=== PATIENT | female | born 1955 | race Caucasian/White ===

== ENCOUNTER 2018-01-31 13:08 | Inpatient (IN) | payer MEDICARE, MEDICAID ==
[2018-01-31 13:39] LABS: % BASOPHILS 0.9 % (0.0-2.0); % EOSINOPHILS 1.1 % (0.0-5.0); % LYMPHOCYTES 31.5 % (20.0-50.0); % MONOCYTES 8.7 % (2.0-10.0); % NEUTROPHILS 57.8 % (40.0-80.0); EOSINOPHILE ABSOLUTE 0.1 Th/cmm (0.1-0.4); HEMATOCRIT 35.2 % (41.0-60); LYMPHOCYTE ABSOLUTE 1.6 Th/cmm (1.5-3.0); MEAN CORPUSCULAR HEMOGLOBIN 32.5 pg (27.0-31.0); MEAN CORPUSCULAR HGB CONC 34.2 pg (28.0-36.0); MEAN PLATELET VOLUME 6.7 fl; MONOCYTE ABSOLUTE 0.5 Th/cmm (0.3-1.0); PLATELET COUNT 202 Th/cmm (150-400); RED CELL DISTRIBUTION WIDTH 13.1 % (11.5-20.0); WHITE BLOOD COUNT 5.2 Th/cmm (4.8-10.8)
--- NOTE | 2018-01-31 14:03 | ED Physician Chart ---
ED Chief Complaint/HPI - Patient Information Date Seen:: 01/31/18 Time Seen:: 13:20 Chief Complaint:: Agitation History of Present Illness:: onset x 3 days of agitation and hostile behavior; no report of trauma, H/As, neck pain, C/P, SOB, Abd. Pain, A/N/V/D/C, fever, chills, SIs, or urinary s/s Allergies:: Allergies Allergy/AdvReac Type Severity Reaction Status Date / Time No Known Allergies Allergy Verified 01/31/18 13:20 Vitals:: Vital Signs - 8 hr 01/31/18 13:20 Temp 98.4 F HR 65 RR 16 BP 112/63 O2 Sat % 98 Historian:: Patient, EMS Review:: Nurse's Note Reviewed, Old Chart Reviewed, EMS run form Reviewed ED Review of Systems - Review of Systems General/Constitutional: No fever, No chills, No weight loss, No weakness, No diaphoresis, No edema, No loss of appetite Skin: No skin lesions, No rash, No bruising Head: No headache, No light-headedness Eyes: No loss of vision, No pain, No diplopia ENT: No earache, No nasal drainage, No sore throat, No tinnitus Neck: No neck pain, No swelling, No thyromegaly, No stiffness, No mass noted Cardio Vascular: No chest pain, No palpitations, No PND, No orthopnea, No edema Pulmonary: No SOB, No cough, No sputum, No wheezing GI: No nausea, No vomiting, No diarrhea, No pain, No melena, No hematochezia, No constipation, No hematemesis G/U: No dysuria, No frequency, No hematuria, No nacturia Scrap Drop Engineer: No vaginal discharge, No abnormal vaginal bleed, No contraction Musculoskeletal: No bone or joint pain, No back pain, No muscle pain Endocrine: No polyuria, No polydipsia Psychiatric: Prior psych history, Depression, Anxiety, No suicidal ideation, No homicidal ideation, No auditory hallucination, No visual hallucination Hematopoietic: No bruising, No lymphadenopathy Allergic/Immuno: No urticaria, No angioedema Neurological: No syncope, No focal symptoms, No weakness, No paresthesia, No headache, No seizure, No dizziness, No confusion, No vertigo ED Past Medical History - Past Medical History Obtainable: Yes Past Medical History: HTN, Other (Subdural Hematoma) Family History: HTN Social History: Non Smoker, No Alcohol, No Drug Use, Single, Care Facility Surgical History: None Psychiatricy History: Depression, Bipolar Medication: Reviewed ED Physical Exam - Physical Examination General/Constitutional: Awake, Well-developed, well-nourished, Alert, No distress, GCS 15, Non-toxic appearing, Ambulatory Head: Atraumatic Eyes: Lids, conjuctiva normal, PERRL, EOMI Skin: Nl inspection, No rash, No skin lesions, No ecchymosis, Well hydrated, No lymphadenopathy ENMT: External ears, nose nl, TM canals nl, Nasal exam nl, Lips, teeth, gums nl , Oropharynx nl, Tonsils nl Neck: Nontender, Full ROM w/o pain, No JVD, No nuchal rigidity, No bruit, No mass, No stridor Respiratory: Nl effort/Exclusion, Clear to Auscultation, No Wheeze/Rhonchi/Rales Cardio Vascular: RRR, No murmur, gallop, rubs, NL S1 S2 GI: No tenderness/rebounding/guarding, No organomegaly, No hernia, Normal BS's, Nondistended, No mass/bruits, No McBurney tenderness Other GI comments:: no pulsatile masses : No CVA tenderness Extremities: No tenderness or effusion, Full ROM, normal strength in all extremities, No edema, Normal digits & nails Neuro/Psych: Alert/oriented, DTR's symmetric, Normal sensory exam, Normal motor strength, Judgement/insight normal, Mood normal, Normal gait, No focal deficits Other Neuro/Psych comments:: + Psychomotor Agitation; no SIs; Mood/Affect: Labile Misc: Normal back, No paraspinal tenderness ED Labs/Radiology/EKG Results - Lab Results Results: Laboratory Tests 01/31/18 13:30 WBC 5.2 RBC 3.70 L Hgb 12.0 Hct 35.2 L MCV 95.0 MCH 32.5 H MCHC Differential 34.2 RDW 13.1 Plt Count 202 MPV 6.7 Neutrophils % 57.8 Lymphocytes % 31.5 Monocytes % 8.7 Eosinophils % 1.1 Basophils % 0.9 Comments:: Reviewed ED Septic Shock - . Is Septic Shock (SBP<90, OR Lactate>4 mmol\L) present?: No - <6hrs of presentation: Vital Signs: Vital Signs - 8 hr 01/31/18 13:20 Temp 98.4 F HR 65 RR 16 BP 112/63 O2 Sat % 98 ED Reassessment (Disposition) - Reassessment Reassessment Condition:: Improved - Diagnosis Diagnosis:: Agitation; Psychosis; Medical Clearance; Bipolar Disorder; UTI; Affective Disorder - Aftercare/Follow up Instructions Aftercare/Follow-Up Instructions:: Counseled pt regarding lab results/diagnosis & need follow up, Counseled pt & family regarding lab results/diagnosis & need follow up - Patient Disposition Discharge/Transfer:: Acute Care w/in this hosp Admitted to:: [facility] Condition at Disposition:: Stable, Improved
[2018-01-31 14:05] LABS: ACETAMINOPHEN < 10.0 ug/mL (10.0-30.0); ALB/GLOB RATIO 1.1 (1.0-1.8); ALBUMIN 3.5 gm/dL (3.7-5.3); ALKALINE PHOSPHATASE 68 U/L (34-104); ANION GAP 8.8 (7.0-16.0); BILIRUBIN,TOTAL 0.3 mg/dL (0.3-1.0); BUN - UREA NITROGEN 25 mg/dL (7-25); CALCIUM SERUM 9.1 mg/dL (8.6-10.3); CARBON DIOXIDE 28.3 mEq/L (21.0-31.0); CHLORIDE 104 mEq/L (98-107); CHOLESTEROL 191 mg/dL (<200); CREATININE - SERUM 1.1 mg/dL (0.6-1.2); GFR AFRICAN-AMERICAN > 60.0 ml/min (>90); GFR NON AFRICAN-AMERICAN 53.7 ml/min; GLUCOSE 92 mg/dL (70-105); HDL -HIGH DENSITY LIPOPROTEIN 76 mg/dL (23-92); POTASSIUM SERUM 4.1 mEq/L (3.5-5.1); SALICYLATES (ASPIRIN) < 25.0 mg/L (30.0-100.0); SGOT 18 U/L (13-39); SGPT/ALT 12 U/L (7-52); SODIUM SERUM 137 mEq/L (136-145); TOTAL PROTEIN,SERUM 6.6 gm/dL (6.0-8.3); TRIGLYCERIDES 111 mg/dL (<150)
[2018-01-31 14:56] LABS: URINE SOURCE CLEAN C
[2018-01-31 14:59] LABS: URINE BILIRUBIN NEGATIVE (NEGATIVE); URINE BLOOD SMALL (NEGATIVE); URINE GLUCOSE (UA) NEGATIVE (NEGATIVE); URINE KETONE NEGATIVE (NEGATIVE); URINE LEUKOCYTE ESTERASE MODERATE (NEGATIVE); URINE MICROSCOPIC INDICATED? YES; URINE NITRATE POSITIVE (NEGATIVE); URINE PROTEIN NEGATIVE (NEGATIVE); URINE UROBILINOGEN 0.2 E.U./dL (0.2 - 1.0)
[2018-01-31 15:24] LABS: AMPHETAMINE URINE NEGATIVE (NEGATIVE); BARBITURATES URINE NEGATIVE (NEGATIVE); BENZODIAZEPINES QUAL URINE NEGATIVE (NEGATIVE); CANNABINOID THC NEGATIVE (NEGATIVE); COCAINE METABOLITE QUAL URINE NEGATIVE (NEGATIVE); METHADONE URINE NEGATIVE (NEGATIVE); METHAMPHETAMINES QUAL URINE NEGATIVE (NEGATIVE); OPIATES (MORPHINE) QUAL. URINE NEGATIVE (NEGATIVE); PHENCYCLIDINE (PCP) URINE NEGATIVE (NEGATIVE); TRICYCLICS (TCA) QUAL. URINE POSITIVE (NEGATIVE); URINE CLARITY HAZY (CLEAR); URINE COLOR YELLOW
[2018-01-31 15:26] LABS: URINE EPITHELIAL CELLS MODERATE /lpf (FEW)
[2018-01-31 15:27] LABS: URINE BACTERIA 4+ /hpf (NONE SEEN)
[2018-01-31] MEDS ORDERED: Maalox 30 mL Cup PO PRN ×2 (16:56→17:47)
[2018-01-31] MEDS ORDERED: Magnesium Hydroxide (MOM) 30 mL UDC PO PRN ×2 (16:56→17:47)
[2018-01-31 17:45] VITALS: BP 112/63
--- NOTE | 2018-01-31 22:11 | History & Physical ---
ADMIT DATE: 01/31/2018 HISTORY OF PRESENT ILLNESS: The patient is a 62-year-old female with long history of hypothyroidism, seizure disorder, renal insufficiency, dementia, psychosis, [facility] under Dr. Wagner's service for evaluation and treatment. The patient is a poor historian. On admission, the patient has some episode of agitation. The blood workup is significant for urinary tract infection. The patient was started on antibiotic, resumed on her medication. PAST MEDICAL HISTORY: Significant for hypothyroidism, seizure disorder, psychosis, dementia. PAST SURGICAL HISTORY: No recent surgery. ALLERGIES: None. MEDICATIONS: Follow admission reconciliation. SOCIAL HISTORY: No smoking, no alcohol, no drug. FAMILY HISTORY: Noncontributory. REVIEW OF SYSTEMS: SYSTEM: No history of chronic immuno disorder. CARDIOVASCULAR SYSTEM: No coronary artery disease. ENDOCRINE SYSTEM: She has history of hypothyroidism. GASTROINTESTINAL SYSTEM: No upper or lower GI bleed. NEUROLOGICAL: She has history of seizure disorder. SKELETOMUSCULAR SYSTEM: No muscular dystrophy. HEMATOLOGIC: No bleeding tendencies. RESPIRATORY SYSTEM: No asthma. GENITOURINARY: No dysuria or hematuria. She has urinary tract infection. PHYSICAL EXAMINATION: GENERAL: She is awake, not coherent. VITAL SIGNS: Temperature 98.3, heart rate 60, blood pressure 143/87. HEENT: Normocephalic. Pupils reactive to light and accommodation. Sclerae clear. NECK: Supple. Negative for lymphadenopathy, JVD, or bruit. CHEST: Air entry bilaterally normal. No rhonchi or wheezing. HEART: S1, S2 normal. No murmur or gallop rhythm. ABDOMEN: Soft, bowel sounds positive. EXTREMITIES: No edema. BACK: No vertebra. SKIN: Intact. BREASTS, PELVIC, AND RECTAL: Done by primary physician, no complaint. NEUROLOGIC: She is awake, not coherent. No focal motor deficit. Cranial nerves 2-12 is intact. LABORATORY DATA: White blood 5.2, hemoglobin 12, hematocrit 35.2, platelets 202. Sodium 137, potassium 4.1, BUN 25, creatinine 0.1. Urinalysis: Specific gravity 1.010, pH 6, nitrite positive. ASSESSMENT: 1. Urinary tract infection. 2. Hypothyroidism. 3. Seizure disorder. 4. Dementia. 5. Psychosis. PLAN: The patient admitted to the hospital under Dr. Wagner's service. Medical problems addressed during hospitalization are psychosis, urinary tract infection. Medical problems addressed at discharge are hypothyroidism and seizure disorder. The patient is medically stable for activity. Thank you, Dr. Wagner, for asking me to see your patient. JOB# [id number]
[2018-02-01] MEDS: Levothyroxine 0.075 Mg Tab PO SCH (06:49)
[2018-02-01] MEDS ORDERED: LEVOTHYROXINE SODIUM 150 MCG PO SCH (07:30)
[2018-02-01] MEDS: Multivitamin Tab PO SCH (09:17)
[2018-02-01] MEDS: Benztropine 1 MG TAB PO SCH ×2 (09:17→17:40)
--- NOTE | 2018-02-01 10:13 | Psychiatric Evaluation ---
DATE OF SERVICE: 02/01/2018 JUSTIFICATION FOR HOSPITALIZATION: Agitation for 3 days, hostile behaviors for 3 days. CHIEF COMPLAINT: "I fell off the handle." HISTORY OF PRESENT ILLNESS: A 62-year-old female, bizarre, presented due to agitation, hostile behaviors, points of the nurse and tells me "that is her daughter." The patient states the year is "28" the month is April. The patient believes she is on every medication available. The patient not really making any sense, highly confused, very poor historian, pacing back and forth, making nonsensical statements, not really able to engage in any meaningful discussion with her. The patient was aggressive last night, slept for about 6 hours. PAST PSYCHIATRIC HISTORY: Confusion and concerns for schizophrenia. FAMILY HISTORY: Noncontributory. SOCIAL HISTORY: The patient states she was born in [place], [place]. She states she is . She states that she does not know how many kids she has "I think they are all boys." The patient states her is at work. Unclear drugs, alcohol or tobacco. MEDICATIONS: Reviewed. MENTAL STATUS EXAMINATION: Stated age, unkempt, poor dentition, fair eye contact. Awake, alert. Mood "okay." Affect bizarre. Thought processes are disorganized. No SI, no HI. The patient is delusional. Insight and judgment are poor, very poor impulse control. PROVISIONAL DIAGNOSES: Schizophrenia, most likely psychosis, unspecified; mood, unspecified. Under medical please see full H and P. ESTIMATED LENGTH OF STAY: 7-10 days. ASSESSMENT: The patient aggressive, psychotic, hostile. PLAN: Increase dosing of Seroquel. Treatment plan includes group as well as milieu therapy. CONDITIONS FOR DISCHARGE: Improved mood, improved affect, better control of her agitation. JOB# [id number]
--- NOTE | 2018-02-01 13:07 | Internal Medicine Prog Note ---
Internal Medicine Subjective - Subjective Service Date: 02/01/18 Patient seen and examined:: with staff Patient is:: awake, non-verbal, in bed, confused Per staff patient has:: no adverse event Internal Medicine Objective - Results Result Diagrams: 01/31/18 13:30 01/31/18 13:30 Recent Labs: Laboratory Last Values WBC 5.2 Th/cmm (4.8-10.8) 01/31/18 13:30 RBC 3.70 Mil/cmm (3.80-5.10) L 01/31/18 13:30 Hgb 12.0 gm/dL (12-16) 01/31/18 13:30 Hct 35.2 % (41.0-60) L 01/31/18 13:30 MCV 95.0 fl (81-100) 01/31/18 13:30 MCH 32.5 pg (27.0-31.0) H 01/31/18 13:30 MCHC Differential 34.2 pg (28.0-36.0) 01/31/18 13:30 RDW 13.1 % (11.5-20.0) 01/31/18 13:30 Plt Count 202 Th/cmm (150-400) 01/31/18 13:30 MPV 6.7 fl 01/31/18 13:30 Neutrophils % 57.8 % (40.0-80.0) 01/31/18 13:30 Lymphocytes % 31.5 % (20.0-50.0) 01/31/18 13:30 Monocytes % 8.7 % (2.0-10.0) 01/31/18 13:30 Eosinophils % 1.1 % (0.0-5.0) 01/31/18 13:30 Basophils % 0.9 % (0.0-2.0) 01/31/18 13:30 Sodium 137 mEq/L (136-145) 01/31/18 13:30 Potassium 4.1 mEq/L (3.5-5.1) 01/31/18 13:30 Chloride 104 mEq/L (98-107) 01/31/18 13:30 Carbon Dioxide 28.3 mEq/L (21.0-31.0) 01/31/18 13:30 Anion Gap 8.8 (7.0-16.0) 01/31/18 13:30 BUN 25 mg/dL (7-25) 01/31/18 13:30 Creatinine 1.1 mg/dL (0.6-1.2) 01/31/18 13:30 Est GFR ( Amer) > 60.0 ml/min (>90) 01/31/18 13:30 Est GFR (Non-Af Amer) 53.7 ml/min 01/31/18 13:30 BUN/Creatinine Ratio 22.7 01/31/18 13:30 Glucose 92 mg/dL (70-105) 01/31/18 13:30 Calcium 9.1 mg/dL (8.6-10.3) 01/31/18 13:30 Total Bilirubin 0.3 mg/dL (0.3-1.0) 01/31/18 13:30 AST 18 U/L (13-39) 01/31/18 13:30 ALT 12 U/L (7-52) 01/31/18 13:30 Alkaline Phosphatase 68 U/L (34-104) 01/31/18 13:30 Troponin I 0.01 ng/mL (0.01-0.05) 01/31/18 13:30 Total Protein 6.6 gm/dL (6.0-8.3) 01/31/18 13:30 Albumin 3.5 gm/dL (3.7-5.3) L 01/31/18 13:30 Globulin 3.1 gm/dL 01/31/18 13:30 Albumin/Globulin Ratio 1.1 (1.0-1.8) 01/31/18 13:30 Triglycerides 111 mg/dL (<150) 01/31/18 13:30 Cholesterol 191 mg/dL (<200) 01/31/18 13:30 LDL Cholesterol Direct 91 mg/dL (75-193) 01/31/18 13:30 HDL Cholesterol 76 mg/dL (23-92) 01/31/18 13:30 TSH 3.99 uIU/ml (0.34-5.60) 01/31/18 13:30 Urine Source CLEAN C 01/31/18 14:00 Urine Color YELLOW 01/31/18 14:00 Urine Clarity HAZY (CLEAR) 01/31/18 14:00 Urine pH 6.0 (4.6 - 8.0) 01/31/18 14:00 Ur Specific [place] 1.010 (1.005-1.030) 01/31/18 14:00 Urine Protein NEGATIVE mg/dL (NEGATIVE) 01/31/18 14:00 Urine Glucose (UA) NEGATIVE mg/dL (NEGATIVE) 01/31/18 14:00 Urine Ketones NEGATIVE mg/dL (NEGATIVE) 01/31/18 14:00 Urine Blood SMALL (NEGATIVE) H 01/31/18 14:00 Urine Nitrate POSITIVE (NEGATIVE) H 01/31/18 14:00 Urine Bilirubin NEGATIVE (NEGATIVE) 01/31/18 14:00 Urine Urobilinogen 0.2 E.U./dL (0.2 - 1.0) 01/31/18 14:00 Ur Leukocyte Esterase MODERATE (NEGATIVE) H 01/31/18 14:00 Urine RBC 2-5 /hpf (0-5) 01/31/18 14:00 Urine WBC 6-10 /hpf (0-5) H 01/31/18 14:00 Ur Epithelial Cells MODERATE /lpf (FEW) 01/31/18 14:00 Urine Bacteria 4+ /hpf (NONE SEEN) H 01/31/18 14:00 Salicylates < 25.0 mg/L (30.0-100.0) L 01/31/18 13:30 Urine Opiates Screen NEGATIVE (NEGATIVE) 01/31/18 14:00 Urine Methadone Screen NEGATIVE (NEGATIVE) 01/31/18 14:00 Acetaminophen < 10.0 ug/mL (10.0-30.0) L 01/31/18 13:30 Ur Barbiturates Screen NEGATIVE (NEGATIVE) 01/31/18 14:00 Ur Tricyclics Screen POSITIVE (NEGATIVE) H 01/31/18 14:00 Ur Phencyclidine Scrn NEGATIVE (NEGATIVE) 01/31/18 14:00 Amphetamines Screen NEGATIVE (NEGATIVE) 01/31/18 14:00 U Methamphetamines Scrn NEGATIVE (NEGATIVE) 01/31/18 14:00 U Benzodiazepines Scrn NEGATIVE (NEGATIVE) 01/31/18 14:00 U Cocaine Metab Screen NEGATIVE (NEGATIVE) 01/31/18 14:00 U Cannabinoids Screen NEGATIVE (NEGATIVE) 01/31/18 14:00 Ethyl Alcohol < 10 mg/dL (0-10) 01/31/18 13:30 - Physical Exam Vitals and I&O: Vital Signs Temp 0 F 02/01/18 06:19 Pulse 60 01/31/18 16:54 Resp 20 01/31/18 20:00 BP 112/63 01/31/18 17:45 Pulse Ox 99 01/31/18 16:54 Intake & Output 01/31/18 02/01/18 02/01/18 18:59 06:59 18:59 Intake Total 240 Balance 240 Weight (lbs) 63.503 kg Intake: Oral 240 Other: # Voids 3 # Bowel Movements 0 Weight Source Estimated Active Medications: Current Medications Acetaminophen (Tylenol) 650 mg PO Q4HR PRN PRN Reason: Mild Pain / Temp above 100 Stop: 04/01/18 16:55 Al Hydrox/Mg Hydrox/Simethicone (Maalox) 30 ml PO Q4HR PRN PRN Reason: GI DISTRESS Stop: 04/01/18 16:55 Benztropine Mesylate (Cogentin) 2 mg PO BID [facility] Stop: 04/02/18 08:59 Last Admin: 02/01/18 09:17 Dose: 2 mg Carbamazepine (Tegretol) 400 mg PO BID [facility]; Protocol Stop: 04/02/18 08:59 Last Admin: 02/01/18 09:17 Dose: 400 mg Ciprofloxacin (Cipro) 250 mg PO BID [facility] Stop: 04/02/18 08:59 Last Admin: 02/01/18 09:16 Dose: 250 mg Divalproex Sodium (Depakote Dr) 250 mg PO TID [facility]; Protocol Stop: 04/01/18 20:59 Last Admin: 02/01/18 09:18 Dose: 250 mg Docusate Sodium (Colace) 250 mg PO DAILY [facility] Stop: 04/02/18 08:59 Last Admin: 02/01/18 09:18 Dose: 250 mg Fludrocortisone Acetate (Florinef) 0.1 mg PO BID [facility] Stop: 04/02/18 08:59 Last Admin: 02/01/18 09:18 Dose: 0.1 mg Levetiracetam (Keppra) 500 mg PO BID [facility] Stop: 04/02/18 08:59 Last Admin: 02/01/18 09:17 Dose: 500 mg Levothyroxine Sodium (Synthroid) 0.15 mg PO QDAC [facility] Stop: 04/02/18 07:29 Last Admin: 02/01/18 06:49 Dose: 0.15 mg Lorazepam (Ativan) 0.5 mg PO Q6HR PRN; Protocol PRN Reason: Agitation Stop: 04/01/18 17:03 Last Admin: 02/01/18 12:19 Dose: 0.5 mg Magnesium Hydroxide (Milk Of Magnesia) 30 ml PO HS PRN PRN Reason: Constipation Magnesium Hydroxide (Milk Of Magnesia) 30 ml PO HS PRN PRN Reason: Constipation Stop: 04/01/18 17:46 Multivitamins/Vitamin C (Theragran) 1 tab PO DAILY [facility] Stop: 04/02/18 08:59 Last Admin: 02/01/18 09:17 Dose: 1 tab Nitrofurantoin Macrocrystals (Macrobid) 100 mg PO BID [facility]; Protocol Stop: 04/01/18 16:59 Last Admin: 02/01/18 09:16 Dose: 100 mg Quetiapine Fumarate (Seroquel) 400 mg PO HS [facility]; Protocol Stop: 04/01/18 20:59 Last Admin: 01/31/18 22:00 Dose: Not Given Quetiapine Fumarate (Seroquel) 50 mg PO BID [facility]; Protocol Stop: 04/02/18 16:59 Senna (Senna) 8.6 mg PO HS [facility] Stop: 04/01/18 20:59 Last Admin: 01/31/18 22:00 Dose: Not Given Tolterodine Tartrate (Detrol) 2 mg PO BID [facility] Stop: 04/02/18 08:59 Last Admin: 02/01/18 09:18 Dose: 2 mg Zolpidem Tartrate (Ambien) 5 mg PO HS PRN PRN Reason: Insomnia Stop: 04/01/18 16:55 General: weak, demented HEENT: NC/AT, PERRLA, EOMI, anicteric sclerae, throat clear Neck: Supple, No JVD, No thyromegaly, +2 carotid pulse wo bruit, No LAD Lungs: CTAB Cardiovascular: RRR, Normal S1, Normal S2, without murmur Abdomen: soft, non-tender, non-distended Extremities: clear Neurological: no change Internal Medicine Assmt/Plan - Assessment Assessment: 1.UTI. 2.SEIZURE DISORDERED. 3.HYPOTHYROIDISIM. 4.DEMENTIA. - Plan Plan: CONTINUE ON CURRENT MEDICATION AND DIET.
[2018-02-02] MEDS: Levothyroxine 0.075 Mg Tab PO SCH (06:34)
[2018-02-02] MEDS: Multivitamin Tab PO SCH (08:01)
[2018-02-02] MEDS: Benztropine 1 MG TAB PO SCH ×2 (08:01→17:01)
--- NOTE | 2018-02-02 08:41 | Progress Notes ---
DATE: 02/02/2018 SUBJECTIVE: The patient had been agitated, very upset. 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 She is not making any sense. No bizarre, disorganized, mostly around the nursing station having unintelligible conversations with the patient's talking about topics make absolutely no sense. The patient intrusive, poor boundaries, argumentative, sometimes aggressive towards staff. The patient wants to only receive treatment and take medications as she receives things like coffee or cigarettes. Some episodes of aggressive behaviors are ongoing. ASSESSMENT: The patient is psychotic, internally preoccupied, bizarre. PLAN: Continue Seroquel dosing, recent dose increase of Seroquel. We will continue to monitor, titrate and adjust medications. JOB# [id number]
[2018-02-02] MEDS ORDERED: Probiotic Screen MC PRN (12:15)
--- NOTE | 2018-02-02 22:34 | Internal Medicine Prog Note ---
Internal Medicine Subjective - Subjective Service Date: 02/02/18 Patient seen and examined:: without staff Patient is:: awake, non-verbal, in bed, confused Per staff patient has:: no adverse event Internal Medicine Objective - Results Result Diagrams: 01/31/18 13:30 01/31/18 13:30 Recent Labs: Laboratory Last Values WBC 5.2 Th/cmm (4.8-10.8) 01/31/18 13:30 RBC 3.70 Mil/cmm (3.80-5.10) L 01/31/18 13:30 Hgb 12.0 gm/dL (12-16) 01/31/18 13:30 Hct 35.2 % (41.0-60) L 01/31/18 13:30 MCV 95.0 fl (81-100) 01/31/18 13:30 MCH 32.5 pg (27.0-31.0) H 01/31/18 13:30 MCHC Differential 34.2 pg (28.0-36.0) 01/31/18 13:30 RDW 13.1 % (11.5-20.0) 01/31/18 13:30 Plt Count 202 Th/cmm (150-400) 01/31/18 13:30 MPV 6.7 fl 01/31/18 13:30 Neutrophils % 57.8 % (40.0-80.0) 01/31/18 13:30 Lymphocytes % 31.5 % (20.0-50.0) 01/31/18 13:30 Monocytes % 8.7 % (2.0-10.0) 01/31/18 13:30 Eosinophils % 1.1 % (0.0-5.0) 01/31/18 13:30 Basophils % 0.9 % (0.0-2.0) 01/31/18 13:30 Sodium 137 mEq/L (136-145) 01/31/18 13:30 Potassium 4.1 mEq/L (3.5-5.1) 01/31/18 13:30 Chloride 104 mEq/L (98-107) 01/31/18 13:30 Carbon Dioxide 28.3 mEq/L (21.0-31.0) 01/31/18 13:30 Anion Gap 8.8 (7.0-16.0) 01/31/18 13:30 BUN 25 mg/dL (7-25) 01/31/18 13:30 Creatinine 1.1 mg/dL (0.6-1.2) 01/31/18 13:30 Est GFR ( Amer) > 60.0 ml/min (>90) 01/31/18 13:30 Est GFR (Non-Af Amer) 53.7 ml/min 01/31/18 13:30 BUN/Creatinine Ratio 22.7 01/31/18 13:30 Glucose 92 mg/dL (70-105) 01/31/18 13:30 Calcium 9.1 mg/dL (8.6-10.3) 01/31/18 13:30 Total Bilirubin 0.3 mg/dL (0.3-1.0) 01/31/18 13:30 AST 18 U/L (13-39) 01/31/18 13:30 ALT 12 U/L (7-52) 01/31/18 13:30 Alkaline Phosphatase 68 U/L (34-104) 01/31/18 13:30 Troponin I 0.01 ng/mL (0.01-0.05) 01/31/18 13:30 Total Protein 6.6 gm/dL (6.0-8.3) 01/31/18 13:30 Albumin 3.5 gm/dL (3.7-5.3) L 01/31/18 13:30 Globulin 3.1 gm/dL 01/31/18 13:30 Albumin/Globulin Ratio 1.1 (1.0-1.8) 01/31/18 13:30 Triglycerides 111 mg/dL (<150) 01/31/18 13:30 Cholesterol 191 mg/dL (<200) 01/31/18 13:30 LDL Cholesterol Direct 91 mg/dL (75-193) 01/31/18 13:30 HDL Cholesterol 76 mg/dL (23-92) 01/31/18 13:30 TSH 3.99 uIU/ml (0.34-5.60) 01/31/18 13:30 Urine Source CLEAN C 01/31/18 14:00 Urine Color YELLOW 01/31/18 14:00 Urine Clarity HAZY (CLEAR) 01/31/18 14:00 Urine pH 6.0 (4.6 - 8.0) 01/31/18 14:00 Ur Specific [place] 1.010 (1.005-1.030) 01/31/18 14:00 Urine Protein NEGATIVE mg/dL (NEGATIVE) 01/31/18 14:00 Urine Glucose (UA) NEGATIVE mg/dL (NEGATIVE) 01/31/18 14:00 Urine Ketones NEGATIVE mg/dL (NEGATIVE) 01/31/18 14:00 Urine Blood SMALL (NEGATIVE) H 01/31/18 14:00 Urine Nitrate POSITIVE (NEGATIVE) H 01/31/18 14:00 Urine Bilirubin NEGATIVE (NEGATIVE) 01/31/18 14:00 Urine Urobilinogen 0.2 E.U./dL (0.2 - 1.0) 01/31/18 14:00 Ur Leukocyte Esterase MODERATE (NEGATIVE) H 01/31/18 14:00 Urine RBC 2-5 /hpf (0-5) 01/31/18 14:00 Urine WBC 6-10 /hpf (0-5) H 01/31/18 14:00 Ur Epithelial Cells MODERATE /lpf (FEW) 01/31/18 14:00 Urine Bacteria 4+ /hpf (NONE SEEN) H 01/31/18 14:00 Salicylates < 25.0 mg/L (30.0-100.0) L 01/31/18 13:30 Urine Opiates Screen NEGATIVE (NEGATIVE) 01/31/18 14:00 Urine Methadone Screen NEGATIVE (NEGATIVE) 01/31/18 14:00 Acetaminophen < 10.0 ug/mL (10.0-30.0) L 01/31/18 13:30 Ur Barbiturates Screen NEGATIVE (NEGATIVE) 01/31/18 14:00 Ur Tricyclics Screen POSITIVE (NEGATIVE) H 01/31/18 14:00 Ur Phencyclidine Scrn NEGATIVE (NEGATIVE) 01/31/18 14:00 Amphetamines Screen NEGATIVE (NEGATIVE) 01/31/18 14:00 U Methamphetamines Scrn NEGATIVE (NEGATIVE) 01/31/18 14:00 U Benzodiazepines Scrn NEGATIVE (NEGATIVE) 01/31/18 14:00 U Cocaine Metab Screen NEGATIVE (NEGATIVE) 01/31/18 14:00 U Cannabinoids Screen NEGATIVE (NEGATIVE) 01/31/18 14:00 Ethyl Alcohol < 10 mg/dL (0-10) 01/31/18 13:30 - Physical Exam Vitals and I&O: Vital Signs Temp 98.7 F 02/02/18 14:00 Pulse 72 02/02/18 14:00 Resp 20 02/02/18 19:49 BP 130/59 02/02/18 14:00 Pulse Ox 100 02/02/18 14:00 Intake & Output 02/02/18 02/02/18 02/03/18 06:59 18:59 06:59 Intake Total 120 1600 Balance 120 1600 Intake: Oral 120 1600 Other: # Voids 3 4 # Bowel Movements 0 1 Active Medications: Current Medications Acetaminophen (Tylenol) 650 mg PO Q4HR PRN PRN Reason: Mild Pain / Temp above 100 Stop: 04/01/18 16:55 Al Hydrox/Mg Hydrox/Simethicone (Maalox) 30 ml PO Q4HR PRN PRN Reason: GI DISTRESS Stop: 04/01/18 16:55 Benztropine Mesylate (Cogentin) 2 mg PO BID [facility] Stop: 04/02/18 08:59 Last Admin: 02/02/18 17:01 Dose: 2 mg Carbamazepine (Tegretol) 400 mg PO BID [facility]; Protocol Stop: 04/02/18 08:59 Last Admin: 02/02/18 17:01 Dose: 400 mg Ciprofloxacin (Cipro) 250 mg PO BID [facility] Stop: 04/02/18 08:59 Last Admin: 02/02/18 17:01 Dose: 250 mg Divalproex Sodium (Depakote Dr) 250 mg PO TID [facility]; Protocol Stop: 04/01/18 20:59 Last Admin: 02/02/18 21:03 Dose: 250 mg Docusate Sodium (Colace) 250 mg PO DAILY [facility] Stop: 04/02/18 08:59 Last Admin: 02/02/18 08:01 Dose: 250 mg Fludrocortisone Acetate (Florinef) 0.1 mg PO BID [facility] Stop: 04/02/18 08:59 Last Admin: 02/02/18 17:05 Dose: 0.1 mg Lactobacillus Rhamnosus (Culturelle 15b) 1 each PO DAILY [facility] Stop: 04/04/18 08:59 Levetiracetam (Keppra) 500 mg PO BID [facility] Stop: 04/02/18 08:59 Last Admin: 02/02/18 17:01 Dose: 500 mg Levothyroxine Sodium (Synthroid) 0.15 mg PO QDAC [facility] Stop: 04/02/18 07:29 Last Admin: 02/02/18 06:34 Dose: 0.15 mg Lorazepam (Ativan) 0.5 mg PO Q6HR PRN; Protocol PRN Reason: Agitation Stop: 04/01/18 17:03 Last Admin: 02/02/18 13:52 Dose: 0.5 mg Magnesium Hydroxide (Milk Of Magnesia) 30 ml PO HS PRN PRN Reason: Constipation Magnesium Hydroxide (Milk Of Magnesia) 30 ml PO HS PRN PRN Reason: Constipation Stop: 04/01/18 17:46 Miscellaneous (Probiotic Screen) 1 ea MC PRN PRN PRN Reason: PROTOCOL Stop: 04/03/18 12:14 Multivitamins/Vitamin C (Theragran) 1 tab PO DAILY [facility] Stop: 04/02/18 08:59 Last Admin: 02/02/18 08:01 Dose: 1 tab Nitrofurantoin Macrocrystals (Macrobid) 100 mg PO BID [facility]; Protocol Stop: 04/01/18 16:59 Last Admin: 02/02/18 17:01 Dose: 100 mg Quetiapine Fumarate (Seroquel) 400 mg PO HS [facility]; Protocol Stop: 04/01/18 20:59 Last Admin: 02/02/18 21:03 Dose: 400 mg Quetiapine Fumarate (Seroquel) 50 mg PO BID [facility]; Protocol Stop: 04/02/18 16:59 Senna (Senna) 8.6 mg PO HS [facility] Stop: 04/01/18 20:59 Last Admin: 02/02/18 21:03 Dose: 8.6 mg Tolterodine Tartrate (Detrol) 2 mg PO BID [facility] Stop: 04/02/18 08:59 Last Admin: 02/02/18 17:01 Dose: 2 mg Zolpidem Tartrate (Ambien) 5 mg PO HS PRN PRN Reason: Insomnia Stop: 04/01/18 16:55 General: weak, demented HEENT: NC/AT, PERRLA, EOMI, anicteric sclerae, throat clear Neck: Supple, No JVD, No thyromegaly, +2 carotid pulse wo bruit, No LAD Lungs: CTAB Cardiovascular: RRR, Normal S1, Normal S2, without murmur Abdomen: soft, non-tender, non-distended Extremities: clear Neurological: no change Internal Medicine Assmt/Plan - Assessment Assessment: 1.UTI. 2.SEIZURE DISORDERED. 3.HYPOTHYROIDISIM. 4.DEMENTIA. - Plan Plan: CONTINUE ON CURRENT MEDICATION AND DIET.
[2018-02-03] MEDS: Levothyroxine 0.075 Mg Tab PO SCH (06:39)
--- NOTE | 2018-02-03 08:03 | Progress Notes ---
DATE: 02/03/2018 SUBJECTIVE: The patient bizarre, psychotic appearing, confused, forgetful, making nonsensical statements. She is calm at this time, but remains intrusive, wandering on the units, labile. No remorse about her violent behaviors, sometimes sexually inappropriate. ASSESSMENT: The patient nonsensical, not making any sense on exam, still remains quite psychotic and delusional, bizarre ideations. Continue Seroquel. We will continue to monitor on an inpatient. JOB# [id number]
[2018-02-03] MEDS: Lactobacillus Rhamnosus GG 15 Billion CFU CAP.SPRINK PO SCH (09:03)
[2018-02-03] MEDS: Benztropine 1 MG TAB PO SCH ×2 (09:03→16:48)
[2018-02-03] MEDS: Multivitamin Tab PO SCH (09:04)
[2018-02-03] MEDS ORDERED: Haloperidol Lactate 5 mg/mL 1mL Vial IM ONE (11:15)
[2018-02-03] MEDS ORDERED: Haloperidol Lactate 5 mg/mL 1mL Vial ONE (11:23)
--- NOTE | 2018-02-03 21:50 | Internal Medicine Prog Note ---
Internal Medicine Subjective - Subjective Service Date: 02/03/18 Patient seen and examined:: with staff Patient is:: awake, non-verbal, in bed, confused Per staff patient has:: no adverse event Internal Medicine Objective - Results Result Diagrams: 01/31/18 13:30 01/31/18 13:30 Recent Labs: Laboratory Last Values WBC 5.2 Th/cmm (4.8-10.8) 01/31/18 13:30 RBC 3.70 Mil/cmm (3.80-5.10) L 01/31/18 13:30 Hgb 12.0 gm/dL (12-16) 01/31/18 13:30 Hct 35.2 % (41.0-60) L 01/31/18 13:30 MCV 95.0 fl (81-100) 01/31/18 13:30 MCH 32.5 pg (27.0-31.0) H 01/31/18 13:30 MCHC Differential 34.2 pg (28.0-36.0) 01/31/18 13:30 RDW 13.1 % (11.5-20.0) 01/31/18 13:30 Plt Count 202 Th/cmm (150-400) 01/31/18 13:30 MPV 6.7 fl 01/31/18 13:30 Neutrophils % 57.8 % (40.0-80.0) 01/31/18 13:30 Lymphocytes % 31.5 % (20.0-50.0) 01/31/18 13:30 Monocytes % 8.7 % (2.0-10.0) 01/31/18 13:30 Eosinophils % 1.1 % (0.0-5.0) 01/31/18 13:30 Basophils % 0.9 % (0.0-2.0) 01/31/18 13:30 Sodium 137 mEq/L (136-145) 01/31/18 13:30 Potassium 4.1 mEq/L (3.5-5.1) 01/31/18 13:30 Chloride 104 mEq/L (98-107) 01/31/18 13:30 Carbon Dioxide 28.3 mEq/L (21.0-31.0) 01/31/18 13:30 Anion Gap 8.8 (7.0-16.0) 01/31/18 13:30 BUN 25 mg/dL (7-25) 01/31/18 13:30 Creatinine 1.1 mg/dL (0.6-1.2) 01/31/18 13:30 Est GFR ( Amer) > 60.0 ml/min (>90) 01/31/18 13:30 Est GFR (Non-Af Amer) 53.7 ml/min 01/31/18 13:30 BUN/Creatinine Ratio 22.7 01/31/18 13:30 Glucose 92 mg/dL (70-105) 01/31/18 13:30 Calcium 9.1 mg/dL (8.6-10.3) 01/31/18 13:30 Total Bilirubin 0.3 mg/dL (0.3-1.0) 01/31/18 13:30 AST 18 U/L (13-39) 01/31/18 13:30 ALT 12 U/L (7-52) 01/31/18 13:30 Alkaline Phosphatase 68 U/L (34-104) 01/31/18 13:30 Troponin I 0.01 ng/mL (0.01-0.05) 01/31/18 13:30 Total Protein 6.6 gm/dL (6.0-8.3) 01/31/18 13:30 Albumin 3.5 gm/dL (3.7-5.3) L 01/31/18 13:30 Globulin 3.1 gm/dL 01/31/18 13:30 Albumin/Globulin Ratio 1.1 (1.0-1.8) 01/31/18 13:30 Triglycerides 111 mg/dL (<150) 01/31/18 13:30 Cholesterol 191 mg/dL (<200) 01/31/18 13:30 LDL Cholesterol Direct 91 mg/dL (75-193) 01/31/18 13:30 HDL Cholesterol 76 mg/dL (23-92) 01/31/18 13:30 TSH 3.99 uIU/ml (0.34-5.60) 01/31/18 13:30 Urine Source CLEAN C 01/31/18 14:00 Urine Color YELLOW 01/31/18 14:00 Urine Clarity HAZY (CLEAR) 01/31/18 14:00 Urine pH 6.0 (4.6 - 8.0) 01/31/18 14:00 Ur Specific [place] 1.010 (1.005-1.030) 01/31/18 14:00 Urine Protein NEGATIVE mg/dL (NEGATIVE) 01/31/18 14:00 Urine Glucose (UA) NEGATIVE mg/dL (NEGATIVE) 01/31/18 14:00 Urine Ketones NEGATIVE mg/dL (NEGATIVE) 01/31/18 14:00 Urine Blood SMALL (NEGATIVE) H 01/31/18 14:00 Urine Nitrate POSITIVE (NEGATIVE) H 01/31/18 14:00 Urine Bilirubin NEGATIVE (NEGATIVE) 01/31/18 14:00 Urine Urobilinogen 0.2 E.U./dL (0.2 - 1.0) 01/31/18 14:00 Ur Leukocyte Esterase MODERATE (NEGATIVE) H 01/31/18 14:00 Urine RBC 2-5 /hpf (0-5) 01/31/18 14:00 Urine WBC 6-10 /hpf (0-5) H 01/31/18 14:00 Ur Epithelial Cells MODERATE /lpf (FEW) 01/31/18 14:00 Urine Bacteria 4+ /hpf (NONE SEEN) H 01/31/18 14:00 Salicylates < 25.0 mg/L (30.0-100.0) L 01/31/18 13:30 Urine Opiates Screen NEGATIVE (NEGATIVE) 01/31/18 14:00 Urine Methadone Screen NEGATIVE (NEGATIVE) 01/31/18 14:00 Acetaminophen < 10.0 ug/mL (10.0-30.0) L 01/31/18 13:30 Ur Barbiturates Screen NEGATIVE (NEGATIVE) 01/31/18 14:00 Ur Tricyclics Screen POSITIVE (NEGATIVE) H 01/31/18 14:00 Ur Phencyclidine Scrn NEGATIVE (NEGATIVE) 01/31/18 14:00 Amphetamines Screen NEGATIVE (NEGATIVE) 01/31/18 14:00 U Methamphetamines Scrn NEGATIVE (NEGATIVE) 01/31/18 14:00 U Benzodiazepines Scrn NEGATIVE (NEGATIVE) 01/31/18 14:00 U Cocaine Metab Screen NEGATIVE (NEGATIVE) 01/31/18 14:00 U Cannabinoids Screen NEGATIVE (NEGATIVE) 01/31/18 14:00 Ethyl Alcohol < 10 mg/dL (0-10) 01/31/18 13:30 - Physical Exam Vitals and I&O: Vital Signs Temp 97.2 F 02/03/18 20:47 Pulse 80 02/03/18 20:47 Resp 20 02/03/18 20:47 BP 150/79 02/03/18 20:47 Pulse Ox 92 02/03/18 20:47 Intake & Output 02/03/18 02/03/18 02/04/18 06:59 18:59 06:59 Intake Total 1200 240 Balance 1200 240 Intake: Oral 1200 240 Other: # Voids 2 # Bowel Movements 1 Stool Characteristics Soft Soft Formed Formed Active Medications: Current Medications Acetaminophen (Tylenol) 650 mg PO Q4HR PRN PRN Reason: Mild Pain / Temp above 100 Stop: 04/01/18 16:55 Al Hydrox/Mg Hydrox/Simethicone (Maalox) 30 ml PO Q4HR PRN PRN Reason: GI DISTRESS Stop: 04/01/18 16:55 Benztropine Mesylate (Cogentin) 2 mg PO BID [facility] Stop: 04/02/18 08:59 Last Admin: 02/03/18 16:48 Dose: 2 mg Carbamazepine (Tegretol) 400 mg PO BID [facility]; Protocol Stop: 04/02/18 08:59 Last Admin: 02/03/18 16:48 Dose: 400 mg Ciprofloxacin (Cipro) 250 mg PO BID [facility] Stop: 04/02/18 08:59 Last Admin: 02/03/18 16:48 Dose: 250 mg Divalproex Sodium (Depakote Dr) 250 mg PO TID [facility]; Protocol Stop: 04/01/18 20:59 Last Admin: 02/03/18 20:47 Dose: 250 mg Docusate Sodium (Colace) 250 mg PO DAILY [facility] Stop: 04/02/18 08:59 Last Admin: 02/03/18 09:04 Dose: 250 mg Fludrocortisone Acetate (Florinef) 0.1 mg PO BID [facility] Stop: 04/02/18 08:59 Last Admin: 02/03/18 16:49 Dose: 0.1 mg Lactobacillus Rhamnosus (Culturelle 15b) 1 each PO DAILY [facility] Stop: 04/04/18 08:59 Last Admin: 02/03/18 09:03 Dose: 1 each Levetiracetam (Keppra) 500 mg PO BID [facility] Stop: 04/02/18 08:59 Last Admin: 02/03/18 16:49 Dose: 500 mg Levothyroxine Sodium (Synthroid) 0.15 mg PO QDAC [facility] Stop: 04/02/18 07:29 Last Admin: 02/03/18 06:39 Dose: 0.15 mg Lorazepam (Ativan) 0.5 mg PO Q6HR PRN; Protocol PRN Reason: Agitation Stop: 04/01/18 17:03 Last Admin: 02/03/18 20:48 Dose: 0.5 mg Magnesium Hydroxide (Milk Of Magnesia) 30 ml PO HS PRN PRN Reason: Constipation Magnesium Hydroxide (Milk Of Magnesia) 30 ml PO HS PRN PRN Reason: Constipation Stop: 04/01/18 17:46 Miscellaneous (Probiotic Screen) 1 ea MC PRN PRN PRN Reason: PROTOCOL Stop: 04/03/18 12:14 Multivitamins/Vitamin C (Theragran) 1 tab PO DAILY [facility] Stop: 04/02/18 08:59 Last Admin: 02/03/18 09:04 Dose: 1 tab Nitrofurantoin Macrocrystals (Macrobid) 100 mg PO BID [facility]; Protocol Stop: 04/01/18 16:59 Last Admin: 02/03/18 16:48 Dose: 100 mg Quetiapine Fumarate (Seroquel) 400 mg PO HS [facility]; Protocol Stop: 04/01/18 20:59 Last Admin: 02/03/18 20:47 Dose: 400 mg Quetiapine Fumarate (Seroquel) 50 mg PO BID [facility]; Protocol Stop: 04/02/18 16:59 Senna (Senna) 8.6 mg PO HS [facility] Stop: 04/01/18 20:59 Last Admin: 02/03/18 20:48 Dose: 8.6 mg Tolterodine Tartrate (Detrol) 2 mg PO BID [facility] Stop: 04/02/18 08:59 Last Admin: 02/03/18 16:49 Dose: 2 mg Zolpidem Tartrate (Ambien) 5 mg PO HS PRN PRN Reason: Insomnia Stop: 04/01/18 16:55 Last Admin: 02/03/18 20:48 Dose: 5 mg General: weak, demented HEENT: NC/AT, PERRLA, EOMI, anicteric sclerae, throat clear Neck: Supple, No JVD, No thyromegaly, +2 carotid pulse wo bruit, No LAD Lungs: CTAB Cardiovascular: RRR, Normal S1, Normal S2, without murmur Abdomen: soft, non-tender, non-distended Extremities: clear Neurological: no change Internal Medicine Assmt/Plan - Assessment Assessment: 1.UTI. 2.SEIZURE DISORDERED. 3.HYPOTHYROIDISIM. 4.DEMENTIA. - Plan Plan: CONTINUE ON CURRENT MEDICATION AND DIET.
[2018-02-04] MEDS: Levothyroxine 0.075 Mg Tab PO SCH (06:32)
[2018-02-04] MEDS: Lactobacillus Rhamnosus GG 15 Billion CFU CAP.SPRINK PO SCH (08:29)
[2018-02-04] MEDS: Multivitamin Tab PO SCH (08:29)
[2018-02-04] MEDS: Benztropine 1 MG TAB PO SCH ×2 (08:30→17:24)
--- NOTE | 2018-02-04 17:03 | General Progress Note ---
Subjective - Review of Systems Service Date: 02/04/18 Subjective: resting comfortably no distress Objective - Results Result Diagrams: 01/31/18 13:30 01/31/18 13:30 Recent Labs: Laboratory Last Values WBC 5.2 Th/cmm (4.8-10.8) 01/31/18 13:30 RBC 3.70 Mil/cmm (3.80-5.10) L 01/31/18 13:30 Hgb 12.0 gm/dL (12-16) 01/31/18 13:30 Hct 35.2 % (41.0-60) L 01/31/18 13:30 MCV 95.0 fl (81-100) 01/31/18 13:30 MCH 32.5 pg (27.0-31.0) H 01/31/18 13:30 MCHC Differential 34.2 pg (28.0-36.0) 01/31/18 13:30 RDW 13.1 % (11.5-20.0) 01/31/18 13:30 Plt Count 202 Th/cmm (150-400) 01/31/18 13:30 MPV 6.7 fl 01/31/18 13:30 Neutrophils % 57.8 % (40.0-80.0) 01/31/18 13:30 Lymphocytes % 31.5 % (20.0-50.0) 01/31/18 13:30 Monocytes % 8.7 % (2.0-10.0) 01/31/18 13:30 Eosinophils % 1.1 % (0.0-5.0) 01/31/18 13:30 Basophils % 0.9 % (0.0-2.0) 01/31/18 13:30 Sodium 137 mEq/L (136-145) 01/31/18 13:30 Potassium 4.1 mEq/L (3.5-5.1) 01/31/18 13:30 Chloride 104 mEq/L (98-107) 01/31/18 13:30 Carbon Dioxide 28.3 mEq/L (21.0-31.0) 01/31/18 13:30 Anion Gap 8.8 (7.0-16.0) 01/31/18 13:30 BUN 25 mg/dL (7-25) 01/31/18 13:30 Creatinine 1.1 mg/dL (0.6-1.2) 01/31/18 13:30 Est GFR ( Amer) > 60.0 ml/min (>90) 01/31/18 13:30 Est GFR (Non-Af Amer) 53.7 ml/min 01/31/18 13:30 BUN/Creatinine Ratio 22.7 01/31/18 13:30 Glucose 92 mg/dL (70-105) 01/31/18 13:30 Calcium 9.1 mg/dL (8.6-10.3) 01/31/18 13:30 Total Bilirubin 0.3 mg/dL (0.3-1.0) 01/31/18 13:30 AST 18 U/L (13-39) 01/31/18 13:30 ALT 12 U/L (7-52) 01/31/18 13:30 Alkaline Phosphatase 68 U/L (34-104) 01/31/18 13:30 Troponin I 0.01 ng/mL (0.01-0.05) 01/31/18 13:30 Total Protein 6.6 gm/dL (6.0-8.3) 01/31/18 13:30 Albumin 3.5 gm/dL (3.7-5.3) L 01/31/18 13:30 Globulin 3.1 gm/dL 01/31/18 13:30 Albumin/Globulin Ratio 1.1 (1.0-1.8) 01/31/18 13:30 Triglycerides 111 mg/dL (<150) 01/31/18 13:30 Cholesterol 191 mg/dL (<200) 01/31/18 13:30 LDL Cholesterol Direct 91 mg/dL (75-193) 01/31/18 13:30 HDL Cholesterol 76 mg/dL (23-92) 01/31/18 13:30 TSH 3.99 uIU/ml (0.34-5.60) 01/31/18 13:30 Urine Source CLEAN C 01/31/18 14:00 Urine Color YELLOW 01/31/18 14:00 Urine Clarity HAZY (CLEAR) 01/31/18 14:00 Urine pH 6.0 (4.6 - 8.0) 01/31/18 14:00 Ur Specific [place] 1.010 (1.005-1.030) 01/31/18 14:00 Urine Protein NEGATIVE mg/dL (NEGATIVE) 01/31/18 14:00 Urine Glucose (UA) NEGATIVE mg/dL (NEGATIVE) 01/31/18 14:00 Urine Ketones NEGATIVE mg/dL (NEGATIVE) 01/31/18 14:00 Urine Blood SMALL (NEGATIVE) H 01/31/18 14:00 Urine Nitrate POSITIVE (NEGATIVE) H 01/31/18 14:00 Urine Bilirubin NEGATIVE (NEGATIVE) 01/31/18 14:00 Urine Urobilinogen 0.2 E.U./dL (0.2 - 1.0) 01/31/18 14:00 Ur Leukocyte Esterase MODERATE (NEGATIVE) H 01/31/18 14:00 Urine RBC 2-5 /hpf (0-5) 01/31/18 14:00 Urine WBC 6-10 /hpf (0-5) H 01/31/18 14:00 Ur Epithelial Cells MODERATE /lpf (FEW) 01/31/18 14:00 Urine Bacteria 4+ /hpf (NONE SEEN) H 01/31/18 14:00 Salicylates < 25.0 mg/L (30.0-100.0) L 01/31/18 13:30 Urine Opiates Screen NEGATIVE (NEGATIVE) 01/31/18 14:00 Urine Methadone Screen NEGATIVE (NEGATIVE) 01/31/18 14:00 Acetaminophen < 10.0 ug/mL (10.0-30.0) L 01/31/18 13:30 Ur Barbiturates Screen NEGATIVE (NEGATIVE) 01/31/18 14:00 Ur Tricyclics Screen POSITIVE (NEGATIVE) H 01/31/18 14:00 Ur Phencyclidine Scrn NEGATIVE (NEGATIVE) 01/31/18 14:00 Amphetamines Screen NEGATIVE (NEGATIVE) 01/31/18 14:00 U Methamphetamines Scrn NEGATIVE (NEGATIVE) 01/31/18 14:00 U Benzodiazepines Scrn NEGATIVE (NEGATIVE) 01/31/18 14:00 U Cocaine Metab Screen NEGATIVE (NEGATIVE) 01/31/18 14:00 U Cannabinoids Screen NEGATIVE (NEGATIVE) 01/31/18 14:00 Ethyl Alcohol < 10 mg/dL (0-10) 01/31/18 13:30 - Physical Exam Vitals and I&O: Vital Signs Temp 99.2 F 02/04/18 15:19 Pulse 79 02/04/18 15:19 Resp 20 02/04/18 15:19 BP 149/85 02/04/18 15:19 Pulse Ox 96 02/04/18 15:19 Intake & Output 02/03/18 02/04/18 02/04/18 18:59 06:59 18:59 Intake Total 1200 480 Balance 1200 480 Intake: Oral 1200 480 Other: # Voids 2 # Bowel Movements 1 Stool Characteristics Soft Soft Soft Formed Formed Formed Active Medications: Current Medications Acetaminophen (Tylenol) 650 mg PO Q4HR PRN PRN Reason: Mild Pain / Temp above 100 Stop: 04/01/18 16:55 Al Hydrox/Mg Hydrox/Simethicone (Maalox) 30 ml PO Q4HR PRN PRN Reason: GI DISTRESS Stop: 04/01/18 16:55 Benztropine Mesylate (Cogentin) 2 mg PO BID [facility] Stop: 04/02/18 08:59 Last Admin: 02/04/18 08:30 Dose: 2 mg Carbamazepine (Tegretol) 400 mg PO BID [facility]; Protocol Stop: 04/02/18 08:59 Last Admin: 02/04/18 08:30 Dose: 400 mg Ciprofloxacin (Cipro) 250 mg PO BID [facility] Stop: 04/02/18 08:59 Last Admin: 02/04/18 08:25 Dose: 250 mg Divalproex Sodium (Depakote Dr) 250 mg PO TID [facility]; Protocol Stop: 04/01/18 20:59 Last Admin: 02/04/18 14:39 Dose: 250 mg Docusate Sodium (Colace) 250 mg PO DAILY [facility] Stop: 04/02/18 08:59 Last Admin: 02/04/18 08:30 Dose: 250 mg Fludrocortisone Acetate (Florinef) 0.1 mg PO BID [facility] Stop: 04/02/18 08:59 Last Admin: 02/04/18 13:42 Dose: 0.1 mg Lactobacillus Rhamnosus (Culturelle 15b) 1 each PO DAILY [facility] Stop: 04/04/18 08:59 Last Admin: 02/04/18 08:29 Dose: 1 each Levetiracetam (Keppra) 500 mg PO BID [facility] Stop: 04/02/18 08:59 Last Admin: 02/04/18 08:29 Dose: 500 mg Levothyroxine Sodium (Synthroid) 0.15 mg PO QDAC [facility] Stop: 04/02/18 07:29 Last Admin: 02/04/18 06:32 Dose: 0.15 mg Lorazepam (Ativan) 0.5 mg PO Q6HR PRN; Protocol PRN Reason: Agitation Stop: 04/01/18 17:03 Last Admin: 02/04/18 09:25 Dose: 0.5 mg Magnesium Hydroxide (Milk Of Magnesia) 30 ml PO HS PRN PRN Reason: Constipation Magnesium Hydroxide (Milk Of Magnesia) 30 ml PO HS PRN PRN Reason: Constipation Stop: 04/01/18 17:46 Miscellaneous (Probiotic Screen) 1 ea [facility] PRN PRN PRN Reason: PROTOCOL Stop: 04/03/18 12:14 Multivitamins/Vitamin C (Theragran) 1 tab PO DAILY [facility] Stop: 04/02/18 08:59 Last Admin: 02/04/18 08:29 Dose: 1 tab Nitrofurantoin Macrocrystals (Macrobid) 100 mg PO BID [facility]; Protocol Stop: 04/01/18 16:59 Last Admin: 02/04/18 08:29 Dose: 100 mg Quetiapine Fumarate (Seroquel) 400 mg PO HS [facility]; Protocol Stop: 04/01/18 20:59 Last Admin: 02/03/18 20:47 Dose: 400 mg Quetiapine Fumarate (Seroquel) 50 mg PO BID [facility]; Protocol Stop: 04/02/18 16:59 Senna (Senna) 8.6 mg PO HS [facility] Stop: 04/01/18 20:59 Last Admin: 02/03/18 20:48 Dose: 8.6 mg Tolterodine Tartrate (Detrol) 2 mg PO BID [facility] Stop: 04/02/18 08:59 Last Admin: 02/04/18 08:29 Dose: 2 mg Zolpidem Tartrate (Ambien) 5 mg PO HS PRN PRN Reason: Insomnia Stop: 04/01/18 16:55 Last Admin: 02/03/18 20:48 Dose: 5 mg General: No acute distress HEENT: Atraumatic, PERRLA, EOMI Neck: Supple, JVD, Thyromegaly Cardiovascular: Regular rate, Normal S1, Normal S2 Lungs: Clear to auscultation Abdomen: Bowel sounds, Soft Assessment/Plan - Assessment Assessment: 1.UTI. 2.SEIZURE DISORDERED. 3.HYPOTHYROIDISIM. 4.DEMENTIA. - Plan Plan: continue current treatment
[2018-02-05] MEDS: Levothyroxine 0.075 Mg Tab PO SCH (06:47)
[2018-02-05] MEDS: Benztropine 1 MG TAB PO SCH ×2 (08:29→16:11)
[2018-02-05] MEDS: Lactobacillus Rhamnosus GG 15 Billion CFU CAP.SPRINK PO SCH (08:29)
[2018-02-05] MEDS: Multivitamin Tab PO SCH (08:30)
--- NOTE | 2018-02-05 20:28 | General Progress Note ---
Subjective - Review of Systems Service Date: 02/05/18 Subjective: resting comfortably no distress Objective - Results Result Diagrams: 01/31/18 13:30 01/31/18 13:30 Recent Labs: Laboratory Last Values WBC 5.2 Th/cmm (4.8-10.8) 01/31/18 13:30 RBC 3.70 Mil/cmm (3.80-5.10) L 01/31/18 13:30 Hgb 12.0 gm/dL (12-16) 01/31/18 13:30 Hct 35.2 % (41.0-60) L 01/31/18 13:30 MCV 95.0 fl (81-100) 01/31/18 13:30 MCH 32.5 pg (27.0-31.0) H 01/31/18 13:30 MCHC Differential 34.2 pg (28.0-36.0) 01/31/18 13:30 RDW 13.1 % (11.5-20.0) 01/31/18 13:30 Plt Count 202 Th/cmm (150-400) 01/31/18 13:30 MPV 6.7 fl 01/31/18 13:30 Neutrophils % 57.8 % (40.0-80.0) 01/31/18 13:30 Lymphocytes % 31.5 % (20.0-50.0) 01/31/18 13:30 Monocytes % 8.7 % (2.0-10.0) 01/31/18 13:30 Eosinophils % 1.1 % (0.0-5.0) 01/31/18 13:30 Basophils % 0.9 % (0.0-2.0) 01/31/18 13:30 Sodium 137 mEq/L (136-145) 01/31/18 13:30 Potassium 4.1 mEq/L (3.5-5.1) 01/31/18 13:30 Chloride 104 mEq/L (98-107) 01/31/18 13:30 Carbon Dioxide 28.3 mEq/L (21.0-31.0) 01/31/18 13:30 Anion Gap 8.8 (7.0-16.0) 01/31/18 13:30 BUN 25 mg/dL (7-25) 01/31/18 13:30 Creatinine 1.1 mg/dL (0.6-1.2) 01/31/18 13:30 Est GFR ( Amer) > 60.0 ml/min (>90) 01/31/18 13:30 Est GFR (Non-Af Amer) 53.7 ml/min 01/31/18 13:30 BUN/Creatinine Ratio 22.7 01/31/18 13:30 Glucose 92 mg/dL (70-105) 01/31/18 13:30 Calcium 9.1 mg/dL (8.6-10.3) 01/31/18 13:30 Total Bilirubin 0.3 mg/dL (0.3-1.0) 01/31/18 13:30 AST 18 U/L (13-39) 01/31/18 13:30 ALT 12 U/L (7-52) 01/31/18 13:30 Alkaline Phosphatase 68 U/L (34-104) 01/31/18 13:30 Troponin I 0.01 ng/mL (0.01-0.05) 01/31/18 13:30 Total Protein 6.6 gm/dL (6.0-8.3) 01/31/18 13:30 Albumin 3.5 gm/dL (3.7-5.3) L 01/31/18 13:30 Globulin 3.1 gm/dL 01/31/18 13:30 Albumin/Globulin Ratio 1.1 (1.0-1.8) 01/31/18 13:30 Triglycerides 111 mg/dL (<150) 01/31/18 13:30 Cholesterol 191 mg/dL (<200) 01/31/18 13:30 LDL Cholesterol Direct 91 mg/dL (75-193) 01/31/18 13:30 HDL Cholesterol 76 mg/dL (23-92) 01/31/18 13:30 TSH 3.99 uIU/ml (0.34-5.60) 01/31/18 13:30 Urine Source CLEAN C 01/31/18 14:00 Urine Color YELLOW 01/31/18 14:00 Urine Clarity HAZY (CLEAR) 01/31/18 14:00 Urine pH 6.0 (4.6 - 8.0) 01/31/18 14:00 Ur Specific [place] 1.010 (1.005-1.030) 01/31/18 14:00 Urine Protein NEGATIVE mg/dL (NEGATIVE) 01/31/18 14:00 Urine Glucose (UA) NEGATIVE mg/dL (NEGATIVE) 01/31/18 14:00 Urine Ketones NEGATIVE mg/dL (NEGATIVE) 01/31/18 14:00 Urine Blood SMALL (NEGATIVE) H 01/31/18 14:00 Urine Nitrate POSITIVE (NEGATIVE) H 01/31/18 14:00 Urine Bilirubin NEGATIVE (NEGATIVE) 01/31/18 14:00 Urine Urobilinogen 0.2 E.U./dL (0.2 - 1.0) 01/31/18 14:00 Ur Leukocyte Esterase MODERATE (NEGATIVE) H 01/31/18 14:00 Urine RBC 2-5 /hpf (0-5) 01/31/18 14:00 Urine WBC 6-10 /hpf (0-5) H 01/31/18 14:00 Ur Epithelial Cells MODERATE /lpf (FEW) 01/31/18 14:00 Urine Bacteria 4+ /hpf (NONE SEEN) H 01/31/18 14:00 Salicylates < 25.0 mg/L (30.0-100.0) L 01/31/18 13:30 Urine Opiates Screen NEGATIVE (NEGATIVE) 01/31/18 14:00 Urine Methadone Screen NEGATIVE (NEGATIVE) 01/31/18 14:00 Acetaminophen < 10.0 ug/mL (10.0-30.0) L 01/31/18 13:30 Ur Barbiturates Screen NEGATIVE (NEGATIVE) 01/31/18 14:00 Ur Tricyclics Screen POSITIVE (NEGATIVE) H 01/31/18 14:00 Ur Phencyclidine Scrn NEGATIVE (NEGATIVE) 01/31/18 14:00 Amphetamines Screen NEGATIVE (NEGATIVE) 01/31/18 14:00 U Methamphetamines Scrn NEGATIVE (NEGATIVE) 01/31/18 14:00 U Benzodiazepines Scrn NEGATIVE (NEGATIVE) 01/31/18 14:00 U Cocaine Metab Screen NEGATIVE (NEGATIVE) 01/31/18 14:00 U Cannabinoids Screen NEGATIVE (NEGATIVE) 01/31/18 14:00 Ethyl Alcohol < 10 mg/dL (0-10) 01/31/18 13:30 - Physical Exam Vitals and I&O: Vital Signs Temp 98.3 F 02/05/18 20:16 Pulse 84 02/05/18 20:16 Resp 20 02/05/18 20:16 BP 129/85 02/05/18 20:16 Pulse Ox 97 02/05/18 20:16 Intake & Output 02/05/18 02/05/18 02/06/18 06:59 18:59 06:59 Intake Total 240 900 240 Balance 240 900 240 Intake: Oral 240 900 240 Other: # Voids 1 3 1 # Bowel Movements 1 Stool Characteristics Soft Soft Soft Formed Formed Formed Active Medications: Current Medications Acetaminophen (Tylenol) 650 mg PO Q4HR PRN PRN Reason: Mild Pain / Temp above 100 Stop: 04/01/18 16:55 Al Hydrox/Mg Hydrox/Simethicone (Maalox) 30 ml PO Q4HR PRN PRN Reason: GI DISTRESS Stop: 04/01/18 16:55 Benztropine Mesylate (Cogentin) 2 mg PO BID [facility] Stop: 04/02/18 08:59 Last Admin: 02/05/18 16:11 Dose: 2 mg Carbamazepine (Tegretol) 400 mg PO BID [facility]; Protocol Stop: 04/02/18 08:59 Last Admin: 02/05/18 16:11 Dose: 400 mg Ciprofloxacin (Cipro) 250 mg PO BID [facility] Stop: 04/02/18 08:59 Last Admin: 02/05/18 16:11 Dose: 250 mg Divalproex Sodium (Depakote Dr) 250 mg PO TID [facility]; Protocol Stop: 04/01/18 20:59 Last Admin: 02/05/18 16:12 Dose: 250 mg Docusate Sodium (Colace) 250 mg PO DAILY [facility] Stop: 04/02/18 08:59 Last Admin: 02/05/18 08:29 Dose: 250 mg Fludrocortisone Acetate (Florinef) 0.1 mg PO BID [facility] Stop: 04/02/18 08:59 Last Admin: 02/05/18 16:11 Dose: 0.1 mg Lactobacillus Rhamnosus (Culturelle 15b) 1 each PO DAILY [facility] Stop: 04/04/18 08:59 Last Admin: 02/05/18 08:29 Dose: 1 each Levetiracetam (Keppra) 500 mg PO BID [facility] Stop: 04/02/18 08:59 Last Admin: 02/05/18 16:12 Dose: 500 mg Levothyroxine Sodium (Synthroid) 0.15 mg PO QDAC [facility] Stop: 04/02/18 07:29 Last Admin: 02/05/18 06:47 Dose: 0.15 mg Lorazepam (Ativan) 0.5 mg PO Q6HR PRN; Protocol PRN Reason: Agitation Stop: 04/01/18 17:03 Last Admin: 02/05/18 08:30 Dose: 0.5 mg Magnesium Hydroxide (Milk Of Magnesia) 30 ml PO HS PRN PRN Reason: Constipation Magnesium Hydroxide (Milk Of Magnesia) 30 ml PO HS PRN PRN Reason: Constipation Stop: 04/01/18 17:46 Miscellaneous (Probiotic Screen) 1 ea MC PRN PRN PRN Reason: PROTOCOL Stop: 04/03/18 12:14 Multivitamins/Vitamin C (Theragran) 1 tab PO DAILY [facility] Stop: 04/02/18 08:59 Last Admin: 02/05/18 08:30 Dose: 1 tab Nitrofurantoin Macrocrystals (Macrobid) 100 mg PO BID [facility]; Protocol Stop: 04/01/18 16:59 Last Admin: 02/05/18 16:11 Dose: 100 mg Quetiapine Fumarate (Seroquel) 400 mg PO HS [facility]; Protocol Stop: 04/01/18 20:59 Last Admin: 02/04/18 20:49 Dose: 400 mg Quetiapine Fumarate (Seroquel) 50 mg PO BID [facility]; Protocol Stop: 04/06/18 16:59 Last Admin: 02/05/18 16:12 Dose: 50 mg Senna (Senna) 8.6 mg PO HS [facility] Stop: 04/01/18 20:59 Last Admin: 02/04/18 20:49 Dose: 8.6 mg Tolterodine Tartrate (Detrol) 2 mg PO BID [facility] Stop: 04/02/18 08:59 Last Admin: 02/05/18 16:13 Dose: 2 mg Zolpidem Tartrate (Ambien) 5 mg PO HS PRN PRN Reason: Insomnia Stop: 04/01/18 16:55 Last Admin: 02/03/18 20:48 Dose: 5 mg General: No acute distress HEENT: Atraumatic, PERRLA, EOMI Neck: Supple, JVD, Thyromegaly Cardiovascular: Regular rate, Normal S1, Normal S2 Lungs: Clear to auscultation Abdomen: Bowel sounds, Soft Assessment/Plan - Assessment Assessment: 1.UTI. 2.SEIZURE DISORDERED. 3.HYPOTHYROIDISM. 4.DEMENTIA. - Plan Plan: continue current treatment
--- NOTE | 2018-02-05 21:18 | Progress Notes ---
DATE: 02/04/2018 SUBJECTIVE: The patient was seen and evaluated. The patient's chart reviewed. This is psychiatric followup note covering for Dr. Licona on date 02/04/2018. The patient is a 62-year-old female who was initially brought in here for agitated behavior and hostile behavior for x 3 days. She is a 62-year-old female who presented with bizarre behavior due to agitation, hostile behavior to other people, reported that the year was 1927 and the month was April. Today on [id number] evaluation, the patient reports she is here waiting for a mail. ____ discussed more in the conversation, the patient becomes more disorganized and ____ conversation. She denies any side effects of medication. MENTAL STATUS EXAMINATION: Still disheveled, disorganized, very difficult to understand in regards to what she is trying to stay. ASSESSMENT AND PLAN: The patient continues to be nonsensical and disorganized. Unable to make much of a linear conversation as she continues to remain disorganized and delusional with bizarre ideations. We will continue with Seroquel to target the patient's ongoing symptoms including with the Cogentin 2 mg p.o. b.i.d., Tegretol, Cipro, Depakote, Keppra, and Synthroid. JOB# [id number]
[2018-02-06] MEDS: Levothyroxine 0.075 Mg Tab PO SCH (06:48)
[2018-02-06] MEDS: Lactobacillus Rhamnosus GG 15 Billion CFU CAP.SPRINK PO SCH ×2 (09:42→17:00)
[2018-02-06] MEDS: Benztropine 1 MG TAB PO SCH ×3 (09:42→16:57)
[2018-02-06] MEDS: Multivitamin Tab PO SCH ×2 (09:43→17:00)
--- NOTE | 2018-02-06 11:00 | Progress Notes ---
DATE: The patient was seen and evaluated. The patient's chart reviewed. Today on [id number] evaluation, upon approach the patient intermittently screams, nonsensical comments and then redirects her attention to the music and then becomes easily agitated and disorganized. MENTAL STATUS EXAMINATION: Disorganized, delusional. ASSESSMENT AND PLAN: The patient is a 62-year-old female who continues to present distraught by the delusions and disorganized thought process. We will continue with the current medication treatment plan and goals to target the patient's symptoms as noted above, which includes Seroquel for her psychosis. [facility]# [id number]
[2018-02-06] MEDS ORDERED: Haloperidol Lactate 5 mg/mL 1mL Vial ONE (11:59)
[2018-02-06] MEDS ORDERED: Haloperidol Lactate 5 mg/mL 1mL Vial IM ONE (12:15)
--- NOTE | 2018-02-06 18:26 | Progress Notes ---
DATE: 02/06/2018 SUBJECTIVE: The patient brought in, agitation, hostile behavior, is bizarre, psychotic. States that she has never seen me before and therefore does not want to talk to me, essentially refusing interview, disheveled, unkempt, poor dentition, bizarre ideations. Staff noting she remains symptomatic, psychotic, unpredictable, paranoid, mumbling to self. ASSESSMENT: The patient remains symptomatic, bizarre, remains impulsive, highly unpredictable. PLAN: We will continue to monitor. We will titrate and adjust medications. Continue to monitor on an inpatient basis given her ongoing psychotic. JOB# [id number]
--- NOTE | 2018-02-06 19:46 | Internal Medicine Prog Note ---
Internal Medicine Subjective - Subjective Service Date: 02/06/18 Patient seen and examined:: with staff Patient is:: awake, non-verbal, in bed, confused Per staff patient has:: no adverse event Internal Medicine Objective - Results Result Diagrams: 01/31/18 13:30 01/31/18 13:30 Recent Labs: Laboratory Last Values WBC 5.2 Th/cmm (4.8-10.8) 01/31/18 13:30 RBC 3.70 Mil/cmm (3.80-5.10) L 01/31/18 13:30 Hgb 12.0 gm/dL (12-16) 01/31/18 13:30 Hct 35.2 % (41.0-60) L 01/31/18 13:30 MCV 95.0 fl (81-100) 01/31/18 13:30 MCH 32.5 pg (27.0-31.0) H 01/31/18 13:30 MCHC Differential 34.2 pg (28.0-36.0) 01/31/18 13:30 RDW 13.1 % (11.5-20.0) 01/31/18 13:30 Plt Count 202 Th/cmm (150-400) 01/31/18 13:30 MPV 6.7 fl 01/31/18 13:30 Neutrophils % 57.8 % (40.0-80.0) 01/31/18 13:30 Lymphocytes % 31.5 % (20.0-50.0) 01/31/18 13:30 Monocytes % 8.7 % (2.0-10.0) 01/31/18 13:30 Eosinophils % 1.1 % (0.0-5.0) 01/31/18 13:30 Basophils % 0.9 % (0.0-2.0) 01/31/18 13:30 Sodium 137 mEq/L (136-145) 01/31/18 13:30 Potassium 4.1 mEq/L (3.5-5.1) 01/31/18 13:30 Chloride 104 mEq/L (98-107) 01/31/18 13:30 Carbon Dioxide 28.3 mEq/L (21.0-31.0) 01/31/18 13:30 Anion Gap 8.8 (7.0-16.0) 01/31/18 13:30 BUN 25 mg/dL (7-25) 01/31/18 13:30 Creatinine 1.1 mg/dL (0.6-1.2) 01/31/18 13:30 Est GFR ( Amer) > 60.0 ml/min (>90) 01/31/18 13:30 Est GFR (Non-Af Amer) 53.7 ml/min 01/31/18 13:30 BUN/Creatinine Ratio 22.7 01/31/18 13:30 Glucose 92 mg/dL (70-105) 01/31/18 13:30 Calcium 9.1 mg/dL (8.6-10.3) 01/31/18 13:30 Total Bilirubin 0.3 mg/dL (0.3-1.0) 01/31/18 13:30 AST 18 U/L (13-39) 01/31/18 13:30 ALT 12 U/L (7-52) 01/31/18 13:30 Alkaline Phosphatase 68 U/L (34-104) 01/31/18 13:30 Troponin I 0.01 ng/mL (0.01-0.05) 01/31/18 13:30 Total Protein 6.6 gm/dL (6.0-8.3) 01/31/18 13:30 Albumin 3.5 gm/dL (3.7-5.3) L 01/31/18 13:30 Globulin 3.1 gm/dL 01/31/18 13:30 Albumin/Globulin Ratio 1.1 (1.0-1.8) 01/31/18 13:30 Triglycerides 111 mg/dL (<150) 01/31/18 13:30 Cholesterol 191 mg/dL (<200) 01/31/18 13:30 LDL Cholesterol Direct 91 mg/dL (75-193) 01/31/18 13:30 HDL Cholesterol 76 mg/dL (23-92) 01/31/18 13:30 TSH 3.99 uIU/ml (0.34-5.60) 01/31/18 13:30 Urine Source CLEAN C 01/31/18 14:00 Urine Color YELLOW 01/31/18 14:00 Urine Clarity HAZY (CLEAR) 01/31/18 14:00 Urine pH 6.0 (4.6 - 8.0) 01/31/18 14:00 Ur Specific [place] 1.010 (1.005-1.030) 01/31/18 14:00 Urine Protein NEGATIVE mg/dL (NEGATIVE) 01/31/18 14:00 Urine Glucose (UA) NEGATIVE mg/dL (NEGATIVE) 01/31/18 14:00 Urine Ketones NEGATIVE mg/dL (NEGATIVE) 01/31/18 14:00 Urine Blood SMALL (NEGATIVE) H 01/31/18 14:00 Urine Nitrate POSITIVE (NEGATIVE) H 01/31/18 14:00 Urine Bilirubin NEGATIVE (NEGATIVE) 01/31/18 14:00 Urine Urobilinogen 0.2 E.U./dL (0.2 - 1.0) 01/31/18 14:00 Ur Leukocyte Esterase MODERATE (NEGATIVE) H 01/31/18 14:00 Urine RBC 2-5 /hpf (0-5) 01/31/18 14:00 Urine WBC 6-10 /hpf (0-5) H 01/31/18 14:00 Ur Epithelial Cells MODERATE /lpf (FEW) 01/31/18 14:00 Urine Bacteria 4+ /hpf (NONE SEEN) H 01/31/18 14:00 Salicylates < 25.0 mg/L (30.0-100.0) L 01/31/18 13:30 Urine Opiates Screen NEGATIVE (NEGATIVE) 01/31/18 14:00 Urine Methadone Screen NEGATIVE (NEGATIVE) 01/31/18 14:00 Acetaminophen < 10.0 ug/mL (10.0-30.0) L 01/31/18 13:30 Ur Barbiturates Screen NEGATIVE (NEGATIVE) 01/31/18 14:00 Ur Tricyclics Screen POSITIVE (NEGATIVE) H 01/31/18 14:00 Ur Phencyclidine Scrn NEGATIVE (NEGATIVE) 01/31/18 14:00 Amphetamines Screen NEGATIVE (NEGATIVE) 01/31/18 14:00 U Methamphetamines Scrn NEGATIVE (NEGATIVE) 01/31/18 14:00 U Benzodiazepines Scrn NEGATIVE (NEGATIVE) 01/31/18 14:00 U Cocaine Metab Screen NEGATIVE (NEGATIVE) 01/31/18 14:00 U Cannabinoids Screen NEGATIVE (NEGATIVE) 01/31/18 14:00 Ethyl Alcohol < 10 mg/dL (0-10) 01/31/18 13:30 - Physical Exam Vitals and I&O: Vital Signs Temp 97.8 F 02/06/18 14:36 Pulse 80 02/06/18 14:36 Resp 18 02/06/18 14:36 BP 148/79 02/06/18 14:36 Pulse Ox 99 02/06/18 14:36 Intake & Output 02/06/18 02/06/18 02/07/18 06:59 18:59 06:59 Intake Total 240 Balance 240 Intake: Oral 240 Other: # Voids 3 2 # Bowel Movements 0 0 Stool Characteristics Soft Soft Formed Formed Active Medications: Current Medications Acetaminophen (Tylenol) 650 mg PO Q4HR PRN PRN Reason: Mild Pain / Temp above 100 Stop: 04/01/18 16:55 Al Hydrox/Mg Hydrox/Simethicone (Maalox) 30 ml PO Q4HR PRN PRN Reason: GI DISTRESS Stop: 04/01/18 16:55 Benztropine Mesylate (Cogentin) 2 mg PO BID [facility] Stop: 04/02/18 08:59 Last Admin: 02/06/18 16:57 Dose: Not Given Carbamazepine (Tegretol) 400 mg PO BID [facility]; Protocol Stop: 04/02/18 08:59 Last Admin: 02/06/18 16:57 Dose: Not Given Ciprofloxacin (Cipro) 250 mg PO BID [facility] Stop: 04/02/18 08:59 Last Admin: 02/06/18 16:58 Dose: Not Given Divalproex Sodium (Depakote Dr) 250 mg PO TID [facility]; Protocol Stop: 04/01/18 20:59 Last Admin: 02/06/18 16:52 Dose: Not Given Docusate Sodium (Colace) 250 mg PO DAILY [facility] Stop: 04/02/18 08:59 Last Admin: 02/06/18 17:00 Dose: Not Given Fludrocortisone Acetate (Florinef) 0.1 mg PO BID [facility] Stop: 04/02/18 08:59 Last Admin: 02/06/18 17:01 Dose: Not Given Lactobacillus Rhamnosus (Culturelle 15b) 1 each PO DAILY [facility] Stop: 04/04/18 08:59 Last Admin: 02/06/18 17:00 Dose: Not Given Levetiracetam (Keppra) 500 mg PO BID [facility] Stop: 04/02/18 08:59 Last Admin: 02/06/18 17:00 Dose: Not Given Levothyroxine Sodium (Synthroid) 0.15 mg PO QDAC [facility] Stop: 04/02/18 07:29 Last Admin: 02/06/18 06:48 Dose: 0.15 mg Lorazepam (Ativan) 0.5 mg PO Q6HR PRN; Protocol PRN Reason: Agitation Stop: 04/01/18 17:03 Last Admin: 02/05/18 20:45 Dose: 0.5 mg Magnesium Hydroxide (Milk Of Magnesia) 30 ml PO HS PRN PRN Reason: Constipation Magnesium Hydroxide (Milk Of Magnesia) 30 ml PO HS PRN PRN Reason: Constipation Stop: 04/01/18 17:46 Miscellaneous (Probiotic Screen) 1 ea MC PRN PRN PRN Reason: PROTOCOL Stop: 04/03/18 12:14 Multivitamins/Vitamin C (Theragran) 1 tab PO DAILY [facility] Stop: 04/02/18 08:59 Last Admin: 02/06/18 17:00 Dose: Not Given Nitrofurantoin Macrocrystals (Macrobid) 100 mg PO BID [facility]; Protocol Stop: 04/01/18 16:59 Last Admin: 02/06/18 17:00 Dose: Not Given Quetiapine Fumarate (Seroquel) 50 mg PO BID [facility]; Protocol Stop: 04/06/18 16:59 Last Admin: 02/06/18 17:00 Dose: Not Given Quetiapine Fumarate 400 mg/ (Quetiapine Fumarate 100 mg) 500 mg PO HS [facility] Stop: 04/07/18 20:59 Senna (Senna) 8.6 mg PO HS [facility] Stop: 04/01/18 20:59 Last Admin: 02/05/18 20:45 Dose: 8.6 mg Tolterodine Tartrate (Detrol) 2 mg PO BID [facility] Stop: 04/02/18 08:59 Last Admin: 02/06/18 17:00 Dose: Not Given Zolpidem Tartrate (Ambien) 5 mg PO HS PRN PRN Reason: Insomnia Stop: 04/01/18 16:55 Last Admin: 02/03/18 20:48 Dose: 5 mg General: weak, demented HEENT: NC/AT, PERRLA, EOMI, anicteric sclerae, throat clear Neck: Supple, No JVD, No thyromegaly, +2 carotid pulse wo bruit, No LAD Lungs: CTAB Cardiovascular: RRR, Normal S1, Normal S2, without murmur Abdomen: soft, non-tender, non-distended Extremities: clear Neurological: no change Internal Medicine Assmt/Plan - Assessment Assessment: 1.UTI. 2.SEIZURE DISORDERED. 3.HYPOTHYROIDISIM. 4.DEMENTIA. - Plan Plan: CONTINUE ON CURRENT MEDICATION AND DIET. Nutritional Asmnt/Malnutr-PDOC - Dietary Evaluation Malnutrition Findings (Please click <Entered> for more info): Nutritional Asmnt/Malnutrition Start: 02/06/18 14: 31 Text: Status: Complete Freq: Protocol: Document 02/06/18 14:32 [email or web address] (Rec: 02/06/18 14:44 [id number] [id number]) Nutritional Asmnt/Malnutrition Patient General Information Nutritional Screening Low Risk Diagnosis psychosis Pertinent Medical Hx/Surgical Hx hypothyroidism, seizure disorder, psychosis, dementia Subjective Information Per EMR, PO intake 100%. Pt tolerated regular diet Current Diet Order/ Nutrition Support regular Pertinent Medications colace, culturelle, synthroid, theragran, seroquel, senna Pertinent Labs 01/31 alb 3.5 Nutritional Hx/Data Height 1.7 m Height (Calculated Centimeters) 170.2 Current Weight (lbs) 63.503 kg Weight (Calculated Kilograms) 63.5 Weight (Calculated Grams) 19486.9 [place] Body Weight 135 Body Mass Index (BMI) 21.9 Weight Status Approriate GI Symptoms GI Symptoms None Last BM 02/05 Difficult in: None Skin Integrity/Comment: intact Current %PO Good (75-100%) Estimated Nutritional Goals BEE in Kcals: Using Current wt Calories/Kcals/Kg 25-30 Kcals Calculated [id number] Protein: Using Current wt Protein g/k Protein Calculated 64 Fluid: ml 1600-1920ml (1m/kcal) Nutritional Problem No current Nutrition Prob Problem N/A Malnutrition Alert Is there a minimum of two criteria No selected? Query Text:Check all the applicable criteria. A minimum of two criteria are recommended for diagnosis of either severe or non-severe malnutrition. Malnutrition Related to Morbid Obesity Malnutrition related to morbid obesity No Intervention/Recommendation Comments 1. Continue with regular diet as ordered. 2. Monitor PO intake, wt, labs and skin integrity 3. F/U as low risk in 7 days, 02/13 Expected Outcomes/Goals Expected Outcomes/Goals 1. PO intake to meet at least 75% of nutritional needs. 2. Wt stability, skin to remain intact, labs to approach WNL.
[2018-02-06] MEDS ORDERED: QUETIAPINE FUMARATE PO SCH (21:00)
[2018-02-07] MEDS: Levothyroxine 0.075 Mg Tab PO SCH (06:32)
[2018-02-07] MEDS: Multivitamin Tab PO SCH (08:36)
[2018-02-07] MEDS: Benztropine 1 MG TAB PO SCH ×2 (08:36→16:43)
[2018-02-07] MEDS: Lactobacillus Rhamnosus GG 15 Billion CFU CAP.SPRINK PO SCH (08:36)
--- NOTE | 2018-02-07 13:30 | Internal Medicine Prog Note ---
Internal Medicine Subjective - Subjective Service Date: 02/07/18 Patient seen and examined:: with staff Patient is:: awake, non-verbal, in bed, confused Per staff patient has:: no adverse event Internal Medicine Objective - Results Result Diagrams: 01/31/18 13:30 01/31/18 13:30 Recent Labs: Laboratory Last Values WBC 5.2 Th/cmm (4.8-10.8) 01/31/18 13:30 RBC 3.70 Mil/cmm (3.80-5.10) L 01/31/18 13:30 Hgb 12.0 gm/dL (12-16) 01/31/18 13:30 Hct 35.2 % (41.0-60) L 01/31/18 13:30 MCV 95.0 fl (81-100) 01/31/18 13:30 MCH 32.5 pg (27.0-31.0) H 01/31/18 13:30 MCHC Differential 34.2 pg (28.0-36.0) 01/31/18 13:30 RDW 13.1 % (11.5-20.0) 01/31/18 13:30 Plt Count 202 Th/cmm (150-400) 01/31/18 13:30 MPV 6.7 fl 01/31/18 13:30 Neutrophils % 57.8 % (40.0-80.0) 01/31/18 13:30 Lymphocytes % 31.5 % (20.0-50.0) 01/31/18 13:30 Monocytes % 8.7 % (2.0-10.0) 01/31/18 13:30 Eosinophils % 1.1 % (0.0-5.0) 01/31/18 13:30 Basophils % 0.9 % (0.0-2.0) 01/31/18 13:30 Sodium 137 mEq/L (136-145) 01/31/18 13:30 Potassium 4.1 mEq/L (3.5-5.1) 01/31/18 13:30 Chloride 104 mEq/L (98-107) 01/31/18 13:30 Carbon Dioxide 28.3 mEq/L (21.0-31.0) 01/31/18 13:30 Anion Gap 8.8 (7.0-16.0) 01/31/18 13:30 BUN 25 mg/dL (7-25) 01/31/18 13:30 Creatinine 1.1 mg/dL (0.6-1.2) 01/31/18 13:30 Est GFR ( Amer) > 60.0 ml/min (>90) 01/31/18 13:30 Est GFR (Non-Af Amer) 53.7 ml/min 01/31/18 13:30 BUN/Creatinine Ratio 22.7 01/31/18 13:30 Glucose 92 mg/dL (70-105) 01/31/18 13:30 Calcium 9.1 mg/dL (8.6-10.3) 01/31/18 13:30 Total Bilirubin 0.3 mg/dL (0.3-1.0) 01/31/18 13:30 AST 18 U/L (13-39) 01/31/18 13:30 ALT 12 U/L (7-52) 01/31/18 13:30 Alkaline Phosphatase 68 U/L (34-104) 01/31/18 13:30 Troponin I 0.01 ng/mL (0.01-0.05) 01/31/18 13:30 Total Protein 6.6 gm/dL (6.0-8.3) 01/31/18 13:30 Albumin 3.5 gm/dL (3.7-5.3) L 01/31/18 13:30 Globulin 3.1 gm/dL 01/31/18 13:30 Albumin/Globulin Ratio 1.1 (1.0-1.8) 01/31/18 13:30 Triglycerides 111 mg/dL (<150) 01/31/18 13:30 Cholesterol 191 mg/dL (<200) 01/31/18 13:30 LDL Cholesterol Direct 91 mg/dL (75-193) 01/31/18 13:30 HDL Cholesterol 76 mg/dL (23-92) 01/31/18 13:30 TSH 3.99 uIU/ml (0.34-5.60) 01/31/18 13:30 Urine Source CLEAN C 01/31/18 14:00 Urine Color YELLOW 01/31/18 14:00 Urine Clarity HAZY (CLEAR) 01/31/18 14:00 Urine pH 6.0 (4.6 - 8.0) 01/31/18 14:00 Ur Specific [place] 1.010 (1.005-1.030) 01/31/18 14:00 Urine Protein NEGATIVE mg/dL (NEGATIVE) 01/31/18 14:00 Urine Glucose (UA) NEGATIVE mg/dL (NEGATIVE) 01/31/18 14:00 Urine Ketones NEGATIVE mg/dL (NEGATIVE) 01/31/18 14:00 Urine Blood SMALL (NEGATIVE) H 01/31/18 14:00 Urine Nitrate POSITIVE (NEGATIVE) H 01/31/18 14:00 Urine Bilirubin NEGATIVE (NEGATIVE) 01/31/18 14:00 Urine Urobilinogen 0.2 E.U./dL (0.2 - 1.0) 01/31/18 14:00 Ur Leukocyte Esterase MODERATE (NEGATIVE) H 01/31/18 14:00 Urine RBC 2-5 /hpf (0-5) 01/31/18 14:00 Urine WBC 6-10 /hpf (0-5) H 01/31/18 14:00 Ur Epithelial Cells MODERATE /lpf (FEW) 01/31/18 14:00 Urine Bacteria 4+ /hpf (NONE SEEN) H 01/31/18 14:00 Salicylates < 25.0 mg/L (30.0-100.0) L 01/31/18 13:30 Urine Opiates Screen NEGATIVE (NEGATIVE) 01/31/18 14:00 Urine Methadone Screen NEGATIVE (NEGATIVE) 01/31/18 14:00 Acetaminophen < 10.0 ug/mL (10.0-30.0) L 01/31/18 13:30 Ur Barbiturates Screen NEGATIVE (NEGATIVE) 01/31/18 14:00 Ur Tricyclics Screen POSITIVE (NEGATIVE) H 01/31/18 14:00 Ur Phencyclidine Scrn NEGATIVE (NEGATIVE) 01/31/18 14:00 Amphetamines Screen NEGATIVE (NEGATIVE) 01/31/18 14:00 U Methamphetamines Scrn NEGATIVE (NEGATIVE) 01/31/18 14:00 U Benzodiazepines Scrn NEGATIVE (NEGATIVE) 01/31/18 14:00 U Cocaine Metab Screen NEGATIVE (NEGATIVE) 01/31/18 14:00 U Cannabinoids Screen NEGATIVE (NEGATIVE) 01/31/18 14:00 Ethyl Alcohol < 10 mg/dL (0-10) 01/31/18 13:30 - Physical Exam Vitals and I&O: Vital Signs Temp 0 F 02/07/18 06:14 Pulse 80 02/06/18 14:36 Resp 20 02/06/18 19:57 BP 148/79 02/06/18 14:36 Pulse Ox 99 02/06/18 14:36 Intake & Output 02/06/18 02/07/18 02/07/18 18:59 06:59 18:59 Intake Total 120 Balance 120 Intake: Oral 120 Other: # Voids 2 3 # Bowel Movements 0 0 Stool Characteristics Soft Soft Formed Formed Active Medications: Current Medications Acetaminophen (Tylenol) 650 mg PO Q4HR PRN PRN Reason: Mild Pain / Temp above 100 Stop: 04/01/18 16:55 Al Hydrox/Mg Hydrox/Simethicone (Maalox) 30 ml PO Q4HR PRN PRN Reason: GI DISTRESS Stop: 04/01/18 16:55 Benztropine Mesylate (Cogentin) 2 mg PO BID [facility] Stop: 04/02/18 08:59 Last Admin: 02/07/18 08:36 Dose: 2 mg Carbamazepine (Tegretol) 400 mg PO BID [facility]; Protocol Stop: 04/02/18 08:59 Last Admin: 02/07/18 08:36 Dose: 400 mg Ciprofloxacin (Cipro) 250 mg PO BID [facility] Stop: 04/02/18 08:59 Last Admin: 02/07/18 08:36 Dose: 250 mg Divalproex Sodium (Depakote Dr) 250 mg PO TID [facility]; Protocol Stop: 04/01/18 20:59 Last Admin: 02/07/18 08:35 Dose: 250 mg Docusate Sodium (Colace) 250 mg PO DAILY [facility] Stop: 04/02/18 08:59 Last Admin: 02/07/18 08:35 Dose: 250 mg Fludrocortisone Acetate (Florinef) 0.1 mg PO BID [facility] Stop: 04/02/18 08:59 Last Admin: 02/07/18 08:40 Dose: 0.1 mg Lactobacillus Rhamnosus (Culturelle 15b) 1 each PO DAILY [facility] Stop: 04/04/18 08:59 Last Admin: 02/07/18 08:36 Dose: 1 each Levetiracetam (Keppra) 500 mg PO BID [facility] Stop: 04/02/18 08:59 Last Admin: 02/07/18 08:37 Dose: 500 mg Levothyroxine Sodium (Synthroid) 0.15 mg PO QDAC [facility] Stop: 04/02/18 07:29 Last Admin: 02/07/18 06:32 Dose: Not Given Lorazepam (Ativan) 0.5 mg PO Q6HR PRN; Protocol PRN Reason: Agitation Stop: 04/01/18 17:03 Last Admin: 02/05/18 20:45 Dose: 0.5 mg Magnesium Hydroxide (Milk Of Magnesia) 30 ml PO HS PRN PRN Reason: Constipation Magnesium Hydroxide (Milk Of Magnesia) 30 ml PO HS PRN PRN Reason: Constipation Stop: 04/01/18 17:46 Miscellaneous (Probiotic Screen) 1 ea MC PRN PRN PRN Reason: PROTOCOL Stop: 04/03/18 12:14 Multivitamins/Vitamin C (Theragran) 1 tab PO DAILY [facility] Stop: 04/02/18 08:59 Last Admin: 02/07/18 08:36 Dose: 1 tab Nitrofurantoin Macrocrystals (Macrobid) 100 mg PO BID [facility]; Protocol Stop: 04/01/18 16:59 Last Admin: 02/07/18 08:35 Dose: 100 mg Quetiapine Fumarate (Seroquel) 50 mg PO BID [facility]; Protocol Stop: 04/06/18 16:59 Last Admin: 02/07/18 08:40 Dose: 50 mg Quetiapine Fumarate (Seroquel) 600 mg PO HS [facility] Stop: 04/08/18 20:59 Senna (Senna) 8.6 mg PO HS [facility] Stop: 04/01/18 20:59 Last Admin: 02/06/18 21:00 Dose: Not Given Tolterodine Tartrate (Detrol) 2 mg PO BID [facility] Stop: 04/02/18 08:59 Last Admin: 02/07/18 08:40 Dose: 2 mg Zolpidem Tartrate (Ambien) 5 mg PO HS PRN PRN Reason: Insomnia Stop: 04/01/18 16:55 Last Admin: 02/03/18 20:48 Dose: 5 mg General: weak, demented HEENT: NC/AT, PERRLA, EOMI, anicteric sclerae, throat clear Neck: Supple, No JVD, No thyromegaly, +2 carotid pulse wo bruit, No LAD Lungs: CTAB Cardiovascular: RRR, Normal S1, Normal S2, without murmur Abdomen: soft, non-tender, non-distended Extremities: clear Neurological: no change Internal Medicine Assmt/Plan - Assessment Assessment: 1.UTI. 2.SEIZURE DISORDERED. 3.HYPOTHYROIDISIM. 4.DEMENTIA. - Plan Plan: CONTINUE ON CURRENT MEDICATION AND DIET. Nutritional Asmnt/Malnutr-PDOC - Dietary Evaluation Malnutrition Findings (Please click <Entered> for more info): Nutritional Asmnt/Malnutrition Start: 02/06/18 14: 31 Text: Status: Complete Freq: Protocol: Document 02/06/18 14:32 [email or web address] (Rec: 02/06/18 14:44 [email or web address]) Nutritional Asmnt/Malnutrition Patient General Information Nutritional Screening Low Risk Diagnosis psychosis Pertinent Medical Hx/Surgical Hx hypothyroidism, seizure disorder, psychosis, dementia Subjective Information Per EMR, PO intake 100%. Pt tolerated regular diet Current Diet Order/ Nutrition Support regular Pertinent Medications colace, culturelle, synthroid, theragran, seroquel, senna Pertinent Labs 01/31 alb 3.5 Nutritional Hx/Data Height 1.7 m Height (Calculated Centimeters) 170.2 Current Weight (lbs) 63.503 kg Weight (Calculated Kilograms) 63.5 Weight (Calculated Grams) 85261.9 [place] Body Weight 135 Body Mass Index (BMI) 21.9 Weight Status Approriate GI Symptoms GI Symptoms None Last BM 02/05 Difficult in: None Skin Integrity/Comment: intact Current %PO Good (75-100%) Estimated Nutritional Goals BEE in Kcals: Using Current wt Calories/Kcals/Kg 25-30 Kcals Calculated 2162-4390 Protein: Using Current wt Protein g/k Protein Calculated 64 Fluid: ml 1600-1920ml (1m/kcal) Nutritional Problem No current Nutrition Prob Problem N/A Malnutrition Alert Is there a minimum of two criteria No selected? Query Text:Check all the applicable criteria. A minimum of two criteria are recommended for diagnosis of either severe or non-severe malnutrition. Malnutrition Related to Morbid Obesity Malnutrition related to morbid obesity No Intervention/Recommendation Comments 1. Continue with regular diet as ordered. 2. Monitor PO intake, wt, labs and skin integrity 3. F/U as low risk in 7 days, 02/13 Expected Outcomes/Goals Expected Outcomes/Goals 1. PO intake to meet at least 75% of nutritional needs. 2. Wt stability, skin to remain intact, labs to approach WNL.
--- NOTE | 2018-02-08 02:34 | Progress Notes ---
DATE: 02/07/2018 SUBJECTIVE: The patient is preoccupied, seen today on 02/07/2018, confused, preoccupied, stating her name is Epifanio, required emergency medications yesterday, aggressive, agitated, trying to touch the staff members inappropriately irritated, aggressive, threatening, swinging, got Haldol cocktail yesterday. ASSESSMENT: The patient is bizarre, psychotic, not safe for a lower level of care. PLAN: I will increase her dosing of Seroquel today. She remains quite dangerous, aggressive, and violent. Medications were reviewed. JOB# [id number]
[2018-02-08] MEDS: Levothyroxine 0.075 Mg Tab PO SCH (06:29)
[2018-02-08] MEDS: Benztropine 1 MG TAB PO SCH ×2 (08:52→17:20)
[2018-02-08] MEDS: Multivitamin Tab PO SCH (08:52)
[2018-02-08] MEDS: Lactobacillus Rhamnosus GG 15 Billion CFU CAP.SPRINK PO SCH (08:54)
--- NOTE | 2018-02-08 22:01 | Progress Notes ---
DATE: 02/08/2018 SUBJECTIVE: The patient preoccupied. When I asked her how she is doing, she states it is none of your business and "get out," very suspicious, intense gaze, psychotic gaze, threatening, aggressive behaviors over the past couple of days, bizarre, internally preoccupied, clearly psychotic, but confused, bizarre, suspicious, saying some bizarre things, slept fairly well last night. ASSESSMENT: The patient has poor ADLs. Very poor dentition, expletives towards staff, behavioral outbursts, refusing to speak with me, threatening towards staff, highly impulsive and unpredictable. Recent dose increase his medications, still remains psychotic. We will continue to monitor and titrate medications. JOB# [id number]
--- NOTE | 2018-02-08 22:37 | Internal Medicine Prog Note ---
Internal Medicine Subjective - Subjective Service Date: 02/08/18 Patient seen and examined:: with staff Patient is:: awake, non-verbal, in bed, confused Per staff patient has:: no adverse event Internal Medicine Objective - Results Result Diagrams: 01/31/18 13:30 01/31/18 13:30 Recent Labs: Laboratory Last Values WBC 5.2 Th/cmm (4.8-10.8) 01/31/18 13:30 RBC 3.70 Mil/cmm (3.80-5.10) L 01/31/18 13:30 Hgb 12.0 gm/dL (12-16) 01/31/18 13:30 Hct 35.2 % (41.0-60) L 01/31/18 13:30 MCV 95.0 fl (81-100) 01/31/18 13:30 MCH 32.5 pg (27.0-31.0) H 01/31/18 13:30 MCHC Differential 34.2 pg (28.0-36.0) 01/31/18 13:30 RDW 13.1 % (11.5-20.0) 01/31/18 13:30 Plt Count 202 Th/cmm (150-400) 01/31/18 13:30 MPV 6.7 fl 01/31/18 13:30 Neutrophils % 57.8 % (40.0-80.0) 01/31/18 13:30 Lymphocytes % 31.5 % (20.0-50.0) 01/31/18 13:30 Monocytes % 8.7 % (2.0-10.0) 01/31/18 13:30 Eosinophils % 1.1 % (0.0-5.0) 01/31/18 13:30 Basophils % 0.9 % (0.0-2.0) 01/31/18 13:30 Sodium 137 mEq/L (136-145) 01/31/18 13:30 Potassium 4.1 mEq/L (3.5-5.1) 01/31/18 13:30 Chloride 104 mEq/L (98-107) 01/31/18 13:30 Carbon Dioxide 28.3 mEq/L (21.0-31.0) 01/31/18 13:30 Anion Gap 8.8 (7.0-16.0) 01/31/18 13:30 BUN 25 mg/dL (7-25) 01/31/18 13:30 Creatinine 1.1 mg/dL (0.6-1.2) 01/31/18 13:30 Est GFR ( Amer) > 60.0 ml/min (>90) 01/31/18 13:30 Est GFR (Non-Af Amer) 53.7 ml/min 01/31/18 13:30 BUN/Creatinine Ratio 22.7 01/31/18 13:30 Glucose 92 mg/dL (70-105) 01/31/18 13:30 Calcium 9.1 mg/dL (8.6-10.3) 01/31/18 13:30 Total Bilirubin 0.3 mg/dL (0.3-1.0) 01/31/18 13:30 AST 18 U/L (13-39) 01/31/18 13:30 ALT 12 U/L (7-52) 01/31/18 13:30 Alkaline Phosphatase 68 U/L (34-104) 01/31/18 13:30 Troponin I 0.01 ng/mL (0.01-0.05) 01/31/18 13:30 Total Protein 6.6 gm/dL (6.0-8.3) 01/31/18 13:30 Albumin 3.5 gm/dL (3.7-5.3) L 01/31/18 13:30 Globulin 3.1 gm/dL 01/31/18 13:30 Albumin/Globulin Ratio 1.1 (1.0-1.8) 01/31/18 13:30 Triglycerides 111 mg/dL (<150) 01/31/18 13:30 Cholesterol 191 mg/dL (<200) 01/31/18 13:30 LDL Cholesterol Direct 91 mg/dL (75-193) 01/31/18 13:30 HDL Cholesterol 76 mg/dL (23-92) 01/31/18 13:30 TSH 3.99 uIU/ml (0.34-5.60) 01/31/18 13:30 Urine Source CLEAN C 01/31/18 14:00 Urine Color YELLOW 01/31/18 14:00 Urine Clarity HAZY (CLEAR) 01/31/18 14:00 Urine pH 6.0 (4.6 - 8.0) 01/31/18 14:00 Ur Specific [place] 1.010 (1.005-1.030) 01/31/18 14:00 Urine Protein NEGATIVE mg/dL (NEGATIVE) 01/31/18 14:00 Urine Glucose (UA) NEGATIVE mg/dL (NEGATIVE) 01/31/18 14:00 Urine Ketones NEGATIVE mg/dL (NEGATIVE) 01/31/18 14:00 Urine Blood SMALL (NEGATIVE) H 01/31/18 14:00 Urine Nitrate POSITIVE (NEGATIVE) H 01/31/18 14:00 Urine Bilirubin NEGATIVE (NEGATIVE) 01/31/18 14:00 Urine Urobilinogen 0.2 E.U./dL (0.2 - 1.0) 01/31/18 14:00 Ur Leukocyte Esterase MODERATE (NEGATIVE) H 01/31/18 14:00 Urine RBC 2-5 /hpf (0-5) 01/31/18 14:00 Urine WBC 6-10 /hpf (0-5) H 01/31/18 14:00 Ur Epithelial Cells MODERATE /lpf (FEW) 01/31/18 14:00 Urine Bacteria 4+ /hpf (NONE SEEN) H 01/31/18 14:00 Salicylates < 25.0 mg/L (30.0-100.0) L 01/31/18 13:30 Urine Opiates Screen NEGATIVE (NEGATIVE) 01/31/18 14:00 Urine Methadone Screen NEGATIVE (NEGATIVE) 01/31/18 14:00 Acetaminophen < 10.0 ug/mL (10.0-30.0) L 01/31/18 13:30 Ur Barbiturates Screen NEGATIVE (NEGATIVE) 01/31/18 14:00 Ur Tricyclics Screen POSITIVE (NEGATIVE) H 01/31/18 14:00 Ur Phencyclidine Scrn NEGATIVE (NEGATIVE) 01/31/18 14:00 Amphetamines Screen NEGATIVE (NEGATIVE) 01/31/18 14:00 U Methamphetamines Scrn NEGATIVE (NEGATIVE) 01/31/18 14:00 U Benzodiazepines Scrn NEGATIVE (NEGATIVE) 01/31/18 14:00 U Cocaine Metab Screen NEGATIVE (NEGATIVE) 01/31/18 14:00 U Cannabinoids Screen NEGATIVE (NEGATIVE) 01/31/18 14:00 Ethyl Alcohol < 10 mg/dL (0-10) 01/31/18 13:30 RPR NONREACTIVE (NONREACTIVE) 01/31/18 13:30 - Physical Exam Vitals and I&O: Vital Signs Temp 98.2 F 02/08/18 20:00 Pulse 67 02/08/18 20:00 Resp 18 02/08/18 20:00 BP 142/86 02/08/18 20:00 Pulse Ox 98 02/08/18 20:00 Intake & Output 02/08/18 02/08/18 02/09/18 06:59 18:59 06:59 Intake Total 120 1200 Balance 120 1200 Intake: Oral 120 1200 Other: # Voids 3 # Bowel Movements 1 Stool Characteristics Soft Soft Soft Formed Formed Formed Active Medications: Current Medications Acetaminophen (Tylenol) 650 mg PO Q4HR PRN PRN Reason: Mild Pain / Temp above 100 Stop: 04/01/18 16:55 Al Hydrox/Mg Hydrox/Simethicone (Maalox) 30 ml PO Q4HR PRN PRN Reason: GI DISTRESS Stop: 04/01/18 16:55 Benztropine Mesylate (Cogentin) 2 mg PO BID [facility] Stop: 04/02/18 08:59 Last Admin: 02/08/18 17:20 Dose: 2 mg Carbamazepine (Tegretol) 400 mg PO BID [facility]; Protocol Stop: 04/02/18 08:59 Last Admin: 02/08/18 17:20 Dose: 400 mg Ciprofloxacin (Cipro) 250 mg PO BID [facility] Stop: 04/02/18 08:59 Last Admin: 02/08/18 17:20 Dose: 250 mg Divalproex Sodium (Depakote Dr) 250 mg PO TID [facility]; Protocol Stop: 04/01/18 20:59 Last Admin: 02/08/18 20:31 Dose: 250 mg Docusate Sodium (Colace) 250 mg PO DAILY [facility] Stop: 04/02/18 08:59 Last Admin: 02/08/18 08:53 Dose: 250 mg Fludrocortisone Acetate (Florinef) 0.1 mg PO BID [facility] Stop: 04/02/18 08:59 Last Admin: 02/08/18 08:54 Dose: 0.1 mg Lactobacillus Rhamnosus (Culturelle 15b) 1 each PO DAILY [facility] Stop: 04/04/18 08:59 Last Admin: 02/08/18 08:54 Dose: 1 each Levetiracetam (Keppra) 500 mg PO BID [facility] Stop: 04/02/18 08:59 Last Admin: 02/08/18 17:20 Dose: 500 mg Levothyroxine Sodium (Synthroid) 0.15 mg PO QDAC [facility] Stop: 04/02/18 07:29 Last Admin: 02/08/18 06:29 Dose: 0.15 mg Lorazepam (Ativan) 0.5 mg PO Q6HR PRN; Protocol PRN Reason: Agitation Stop: 04/01/18 17:03 Last Admin: 02/08/18 20:31 Dose: 0.5 mg Magnesium Hydroxide (Milk Of Magnesia) 30 ml PO HS PRN PRN Reason: Constipation Magnesium Hydroxide (Milk Of Magnesia) 30 ml PO HS PRN PRN Reason: Constipation Stop: 04/01/18 17:46 Miscellaneous (Probiotic Screen) 1 ea MC PRN PRN PRN Reason: PROTOCOL Stop: 04/03/18 12:14 Multivitamins/Vitamin C (Theragran) 1 tab PO DAILY [facility] Stop: 04/02/18 08:59 Last Admin: 02/08/18 08:52 Dose: 1 tab Nitrofurantoin Macrocrystals (Macrobid) 100 mg PO BID [facility]; Protocol Stop: 04/01/18 16:59 Last Admin: 02/08/18 17:20 Dose: 100 mg Quetiapine Fumarate (Seroquel) 50 mg PO BID [facility]; Protocol Stop: 04/06/18 16:59 Last Admin: 02/08/18 17:20 Dose: 50 mg Quetiapine Fumarate (Seroquel) 600 mg PO HS [facility] Stop: 04/08/18 20:59 Last Admin: 02/08/18 20:31 Dose: 600 mg Senna (Senna) 8.6 mg PO HS [facility] Stop: 04/01/18 20:59 Last Admin: 02/08/18 20:31 Dose: 8.6 mg Tolterodine Tartrate (Detrol) 2 mg PO BID [facility] Stop: 04/02/18 08:59 Last Admin: 02/08/18 17:21 Dose: 2 mg Zolpidem Tartrate (Ambien) 5 mg PO HS PRN PRN Reason: Insomnia Stop: 04/01/18 16:55 Last Admin: 02/03/18 20:48 Dose: 5 mg General: weak, demented HEENT: NC/AT, PERRLA, EOMI, anicteric sclerae, throat clear Neck: Supple, No JVD, No thyromegaly, +2 carotid pulse wo bruit, No LAD Lungs: CTAB Cardiovascular: RRR, Normal S1, Normal S2, without murmur Abdomen: soft, non-tender, non-distended Extremities: clear Neurological: no change Internal Medicine Assmt/Plan - Assessment Assessment: 1.SEIZURE DISORDERED. 2.HYPOTHYROIDISIM. 3.DEMENTIA. - Plan Plan: CONTINUE ON CURRENT MEDICATION AND DIET. Nutritional Asmnt/Malnutr-PDOC - Dietary Evaluation Malnutrition Findings (Please click <Entered> for more info): Nutritional Asmnt/Malnutrition Start: 02/06/18 14: 31 Text: Status: Complete Freq: Protocol: Document 02/06/18 14:32 [email or web address] (Rec: 02/06/18 14:44 [email or web address]) Nutritional Asmnt/Malnutrition Patient General Information Nutritional Screening Low Risk Diagnosis psychosis Pertinent Medical Hx/Surgical Hx hypothyroidism, seizure disorder, psychosis, dementia Subjective Information Per EMR, PO intake 100%. Pt tolerated regular diet Current Diet Order/ Nutrition Support regular Pertinent Medications colace, culturelle, synthroid, theragran, seroquel, senna Pertinent Labs 01/31 alb 3.5 Nutritional Hx/Data Height 1.7 m Height (Calculated Centimeters) 170.2 Current Weight (lbs) 63.503 kg Weight (Calculated Kilograms) 63.5 Weight (Calculated Grams) 35796.9 [place] Body Weight 135 Body Mass Index (BMI) 21.9 Weight Status Approriate GI Symptoms GI Symptoms None Last BM 02/05 Difficult in: None Skin Integrity/Comment: intact Current %PO Good (75-100%) Estimated Nutritional Goals BEE in Kcals: Using Current wt Calories/Kcals/Kg 25-30 Kcals Calculated 3409-1112 Protein: Using Current wt Protein g/k Protein Calculated 64 Fluid: ml 1600-1920ml (1m/kcal) Nutritional Problem No current Nutrition Prob Problem N/A Malnutrition Alert Is there a minimum of two criteria No selected? Query Text:Check all the applicable criteria. A minimum of two criteria are recommended for diagnosis of either severe or non-severe malnutrition. Malnutrition Related to Morbid Obesity Malnutrition related to morbid obesity No Intervention/Recommendation Comments 1. Continue with regular diet as ordered. 2. Monitor PO intake, wt, labs and skin integrity 3. F/U as low risk in 7 days, 02/13 Expected Outcomes/Goals Expected Outcomes/Goals 1. PO intake to meet at least 75% of nutritional needs. 2. Wt stability, skin to remain intact, labs to approach WNL.
[2018-02-09] MEDS: Levothyroxine 0.075 Mg Tab PO SCH (06:34)
[2018-02-09] MEDS: Multivitamin Tab PO SCH (08:44)
[2018-02-09] MEDS: Benztropine 1 MG TAB PO SCH ×2 (08:49→16:42)
[2018-02-09] MEDS: Lactobacillus Rhamnosus GG 15 Billion CFU CAP.SPRINK PO SCH (08:49)
--- NOTE | 2018-02-09 16:03 | Progress Notes ---
DATE: 02/09/2018 SUBJECTIVE: The patient is very bizarre, agitated, confused, forgetful, stating this is the first time I am seeing her _although i have been seeing her___ here every day. She generally turns me away, states some bizarre things. The patient states that [place] the [place], not making any sense when I asked her where she is going to go or where she is going to live or how she is going to get there, paranoid, easily agitated, cursing at staff. MEDICATIONS: Reviewed. ASSESSMENT: The patient is psychotic, bizarre, ongoing concerns about her ability to attend to her basic needs. Currently, the patient is taking Tegretol, Depakote, Seroquel. PLAN: We will continue to monitor, titrate and adjust medications. JOB# [id number] [email or web address]
--- NOTE | 2018-02-09 23:39 | Internal Medicine Prog Note ---
Internal Medicine Subjective - Subjective Service Date: 02/09/18 Patient is:: awake, non-verbal, in bed, confused Per staff patient has:: no adverse event Internal Medicine Objective - Results Result Diagrams: 01/31/18 13:30 01/31/18 13:30 Recent Labs: Laboratory Last Values WBC 5.2 Th/cmm (4.8-10.8) 01/31/18 13:30 RBC 3.70 Mil/cmm (3.80-5.10) L 01/31/18 13:30 Hgb 12.0 gm/dL (12-16) 01/31/18 13:30 Hct 35.2 % (41.0-60) L 01/31/18 13:30 MCV 95.0 fl (81-100) 01/31/18 13:30 MCH 32.5 pg (27.0-31.0) H 01/31/18 13:30 MCHC Differential 34.2 pg (28.0-36.0) 01/31/18 13:30 RDW 13.1 % (11.5-20.0) 01/31/18 13:30 Plt Count 202 Th/cmm (150-400) 01/31/18 13:30 MPV 6.7 fl 01/31/18 13:30 Neutrophils % 57.8 % (40.0-80.0) 01/31/18 13:30 Lymphocytes % 31.5 % (20.0-50.0) 01/31/18 13:30 Monocytes % 8.7 % (2.0-10.0) 01/31/18 13:30 Eosinophils % 1.1 % (0.0-5.0) 01/31/18 13:30 Basophils % 0.9 % (0.0-2.0) 01/31/18 13:30 Sodium 137 mEq/L (136-145) 01/31/18 13:30 Potassium 4.1 mEq/L (3.5-5.1) 01/31/18 13:30 Chloride 104 mEq/L (98-107) 01/31/18 13:30 Carbon Dioxide 28.3 mEq/L (21.0-31.0) 01/31/18 13:30 Anion Gap 8.8 (7.0-16.0) 01/31/18 13:30 BUN 25 mg/dL (7-25) 01/31/18 13:30 Creatinine 1.1 mg/dL (0.6-1.2) 01/31/18 13:30 Est GFR ( Amer) > 60.0 ml/min (>90) 01/31/18 13:30 Est GFR (Non-Af Amer) 53.7 ml/min 01/31/18 13:30 BUN/Creatinine Ratio 22.7 01/31/18 13:30 Glucose 92 mg/dL (70-105) 01/31/18 13:30 Calcium 9.1 mg/dL (8.6-10.3) 01/31/18 13:30 Total Bilirubin 0.3 mg/dL (0.3-1.0) 01/31/18 13:30 AST 18 U/L (13-39) 01/31/18 13:30 ALT 12 U/L (7-52) 01/31/18 13:30 Alkaline Phosphatase 68 U/L (34-104) 01/31/18 13:30 Troponin I 0.01 ng/mL (0.01-0.05) 01/31/18 13:30 Total Protein 6.6 gm/dL (6.0-8.3) 01/31/18 13:30 Albumin 3.5 gm/dL (3.7-5.3) L 01/31/18 13:30 Globulin 3.1 gm/dL 01/31/18 13:30 Albumin/Globulin Ratio 1.1 (1.0-1.8) 01/31/18 13:30 Triglycerides 111 mg/dL (<150) 01/31/18 13:30 Cholesterol 191 mg/dL (<200) 01/31/18 13:30 LDL Cholesterol Direct 91 mg/dL (75-193) 01/31/18 13:30 HDL Cholesterol 76 mg/dL (23-92) 01/31/18 13:30 TSH 3.99 uIU/ml (0.34-5.60) 01/31/18 13:30 Urine Source CLEAN C 01/31/18 14:00 Urine Color YELLOW 01/31/18 14:00 Urine Clarity HAZY (CLEAR) 01/31/18 14:00 Urine pH 6.0 (4.6 - 8.0) 01/31/18 14:00 Ur Specific [place] 1.010 (1.005-1.030) 01/31/18 14:00 Urine Protein NEGATIVE mg/dL (NEGATIVE) 01/31/18 14:00 Urine Glucose (UA) NEGATIVE mg/dL (NEGATIVE) 01/31/18 14:00 Urine Ketones NEGATIVE mg/dL (NEGATIVE) 01/31/18 14:00 Urine Blood SMALL (NEGATIVE) H 01/31/18 14:00 Urine Nitrate POSITIVE (NEGATIVE) H 01/31/18 14:00 Urine Bilirubin NEGATIVE (NEGATIVE) 01/31/18 14:00 Urine Urobilinogen 0.2 E.U./dL (0.2 - 1.0) 01/31/18 14:00 Ur Leukocyte Esterase MODERATE (NEGATIVE) H 01/31/18 14:00 Urine RBC 2-5 /hpf (0-5) 01/31/18 14:00 Urine WBC 6-10 /hpf (0-5) H 01/31/18 14:00 Ur Epithelial Cells MODERATE /lpf (FEW) 01/31/18 14:00 Urine Bacteria 4+ /hpf (NONE SEEN) H 01/31/18 14:00 Salicylates < 25.0 mg/L (30.0-100.0) L 01/31/18 13:30 Urine Opiates Screen NEGATIVE (NEGATIVE) 01/31/18 14:00 Urine Methadone Screen NEGATIVE (NEGATIVE) 01/31/18 14:00 Acetaminophen < 10.0 ug/mL (10.0-30.0) L 01/31/18 13:30 Ur Barbiturates Screen NEGATIVE (NEGATIVE) 01/31/18 14:00 Ur Tricyclics Screen POSITIVE (NEGATIVE) H 01/31/18 14:00 Ur Phencyclidine Scrn NEGATIVE (NEGATIVE) 01/31/18 14:00 Amphetamines Screen NEGATIVE (NEGATIVE) 01/31/18 14:00 U Methamphetamines Scrn NEGATIVE (NEGATIVE) 01/31/18 14:00 U Benzodiazepines Scrn NEGATIVE (NEGATIVE) 01/31/18 14:00 U Cocaine Metab Screen NEGATIVE (NEGATIVE) 01/31/18 14:00 U Cannabinoids Screen NEGATIVE (NEGATIVE) 01/31/18 14:00 Ethyl Alcohol < 10 mg/dL (0-10) 01/31/18 13:30 RPR NONREACTIVE (NONREACTIVE) 01/31/18 13:30 - Physical Exam Vitals and I&O: Vital Signs Temp 97.4 F 02/09/18 14:00 Pulse 83 02/09/18 14:00 Resp 20 02/09/18 14:00 BP 150/78 02/09/18 14:00 Pulse Ox 98 02/09/18 14:00 Intake & Output 02/09/18 02/09/18 02/10/18 06:59 18:59 06:59 Intake Total 120 1200 Balance 120 1200 Intake: Oral 120 1200 Other: # Voids 2 # Bowel Movements 1 Stool Characteristics Soft Soft Formed Formed Active Medications: Current Medications Acetaminophen (Tylenol) 650 mg PO Q4HR PRN PRN Reason: Mild Pain / Temp above 100 Stop: 04/01/18 16:55 Al Hydrox/Mg Hydrox/Simethicone (Maalox) 30 ml PO Q4HR PRN PRN Reason: GI DISTRESS Stop: 04/01/18 16:55 Benztropine Mesylate (Cogentin) 2 mg PO BID [facility] Stop: 04/02/18 08:59 Last Admin: 02/09/18 16:42 Dose: 2 mg Carbamazepine (Tegretol) 400 mg PO BID [facility]; Protocol Stop: 04/02/18 08:59 Last Admin: 02/09/18 16:42 Dose: 400 mg Ciprofloxacin (Cipro) 250 mg PO BID [facility] Stop: 04/02/18 08:59 Last Admin: 02/09/18 16:41 Dose: 250 mg Divalproex Sodium (Depakote Dr) 250 mg PO TID [facility]; Protocol Stop: 04/01/18 20:59 Last Admin: 02/09/18 21:00 Dose: 250 mg Docusate Sodium (Colace) 250 mg PO DAILY [facility] Stop: 04/02/18 08:59 Last Admin: 02/09/18 08:49 Dose: 250 mg Fludrocortisone Acetate (Florinef) 0.1 mg PO BID [facility] Stop: 04/02/18 08:59 Last Admin: 02/09/18 16:43 Dose: 0.1 mg Lactobacillus Rhamnosus (Culturelle 15b) 1 each PO DAILY [facility] Stop: 04/04/18 08:59 Last Admin: 02/09/18 08:49 Dose: 1 each Levetiracetam (Keppra) 500 mg PO BID [facility] Stop: 04/02/18 08:59 Last Admin: 02/09/18 16:42 Dose: 500 mg Levothyroxine Sodium (Synthroid) 0.15 mg PO QDAC [facility] Stop: 04/02/18 07:29 Last Admin: 02/09/18 06:34 Dose: 0.15 mg Lorazepam (Ativan) 0.5 mg PO Q6HR PRN; Protocol PRN Reason: Agitation Stop: 04/01/18 17:03 Last Admin: 02/09/18 21:00 Dose: 0.5 mg Magnesium Hydroxide (Milk Of Magnesia) 30 ml PO HS PRN PRN Reason: Constipation Magnesium Hydroxide (Milk Of Magnesia) 30 ml PO HS PRN PRN Reason: Constipation Stop: 04/01/18 17:46 Miscellaneous (Probiotic Screen) 1 ea MC PRN PRN PRN Reason: PROTOCOL Stop: 04/03/18 12:14 Multivitamins/Vitamin C (Theragran) 1 tab PO DAILY [facility] Stop: 04/02/18 08:59 Last Admin: 02/09/18 08:44 Dose: 1 tab Nitrofurantoin Macrocrystals (Macrobid) 100 mg PO BID [facility]; Protocol Stop: 04/01/18 16:59 Last Admin: 02/09/18 16:42 Dose: 100 mg Quetiapine Fumarate (Seroquel) 50 mg PO BID [facility]; Protocol Stop: 04/06/18 16:59 Last Admin: 02/09/18 16:42 Dose: 50 mg Quetiapine Fumarate (Seroquel) 600 mg PO HS [facility] Stop: 04/08/18 20:59 Last Admin: 02/09/18 21:00 Dose: 600 mg Senna (Senna) 8.6 mg PO HS [facility] Stop: 04/01/18 20:59 Last Admin: 02/09/18 21:00 Dose: 8.6 mg Tolterodine Tartrate (Detrol) 2 mg PO BID [facility] Stop: 04/02/18 08:59 Last Admin: 02/09/18 16:43 Dose: 2 mg Zolpidem Tartrate (Ambien) 5 mg PO HS PRN PRN Reason: Insomnia Stop: 04/01/18 16:55 Last Admin: 02/03/18 20:48 Dose: 5 mg General: weak, demented HEENT: NC/AT, PERRLA, EOMI, anicteric sclerae, throat clear Neck: Supple, No JVD, No thyromegaly, +2 carotid pulse wo bruit, No LAD Lungs: CTAB Cardiovascular: RRR, Normal S1, Normal S2, without murmur Abdomen: soft, non-tender, non-distended Extremities: clear Neurological: no change Internal Medicine Assmt/Plan - Assessment Assessment: 1.SEIZURE DISORDERED. 2.HYPOTHYROIDISIM. 3.DEMENTIA. - Plan Plan: CONTINUE ON CURRENT MEDICATION AND DIET. Nutritional Asmnt/Malnutr-PDOC - Dietary Evaluation Malnutrition Findings (Please click <Entered> for more info): Nutritional Asmnt/Malnutrition Start: 02/06/18 14: 31 Text: Status: Complete Freq: Protocol: Document 02/06/18 14:32 LCHENG (Rec: 02/06/18 14:44 [email or web address]) Nutritional Asmnt/Malnutrition Patient General Information Nutritional Screening Low Risk Diagnosis psychosis Pertinent Medical Hx/Surgical Hx hypothyroidism, seizure disorder, psychosis, dementia Subjective Information Per EMR, PO intake 100%. Pt tolerated regular diet Current Diet Order/ Nutrition Support regular Pertinent Medications colace, culturelle, synthroid, theragran, seroquel, senna Pertinent Labs 01/31 alb 3.5 Nutritional Hx/Data Height 1.7 m Height (Calculated Centimeters) 170.2 Current Weight (lbs) 63.503 kg Weight (Calculated Kilograms) 63.5 Weight (Calculated Grams) 49273.9 [place] Body Weight 135 Body Mass Index (BMI) 21.9 Weight Status Approriate GI Symptoms GI Symptoms None Last BM 02/05 Difficult in: None Skin Integrity/Comment: intact Current %PO Good (75-100%) Estimated Nutritional Goals BEE in Kcals: Using Current wt Calories/Kcals/Kg 25-30 Kcals Calculated 4734-6417 Protein: Using Current wt Protein g/k Protein Calculated 64 Fluid: ml 1600-1920ml (1m/kcal) Nutritional Problem No current Nutrition Prob Problem N/A Malnutrition Alert Is there a minimum of two criteria No selected? Query Text:Check all the applicable criteria. A minimum of two criteria are recommended for diagnosis of either severe or non-severe malnutrition. Malnutrition Related to Morbid Obesity Malnutrition related to morbid obesity No Intervention/Recommendation Comments 1. Continue with regular diet as ordered. 2. Monitor PO intake, wt, labs and skin integrity 3. F/U as low risk in 7 days, 02/13 Expected Outcomes/Goals Expected Outcomes/Goals 1. PO intake to meet at least 75% of nutritional needs. 2. Wt stability, skin to remain intact, labs to approach WNL.
[2018-02-10] MEDS: Levothyroxine 0.075 Mg Tab PO SCH (06:46)
[2018-02-10] MEDS: Benztropine 1 MG TAB PO SCH ×2 (08:44→16:20)
[2018-02-10] MEDS: Lactobacillus Rhamnosus GG 15 Billion CFU CAP.SPRINK PO SCH (08:44)
[2018-02-10] MEDS: Multivitamin Tab PO SCH (08:47)
[2018-02-10] MEDS: QUETIAPINE FUMARATE PO SCH (20:34)
--- NOTE | 2018-02-10 21:33 | Progress Notes ---
DATE: 02/10/2018 SUBJECTIVE: The patient remains easily agitated, throwing water at staff, requiring a higher level of redirection, prompting the patient bizarre, states that she has a place to go and ask her if she has an address her home. She states "I will have a home grandiose on the high dosing of medications, still acting strange, bizarre, still ongoing psychotic symptoms. On Depakote, Tegretol, Seroquel at fairly high doses. ASSESSMENT: The patient remains symptomatic, bizarre. I will be increasing her Seroquel dosing. She remains combative, throwing water at staff, agitated, posturing at times. [facility]# [id number]
--- NOTE | 2018-02-10 22:26 | Internal Medicine Prog Note ---
Internal Medicine Subjective - Subjective Service Date: 02/10/18 Patient seen and examined:: with staff Patient is:: awake, non-verbal, in bed, confused Per staff patient has:: no adverse event Internal Medicine Objective - Results Result Diagrams: 01/31/18 13:30 01/31/18 13:30 Recent Labs: Laboratory Last Values WBC 5.2 Th/cmm (4.8-10.8) 01/31/18 13:30 RBC 3.70 Mil/cmm (3.80-5.10) L 01/31/18 13:30 Hgb 12.0 gm/dL (12-16) 01/31/18 13:30 Hct 35.2 % (41.0-60) L 01/31/18 13:30 MCV 95.0 fl (81-100) 01/31/18 13:30 MCH 32.5 pg (27.0-31.0) H 01/31/18 13:30 MCHC Differential 34.2 pg (28.0-36.0) 01/31/18 13:30 RDW 13.1 % (11.5-20.0) 01/31/18 13:30 Plt Count 202 Th/cmm (150-400) 01/31/18 13:30 MPV 6.7 fl 01/31/18 13:30 Neutrophils % 57.8 % (40.0-80.0) 01/31/18 13:30 Lymphocytes % 31.5 % (20.0-50.0) 01/31/18 13:30 Monocytes % 8.7 % (2.0-10.0) 01/31/18 13:30 Eosinophils % 1.1 % (0.0-5.0) 01/31/18 13:30 Basophils % 0.9 % (0.0-2.0) 01/31/18 13:30 Sodium 137 mEq/L (136-145) 01/31/18 13:30 Potassium 4.1 mEq/L (3.5-5.1) 01/31/18 13:30 Chloride 104 mEq/L (98-107) 01/31/18 13:30 Carbon Dioxide 28.3 mEq/L (21.0-31.0) 01/31/18 13:30 Anion Gap 8.8 (7.0-16.0) 01/31/18 13:30 BUN 25 mg/dL (7-25) 01/31/18 13:30 Creatinine 1.1 mg/dL (0.6-1.2) 01/31/18 13:30 Est GFR ( Amer) > 60.0 ml/min (>90) 01/31/18 13:30 Est GFR (Non-Af Amer) 53.7 ml/min 01/31/18 13:30 BUN/Creatinine Ratio 22.7 01/31/18 13:30 Glucose 92 mg/dL (70-105) 01/31/18 13:30 Calcium 9.1 mg/dL (8.6-10.3) 01/31/18 13:30 Total Bilirubin 0.3 mg/dL (0.3-1.0) 01/31/18 13:30 AST 18 U/L (13-39) 01/31/18 13:30 ALT 12 U/L (7-52) 01/31/18 13:30 Alkaline Phosphatase 68 U/L (34-104) 01/31/18 13:30 Troponin I 0.01 ng/mL (0.01-0.05) 01/31/18 13:30 Total Protein 6.6 gm/dL (6.0-8.3) 01/31/18 13:30 Albumin 3.5 gm/dL (3.7-5.3) L 01/31/18 13:30 Globulin 3.1 gm/dL 01/31/18 13:30 Albumin/Globulin Ratio 1.1 (1.0-1.8) 01/31/18 13:30 Triglycerides 111 mg/dL (<150) 01/31/18 13:30 Cholesterol 191 mg/dL (<200) 01/31/18 13:30 LDL Cholesterol Direct 91 mg/dL (75-193) 01/31/18 13:30 HDL Cholesterol 76 mg/dL (23-92) 01/31/18 13:30 TSH 3.99 uIU/ml (0.34-5.60) 01/31/18 13:30 Urine Source CLEAN C 01/31/18 14:00 Urine Color YELLOW 01/31/18 14:00 Urine Clarity HAZY (CLEAR) 01/31/18 14:00 Urine pH 6.0 (4.6 - 8.0) 01/31/18 14:00 Ur Specific [place] 1.010 (1.005-1.030) 01/31/18 14:00 Urine Protein NEGATIVE mg/dL (NEGATIVE) 01/31/18 14:00 Urine Glucose (UA) NEGATIVE mg/dL (NEGATIVE) 01/31/18 14:00 Urine Ketones NEGATIVE mg/dL (NEGATIVE) 01/31/18 14:00 Urine Blood SMALL (NEGATIVE) H 01/31/18 14:00 Urine Nitrate POSITIVE (NEGATIVE) H 01/31/18 14:00 Urine Bilirubin NEGATIVE (NEGATIVE) 01/31/18 14:00 Urine Urobilinogen 0.2 E.U./dL (0.2 - 1.0) 01/31/18 14:00 Ur Leukocyte Esterase MODERATE (NEGATIVE) H 01/31/18 14:00 Urine RBC 2-5 /hpf (0-5) 01/31/18 14:00 Urine WBC 6-10 /hpf (0-5) H 01/31/18 14:00 Ur Epithelial Cells MODERATE /lpf (FEW) 01/31/18 14:00 Urine Bacteria 4+ /hpf (NONE SEEN) H 01/31/18 14:00 Salicylates < 25.0 mg/L (30.0-100.0) L 01/31/18 13:30 Urine Opiates Screen NEGATIVE (NEGATIVE) 01/31/18 14:00 Urine Methadone Screen NEGATIVE (NEGATIVE) 01/31/18 14:00 Acetaminophen < 10.0 ug/mL (10.0-30.0) L 01/31/18 13:30 Ur Barbiturates Screen NEGATIVE (NEGATIVE) 01/31/18 14:00 Ur Tricyclics Screen POSITIVE (NEGATIVE) H 01/31/18 14:00 Ur Phencyclidine Scrn NEGATIVE (NEGATIVE) 01/31/18 14:00 Amphetamines Screen NEGATIVE (NEGATIVE) 01/31/18 14:00 U Methamphetamines Scrn NEGATIVE (NEGATIVE) 01/31/18 14:00 U Benzodiazepines Scrn NEGATIVE (NEGATIVE) 01/31/18 14:00 U Cocaine Metab Screen NEGATIVE (NEGATIVE) 01/31/18 14:00 U Cannabinoids Screen NEGATIVE (NEGATIVE) 01/31/18 14:00 Ethyl Alcohol < 10 mg/dL (0-10) 01/31/18 13:30 RPR NONREACTIVE (NONREACTIVE) 01/31/18 13:30 - Physical Exam Vitals and I&O: Vital Signs Temp 98.0 F 02/10/18 14:00 Pulse 79 02/10/18 14:00 Resp 19 02/10/18 14:00 BP 135/84 02/10/18 14:00 Pulse Ox 95 02/10/18 14:00 Active Medications: Current Medications Acetaminophen (Tylenol) 650 mg PO Q4HR PRN PRN Reason: Mild Pain / Temp above 100 Stop: 04/01/18 16:55 Al Hydrox/Mg Hydrox/Simethicone (Maalox) 30 ml PO Q4HR PRN PRN Reason: GI DISTRESS Stop: 04/01/18 16:55 Benztropine Mesylate (Cogentin) 2 mg PO BID [facility] Stop: 04/02/18 08:59 Last Admin: 02/10/18 16:20 Dose: 2 mg Carbamazepine (Tegretol) 400 mg PO BID [facility]; Protocol Stop: 04/02/18 08:59 Last Admin: 02/10/18 16:20 Dose: 400 mg Ciprofloxacin (Cipro) 250 mg PO BID [facility] Stop: 04/02/18 08:59 Last Admin: 02/10/18 16:15 Dose: 250 mg Divalproex Sodium (Depakote Dr) 250 mg PO TID [facility]; Protocol Stop: 04/01/18 20:59 Last Admin: 02/10/18 20:34 Dose: 250 mg Docusate Sodium (Colace) 250 mg PO DAILY [facility] Stop: 04/02/18 08:59 Last Admin: 02/10/18 08:46 Dose: 250 mg Fludrocortisone Acetate (Florinef) 0.1 mg PO BID [facility] Stop: 04/02/18 08:59 Last Admin: 02/10/18 16:21 Dose: 0.1 mg Lactobacillus Rhamnosus (Culturelle 15b) 1 each PO DAILY [facility] Stop: 04/04/18 08:59 Last Admin: 02/10/18 08:44 Dose: 1 each Levetiracetam (Keppra) 500 mg PO BID [facility] Stop: 04/02/18 08:59 Last Admin: 02/10/18 16:20 Dose: 500 mg Levothyroxine Sodium (Synthroid) 0.15 mg PO QDAC [facility] Stop: 04/02/18 07:29 Last Admin: 02/10/18 06:46 Dose: 0.15 mg Lorazepam (Ativan) 0.5 mg PO Q6HR PRN; Protocol PRN Reason: Agitation Stop: 04/01/18 17:03 Last Admin: 02/09/18 21:00 Dose: 0.5 mg Magnesium Hydroxide (Milk Of Magnesia) 30 ml PO HS PRN PRN Reason: Constipation Magnesium Hydroxide (Milk Of Magnesia) 30 ml PO HS PRN PRN Reason: Constipation Stop: 04/01/18 17:46 Miscellaneous (Probiotic Screen) 1 ea MC PRN PRN PRN Reason: PROTOCOL Stop: 04/03/18 12:14 Multivitamins/Vitamin C (Theragran) 1 tab PO DAILY [facility] Stop: 04/02/18 08:59 Last Admin: 02/10/18 08:47 Dose: 1 tab Nitrofurantoin Macrocrystals (Macrobid) 100 mg PO BID [facility]; Protocol Stop: 04/01/18 16:59 Last Admin: 02/10/18 16:16 Dose: 100 mg Quetiapine Fumarate (Seroquel) 50 mg PO BID [facility]; Protocol Stop: 04/06/18 16:59 Last Admin: 02/10/18 16:20 Dose: 50 mg Quetiapine Fumarate 300 mg/ (Quetiapine Fumarate 400 mg) 700 mg PO HS [facility] Stop: 04/11/18 20:59 Last Admin: 02/10/18 20:34 Dose: 700 mg Senna (Senna) 8.6 mg PO HS [facility] Stop: 04/01/18 20:59 Last Admin: 02/10/18 20:35 Dose: 8.6 mg Tolterodine Tartrate (Detrol) 2 mg PO BID [facility] Stop: 04/02/18 08:59 Last Admin: 02/10/18 16:17 Dose: 2 mg Zolpidem Tartrate (Ambien) 5 mg PO HS PRN PRN Reason: Insomnia Stop: 04/01/18 16:55 Last Admin: 02/03/18 20:48 Dose: 5 mg General: weak, demented HEENT: NC/AT, PERRLA, EOMI, anicteric sclerae, throat clear Neck: Supple, No JVD, No thyromegaly, +2 carotid pulse wo bruit, No LAD Lungs: CTAB Cardiovascular: RRR, Normal S1, Normal S2, without murmur Abdomen: soft, non-tender, non-distended Extremities: clear Neurological: no change Internal Medicine Assmt/Plan - Assessment Assessment: 1.SEIZURE DISORDERED. 2.HYPOTHYROIDISIM. 3.DEMENTIA. - Plan Plan: CONTINUE ON CURRENT MEDICATION AND DIET. Nutritional Asmnt/Malnutr-PDOC - Dietary Evaluation Malnutrition Findings (Please click <Entered> for more info): Nutritional Asmnt/Malnutrition Start: 02/06/18 14: 31 Text: Status: Complete Freq: Protocol: Document 02/06/18 14:32 LCHENG (Rec: 02/06/18 14:44 [email or web address]) Nutritional Asmnt/Malnutrition Patient General Information Nutritional Screening Low Risk Diagnosis psychosis Pertinent Medical Hx/Surgical Hx hypothyroidism, seizure disorder, psychosis, dementia Subjective Information Per EMR, PO intake 100%. Pt tolerated regular diet Current Diet Order/ Nutrition Support regular Pertinent Medications colace, culturelle, synthroid, theragran, seroquel, senna Pertinent Labs 01/31 alb 3.5 Nutritional Hx/Data Height 1.7 m Height (Calculated Centimeters) 170.2 Current Weight (lbs) 63.503 kg Weight (Calculated Kilograms) 63.5 Weight (Calculated Grams) 98745.9 [place] Body Weight 135 Body Mass Index (BMI) 21.9 Weight Status Approriate GI Symptoms GI Symptoms None Last BM 02/05 Difficult in: None Skin Integrity/Comment: intact Current %PO Good (75-100%) Estimated Nutritional Goals BEE in Kcals: Using Current wt Calories/Kcals/Kg 25-30 Kcals Calculated 9981-8142 Protein: Using Current wt Protein g/k Protein Calculated 64 Fluid: ml 1600-1920ml (1m/kcal) Nutritional Problem No current Nutrition Prob Problem N/A Malnutrition Alert Is there a minimum of two criteria No selected? Query Text:Check all the applicable criteria. A minimum of two criteria are recommended for diagnosis of either severe or non-severe malnutrition. Malnutrition Related to Morbid Obesity Malnutrition related to morbid obesity No Intervention/Recommendation Comments 1. Continue with regular diet as ordered. 2. Monitor PO intake, wt, labs and skin integrity 3. F/U as low risk in 7 days, 02/13 Expected Outcomes/Goals Expected Outcomes/Goals 1. PO intake to meet at least 75% of nutritional needs. 2. Wt stability, skin to remain intact, labs to approach WNL.
[2018-02-11] MEDS: Levothyroxine 0.075 Mg Tab PO SCH (06:36)
--- NOTE | 2018-02-11 06:41 | Progress Notes ---
DATE: 02/11/2018 SUBJECTIVE: The patient slept well last night, remains very paranoid, disorganized, poor ADLs, poor dentition, sometimes gets upset, throws things at staff, there was water as well. I have been increasing her medications. She is actually on relatively aggressive regimen of medications, still acting out behaviors, eating on her own, volition. ASSESSMENT: The patient remains symptomatic, remains agitated, paranoid, ongoing psychotic symptoms. PLAN: We will continue to monitor, titrate and adjust medications. Given her ongoing symptoms, she is not safe for discharge at this time. JOB# [id number]
[2018-02-11] MEDS: Benztropine 1 MG TAB PO SCH ×2 (10:15→18:01)
[2018-02-11] MEDS: Lactobacillus Rhamnosus GG 15 Billion CFU CAP.SPRINK PO SCH (10:16)
[2018-02-11] MEDS: Multivitamin Tab PO SCH (10:20)
--- NOTE | 2018-02-11 18:02 | Internal Medicine Prog Note ---
Internal Medicine Subjective - Subjective Service Date: 02/11/18 Patient seen and examined:: with staff Patient is:: awake, non-verbal, in bed, confused Per staff patient has:: no adverse event Internal Medicine Objective - Results Result Diagrams: 01/31/18 13:30 01/31/18 13:30 Recent Labs: Laboratory Last Values WBC 5.2 Th/cmm (4.8-10.8) 01/31/18 13:30 RBC 3.70 Mil/cmm (3.80-5.10) L 01/31/18 13:30 Hgb 12.0 gm/dL (12-16) 01/31/18 13:30 Hct 35.2 % (41.0-60) L 01/31/18 13:30 MCV 95.0 fl (81-100) 01/31/18 13:30 MCH 32.5 pg (27.0-31.0) H 01/31/18 13:30 MCHC Differential 34.2 pg (28.0-36.0) 01/31/18 13:30 RDW 13.1 % (11.5-20.0) 01/31/18 13:30 Plt Count 202 Th/cmm (150-400) 01/31/18 13:30 MPV 6.7 fl 01/31/18 13:30 Neutrophils % 57.8 % (40.0-80.0) 01/31/18 13:30 Lymphocytes % 31.5 % (20.0-50.0) 01/31/18 13:30 Monocytes % 8.7 % (2.0-10.0) 01/31/18 13:30 Eosinophils % 1.1 % (0.0-5.0) 01/31/18 13:30 Basophils % 0.9 % (0.0-2.0) 01/31/18 13:30 Sodium 137 mEq/L (136-145) 01/31/18 13:30 Potassium 4.1 mEq/L (3.5-5.1) 01/31/18 13:30 Chloride 104 mEq/L (98-107) 01/31/18 13:30 Carbon Dioxide 28.3 mEq/L (21.0-31.0) 01/31/18 13:30 Anion Gap 8.8 (7.0-16.0) 01/31/18 13:30 BUN 25 mg/dL (7-25) 01/31/18 13:30 Creatinine 1.1 mg/dL (0.6-1.2) 01/31/18 13:30 Est GFR ( Amer) > 60.0 ml/min (>90) 01/31/18 13:30 Est GFR (Non-Af Amer) 53.7 ml/min 01/31/18 13:30 BUN/Creatinine Ratio 22.7 01/31/18 13:30 Glucose 92 mg/dL (70-105) 01/31/18 13:30 Calcium 9.1 mg/dL (8.6-10.3) 01/31/18 13:30 Total Bilirubin 0.3 mg/dL (0.3-1.0) 01/31/18 13:30 AST 18 U/L (13-39) 01/31/18 13:30 ALT 12 U/L (7-52) 01/31/18 13:30 Alkaline Phosphatase 68 U/L (34-104) 01/31/18 13:30 Troponin I 0.01 ng/mL (0.01-0.05) 01/31/18 13:30 Total Protein 6.6 gm/dL (6.0-8.3) 01/31/18 13:30 Albumin 3.5 gm/dL (3.7-5.3) L 01/31/18 13:30 Globulin 3.1 gm/dL 01/31/18 13:30 Albumin/Globulin Ratio 1.1 (1.0-1.8) 01/31/18 13:30 Triglycerides 111 mg/dL (<150) 01/31/18 13:30 Cholesterol 191 mg/dL (<200) 01/31/18 13:30 LDL Cholesterol Direct 91 mg/dL (75-193) 01/31/18 13:30 HDL Cholesterol 76 mg/dL (23-92) 01/31/18 13:30 TSH 3.99 uIU/ml (0.34-5.60) 01/31/18 13:30 Urine Source CLEAN C 01/31/18 14:00 Urine Color YELLOW 01/31/18 14:00 Urine Clarity HAZY (CLEAR) 01/31/18 14:00 Urine pH 6.0 (4.6 - 8.0) 01/31/18 14:00 Ur Specific [place] 1.010 (1.005-1.030) 01/31/18 14:00 Urine Protein NEGATIVE mg/dL (NEGATIVE) 01/31/18 14:00 Urine Glucose (UA) NEGATIVE mg/dL (NEGATIVE) 01/31/18 14:00 Urine Ketones NEGATIVE mg/dL (NEGATIVE) 01/31/18 14:00 Urine Blood SMALL (NEGATIVE) H 01/31/18 14:00 Urine Nitrate POSITIVE (NEGATIVE) H 01/31/18 14:00 Urine Bilirubin NEGATIVE (NEGATIVE) 01/31/18 14:00 Urine Urobilinogen 0.2 E.U./dL (0.2 - 1.0) 01/31/18 14:00 Ur Leukocyte Esterase MODERATE (NEGATIVE) H 01/31/18 14:00 Urine RBC 2-5 /hpf (0-5) 01/31/18 14:00 Urine WBC 6-10 /hpf (0-5) H 01/31/18 14:00 Ur Epithelial Cells MODERATE /lpf (FEW) 01/31/18 14:00 Urine Bacteria 4+ /hpf (NONE SEEN) H 01/31/18 14:00 Salicylates < 25.0 mg/L (30.0-100.0) L 01/31/18 13:30 Urine Opiates Screen NEGATIVE (NEGATIVE) 01/31/18 14:00 Urine Methadone Screen NEGATIVE (NEGATIVE) 01/31/18 14:00 Acetaminophen < 10.0 ug/mL (10.0-30.0) L 01/31/18 13:30 Ur Barbiturates Screen NEGATIVE (NEGATIVE) 01/31/18 14:00 Ur Tricyclics Screen POSITIVE (NEGATIVE) H 01/31/18 14:00 Ur Phencyclidine Scrn NEGATIVE (NEGATIVE) 01/31/18 14:00 Amphetamines Screen NEGATIVE (NEGATIVE) 01/31/18 14:00 U Methamphetamines Scrn NEGATIVE (NEGATIVE) 01/31/18 14:00 U Benzodiazepines Scrn NEGATIVE (NEGATIVE) 01/31/18 14:00 U Cocaine Metab Screen NEGATIVE (NEGATIVE) 01/31/18 14:00 U Cannabinoids Screen NEGATIVE (NEGATIVE) 01/31/18 14:00 Ethyl Alcohol < 10 mg/dL (0-10) 01/31/18 13:30 RPR NONREACTIVE (NONREACTIVE) 01/31/18 13:30 - Physical Exam Vitals and I&O: Vital Signs Temp 98.0 F 02/10/18 14:00 Pulse 79 02/10/18 14:00 Resp 19 02/10/18 14:00 BP 135/84 02/10/18 14:00 Pulse Ox 95 02/10/18 14:00 Active Medications: Current Medications Acetaminophen (Tylenol) 650 mg PO Q4HR PRN PRN Reason: Mild Pain / Temp above 100 Stop: 04/01/18 16:55 Al Hydrox/Mg Hydrox/Simethicone (Maalox) 30 ml PO Q4HR PRN PRN Reason: GI DISTRESS Stop: 04/01/18 16:55 Benztropine Mesylate (Cogentin) 2 mg PO BID [facility] Stop: 04/02/18 08:59 Last Admin: 02/11/18 10:15 Dose: 2 mg Carbamazepine (Tegretol) 400 mg PO BID [facility]; Protocol Stop: 04/02/18 08:59 Last Admin: 02/11/18 10:17 Dose: 400 mg Ciprofloxacin (Cipro) 250 mg PO BID [facility] Stop: 04/02/18 08:59 Last Admin: 02/11/18 10:20 Dose: Not Given Divalproex Sodium (Depakote Dr) 250 mg PO TID [facility]; Protocol Stop: 04/01/18 20:59 Last Admin: 02/11/18 10:16 Dose: 250 mg Docusate Sodium (Colace) 250 mg PO DAILY [facility] Stop: 04/02/18 08:59 Last Admin: 02/11/18 10:20 Dose: Not Given Fludrocortisone Acetate (Florinef) 0.1 mg PO BID [facility] Stop: 04/02/18 08:59 Last Admin: 02/11/18 10:20 Dose: Not Given Lactobacillus Rhamnosus (Culturelle 15b) 1 each PO DAILY [facility] Stop: 04/04/18 08:59 Last Admin: 02/11/18 10:16 Dose: 1 each Levetiracetam (Keppra) 500 mg PO BID [facility] Stop: 04/02/18 08:59 Last Admin: 02/11/18 10:16 Dose: 500 mg Levothyroxine Sodium (Synthroid) 0.15 mg PO QDAC [facility] Stop: 04/02/18 07:29 Last Admin: 02/11/18 06:36 Dose: 0.15 mg Lorazepam (Ativan) 0.5 mg PO Q6HR PRN; Protocol PRN Reason: Agitation Stop: 04/01/18 17:03 Last Admin: 02/09/18 21:00 Dose: 0.5 mg Magnesium Hydroxide (Milk Of Magnesia) 30 ml PO HS PRN PRN Reason: Constipation Magnesium Hydroxide (Milk Of Magnesia) 30 ml PO HS PRN PRN Reason: Constipation Stop: 04/01/18 17:46 Miscellaneous (Probiotic Screen) 1 ea MC PRN PRN PRN Reason: PROTOCOL Stop: 04/03/18 12:14 Multivitamins/Vitamin C (Theragran) 1 tab PO DAILY [facility] Stop: 04/02/18 08:59 Last Admin: 02/11/18 10:20 Dose: Not Given Nitrofurantoin Macrocrystals (Macrobid) 100 mg PO BID [facility]; Protocol Stop: 04/01/18 16:59 Last Admin: 02/11/18 10:17 Dose: 100 mg Quetiapine Fumarate (Seroquel) 50 mg PO BID [facility]; Protocol Stop: 04/06/18 16:59 Last Admin: 02/11/18 10:17 Dose: 50 mg Quetiapine Fumarate 300 mg/ (Quetiapine Fumarate 400 mg) 700 mg PO HS [facility] Stop: 04/11/18 20:59 Last Admin: 02/10/18 20:34 Dose: 700 mg Senna (Senna) 8.6 mg PO HS [facility] Stop: 04/01/18 20:59 Last Admin: 02/10/18 20:35 Dose: 8.6 mg Tolterodine Tartrate (Detrol) 2 mg PO BID [facility] Stop: 04/02/18 08:59 Last Admin: 02/11/18 10:19 Dose: 2 mg Zolpidem Tartrate (Ambien) 5 mg PO HS PRN PRN Reason: Insomnia Stop: 04/01/18 16:55 Last Admin: 02/03/18 20:48 Dose: 5 mg General: weak, demented HEENT: NC/AT, PERRLA, EOMI, anicteric sclerae, throat clear Neck: Supple, No JVD, No thyromegaly, +2 carotid pulse wo bruit, No LAD Lungs: CTAB Cardiovascular: RRR, Normal S1, Normal S2, without murmur Abdomen: soft, non-tender, non-distended Extremities: clear Neurological: no change Internal Medicine Assmt/Plan - Assessment Assessment: 1.SEIZURE DISORDERED. 2.HYPOTHYROIDISIM. 3.DEMENTIA. - Plan Plan: CONTINUE ON CURRENT MEDICATION AND DIET. Nutritional Asmnt/Malnutr-PDOC - Dietary Evaluation Malnutrition Findings (Please click <Entered> for more info): Nutritional Asmnt/Malnutrition Start: 02/06/18 14: 31 Text: Status: Complete Freq: Protocol: Document 02/06/18 14:32 LCHENG (Rec: 02/06/18 14:44 [email or web address]) Nutritional Asmnt/Malnutrition Patient General Information Nutritional Screening Low Risk Diagnosis psychosis Pertinent Medical Hx/Surgical Hx hypothyroidism, seizure disorder, psychosis, dementia Subjective Information Per EMR, PO intake 100%. Pt tolerated regular diet Current Diet Order/ Nutrition Support regular Pertinent Medications colace, culturelle, synthroid, theragran, seroquel, senna Pertinent Labs 01/31 alb 3.5 Nutritional Hx/Data Height 1.7 m Height (Calculated Centimeters) 170.2 Current Weight (lbs) 63.503 kg Weight (Calculated Kilograms) 63.5 Weight (Calculated Grams) 69163.9 [place] Body Weight 135 Body Mass Index (BMI) 21.9 Weight Status Approriate GI Symptoms GI Symptoms None Last BM 02/05 Difficult in: None Skin Integrity/Comment: intact Current %PO Good (75-100%) Estimated Nutritional Goals BEE in Kcals: Using Current wt Calories/Kcals/Kg 25-30 Kcals Calculated 7605-2694 Protein: Using Current wt Protein g/k Protein Calculated 64 Fluid: ml 1600-1920ml (1m/kcal) Nutritional Problem No current Nutrition Prob Problem N/A Malnutrition Alert Is there a minimum of two criteria No selected? Query Text:Check all the applicable criteria. A minimum of two criteria are recommended for diagnosis of either severe or non-severe malnutrition. Malnutrition Related to Morbid Obesity Malnutrition related to morbid obesity No Intervention/Recommendation Comments 1. Continue with regular diet as ordered. 2. Monitor PO intake, wt, labs and skin integrity 3. F/U as low risk in 7 days, 02/13 Expected Outcomes/Goals Expected Outcomes/Goals 1. PO intake to meet at least 75% of nutritional needs. 2. Wt stability, skin to remain intact, labs to approach WNL.
[2018-02-11] MEDS: QUETIAPINE FUMARATE PO SCH (21:13)
[2018-02-12] MEDS: Levothyroxine 0.075 Mg Tab PO SCH (06:34)
--- NOTE | 2018-02-12 06:55 | Progress Notes ---
DATE: SUBJECTIVE: The patient is currently in the hospital. Slept for about 5-6 hours, still stating her name is verónica, talking about the , believing that she has a ranch and someone is trying to steal her ranch, very disorganized, bizarre, symptomatic, on high doses of Seroquel, likely approaching her baseline, on 800 mg of Seroquel a day, in fact. ASSESSMENT: The patient is disorganized, bizarre, delusional, grandiose. PLAN: We will continue to monitor, titrate and adjust medications. Consider the addition of Haldol. JOB# [id number]
[2018-02-12] MEDS: Multivitamin Tab PO SCH (08:37)
[2018-02-12] MEDS: Benztropine 1 MG TAB PO SCH ×2 (08:37→16:56)
[2018-02-12] MEDS: Lactobacillus Rhamnosus GG 15 Billion CFU CAP.SPRINK PO SCH (08:37)
--- NOTE | 2018-02-12 18:56 | Internal Medicine Prog Note ---
Internal Medicine Subjective - Subjective Service Date: 02/12/18 Patient seen and examined:: with staff Patient is:: awake, non-verbal, in bed, confused Per staff patient has:: no adverse event Internal Medicine Objective - Results Result Diagrams: 01/31/18 13:30 01/31/18 13:30 Recent Labs: Laboratory Last Values WBC 5.2 Th/cmm (4.8-10.8) 01/31/18 13:30 RBC 3.70 Mil/cmm (3.80-5.10) L 01/31/18 13:30 Hgb 12.0 gm/dL (12-16) 01/31/18 13:30 Hct 35.2 % (41.0-60) L 01/31/18 13:30 MCV 95.0 fl (81-100) 01/31/18 13:30 MCH 32.5 pg (27.0-31.0) H 01/31/18 13:30 MCHC Differential 34.2 pg (28.0-36.0) 01/31/18 13:30 RDW 13.1 % (11.5-20.0) 01/31/18 13:30 Plt Count 202 Th/cmm (150-400) 01/31/18 13:30 MPV 6.7 fl 01/31/18 13:30 Neutrophils % 57.8 % (40.0-80.0) 01/31/18 13:30 Lymphocytes % 31.5 % (20.0-50.0) 01/31/18 13:30 Monocytes % 8.7 % (2.0-10.0) 01/31/18 13:30 Eosinophils % 1.1 % (0.0-5.0) 01/31/18 13:30 Basophils % 0.9 % (0.0-2.0) 01/31/18 13:30 Sodium 137 mEq/L (136-145) 01/31/18 13:30 Potassium 4.1 mEq/L (3.5-5.1) 01/31/18 13:30 Chloride 104 mEq/L (98-107) 01/31/18 13:30 Carbon Dioxide 28.3 mEq/L (21.0-31.0) 01/31/18 13:30 Anion Gap 8.8 (7.0-16.0) 01/31/18 13:30 BUN 25 mg/dL (7-25) 01/31/18 13:30 Creatinine 1.1 mg/dL (0.6-1.2) 01/31/18 13:30 Est GFR ( Amer) > 60.0 ml/min (>90) 01/31/18 13:30 Est GFR (Non-Af Amer) 53.7 ml/min 01/31/18 13:30 BUN/Creatinine Ratio 22.7 01/31/18 13:30 Glucose 92 mg/dL (70-105) 01/31/18 13:30 Calcium 9.1 mg/dL (8.6-10.3) 01/31/18 13:30 Total Bilirubin 0.3 mg/dL (0.3-1.0) 01/31/18 13:30 AST 18 U/L (13-39) 01/31/18 13:30 ALT 12 U/L (7-52) 01/31/18 13:30 Alkaline Phosphatase 68 U/L (34-104) 01/31/18 13:30 Troponin I 0.01 ng/mL (0.01-0.05) 01/31/18 13:30 Total Protein 6.6 gm/dL (6.0-8.3) 01/31/18 13:30 Albumin 3.5 gm/dL (3.7-5.3) L 01/31/18 13:30 Globulin 3.1 gm/dL 01/31/18 13:30 Albumin/Globulin Ratio 1.1 (1.0-1.8) 01/31/18 13:30 Triglycerides 111 mg/dL (<150) 01/31/18 13:30 Cholesterol 191 mg/dL (<200) 01/31/18 13:30 LDL Cholesterol Direct 91 mg/dL (75-193) 01/31/18 13:30 HDL Cholesterol 76 mg/dL (23-92) 01/31/18 13:30 TSH 3.99 uIU/ml (0.34-5.60) 01/31/18 13:30 Urine Source CLEAN C 01/31/18 14:00 Urine Color YELLOW 01/31/18 14:00 Urine Clarity HAZY (CLEAR) 01/31/18 14:00 Urine pH 6.0 (4.6 - 8.0) 01/31/18 14:00 Ur Specific [place] 1.010 (1.005-1.030) 01/31/18 14:00 Urine Protein NEGATIVE mg/dL (NEGATIVE) 01/31/18 14:00 Urine Glucose (UA) NEGATIVE mg/dL (NEGATIVE) 01/31/18 14:00 Urine Ketones NEGATIVE mg/dL (NEGATIVE) 01/31/18 14:00 Urine Blood SMALL (NEGATIVE) H 01/31/18 14:00 Urine Nitrate POSITIVE (NEGATIVE) H 01/31/18 14:00 Urine Bilirubin NEGATIVE (NEGATIVE) 01/31/18 14:00 Urine Urobilinogen 0.2 E.U./dL (0.2 - 1.0) 01/31/18 14:00 Ur Leukocyte Esterase MODERATE (NEGATIVE) H 01/31/18 14:00 Urine RBC 2-5 /hpf (0-5) 01/31/18 14:00 Urine WBC 6-10 /hpf (0-5) H 01/31/18 14:00 Ur Epithelial Cells MODERATE /lpf (FEW) 01/31/18 14:00 Urine Bacteria 4+ /hpf (NONE SEEN) H 01/31/18 14:00 Salicylates < 25.0 mg/L (30.0-100.0) L 01/31/18 13:30 Urine Opiates Screen NEGATIVE (NEGATIVE) 01/31/18 14:00 Urine Methadone Screen NEGATIVE (NEGATIVE) 01/31/18 14:00 Acetaminophen < 10.0 ug/mL (10.0-30.0) L 01/31/18 13:30 Ur Barbiturates Screen NEGATIVE (NEGATIVE) 01/31/18 14:00 Ur Tricyclics Screen POSITIVE (NEGATIVE) H 01/31/18 14:00 Ur Phencyclidine Scrn NEGATIVE (NEGATIVE) 01/31/18 14:00 Amphetamines Screen NEGATIVE (NEGATIVE) 01/31/18 14:00 U Methamphetamines Scrn NEGATIVE (NEGATIVE) 01/31/18 14:00 U Benzodiazepines Scrn NEGATIVE (NEGATIVE) 01/31/18 14:00 U Cocaine Metab Screen NEGATIVE (NEGATIVE) 01/31/18 14:00 U Cannabinoids Screen NEGATIVE (NEGATIVE) 01/31/18 14:00 Ethyl Alcohol < 10 mg/dL (0-10) 01/31/18 13:30 RPR NONREACTIVE (NONREACTIVE) 01/31/18 13:30 - Physical Exam Vitals and I&O: Vital Signs Temp 97 F 02/12/18 14:00 Pulse 71 02/12/18 14:00 Resp 18 02/12/18 14:00 BP 127/71 02/12/18 14:00 Pulse Ox 96 02/12/18 14:00 Intake & Output 02/11/18 02/12/18 02/12/18 18:59 06:59 18:59 Intake Total 120 1600 Balance 120 1600 Intake: Oral 120 1600 Other: # Voids 3 3 4 # Bowel Movements 0 0 Active Medications: Current Medications Acetaminophen (Tylenol) 650 mg PO Q4HR PRN PRN Reason: Mild Pain / Temp above 100 Stop: 04/01/18 16:55 Al Hydrox/Mg Hydrox/Simethicone (Maalox) 30 ml PO Q4HR PRN PRN Reason: GI DISTRESS Stop: 04/01/18 16:55 Benztropine Mesylate (Cogentin) 2 mg PO BID [facility] Stop: 04/02/18 08:59 Last Admin: 02/12/18 16:56 Dose: 2 mg Carbamazepine (Tegretol) 400 mg PO BID [facility]; Protocol Stop: 04/02/18 08:59 Last Admin: 02/12/18 16:56 Dose: 400 mg Divalproex Sodium (Depakote Dr) 250 mg PO TID [facility]; Protocol Stop: 04/01/18 20:59 Last Admin: 02/12/18 13:30 Dose: 250 mg Docusate Sodium (Colace) 250 mg PO DAILY [facility] Stop: 04/02/18 08:59 Last Admin: 02/12/18 08:37 Dose: 250 mg Fludrocortisone Acetate (Florinef) 0.1 mg PO BID [facility] Stop: 04/02/18 08:59 Last Admin: 02/12/18 16:57 Dose: 0.1 mg Lactobacillus Rhamnosus (Culturelle 15b) 1 each PO DAILY [facility] Stop: 04/04/18 08:59 Last Admin: 02/12/18 08:37 Dose: 1 each Levetiracetam (Keppra) 500 mg PO BID [facility] Stop: 04/02/18 08:59 Last Admin: 02/12/18 16:56 Dose: 500 mg Levothyroxine Sodium (Synthroid) 0.15 mg PO QDAC [facility] Stop: 04/02/18 07:29 Last Admin: 02/12/18 06:34 Dose: 0.15 mg Lorazepam (Ativan) 0.5 mg PO Q6HR PRN; Protocol PRN Reason: Agitation Stop: 04/01/18 17:03 Last Admin: 02/12/18 16:57 Dose: 0.5 mg Magnesium Hydroxide (Milk Of Magnesia) 30 ml PO HS PRN PRN Reason: Constipation Magnesium Hydroxide (Milk Of Magnesia) 30 ml PO HS PRN PRN Reason: Constipation Stop: 04/01/18 17:46 Miscellaneous (Probiotic Screen) 1 ea MC PRN PRN PRN Reason: PROTOCOL Stop: 04/03/18 12:14 Multivitamins/Vitamin C (Theragran) 1 tab PO DAILY [facility] Stop: 04/02/18 08:59 Last Admin: 02/12/18 08:37 Dose: 1 tab Quetiapine Fumarate (Seroquel) 50 mg PO BID [facility]; Protocol Stop: 04/06/18 16:59 Last Admin: 02/12/18 16:56 Dose: 50 mg Quetiapine Fumarate 300 mg/ (Quetiapine Fumarate 400 mg) 700 mg PO HS [facility] Stop: 04/11/18 20:59 Last Admin: 02/11/18 21:13 Dose: 700 mg Senna (Senna) 8.6 mg PO HS [facility] Stop: 04/01/18 20:59 Last Admin: 02/11/18 21:13 Dose: 8.6 mg Tolterodine Tartrate (Detrol) 2 mg PO BID [facility] Stop: 04/02/18 08:59 Last Admin: 02/12/18 16:57 Dose: 2 mg Zolpidem Tartrate (Ambien) 5 mg PO HS PRN PRN Reason: Insomnia Stop: 04/01/18 16:55 Last Admin: 02/03/18 20:48 Dose: 5 mg General: weak, demented HEENT: NC/AT, PERRLA, EOMI, anicteric sclerae, throat clear Neck: Supple, No JVD, No thyromegaly, +2 carotid pulse wo bruit, No LAD Lungs: CTAB Cardiovascular: RRR, Normal S1, Normal S2, without murmur Abdomen: soft, non-tender, non-distended Extremities: clear Neurological: no change Internal Medicine Assmt/Plan - Assessment Assessment: 1.SEIZURE DISORDERED. 2.HYPOTHYROIDISIM. 3.DEMENTIA. - Plan Plan: CONTINUE ON CURRENT MEDICATION AND DIET. Nutritional Asmnt/Malnutr-PDOC - Dietary Evaluation Malnutrition Findings (Please click <Entered> for more info): Nutritional Asmnt/Malnutrition Start: 02/06/18 14: 31 Text: Status: Complete Freq: Protocol: Document 02/06/18 14:32 [email or web address] (Rec: 02/06/18 14:44 [email or web address]) Nutritional Asmnt/Malnutrition Patient General Information Nutritional Screening Low Risk Diagnosis psychosis Pertinent Medical Hx/Surgical Hx hypothyroidism, seizure disorder, psychosis, dementia Subjective Information Per EMR, PO intake 100%. Pt tolerated regular diet Current Diet Order/ Nutrition Support regular Pertinent Medications colace, culturelle, synthroid, theragran, seroquel, senna Pertinent Labs 01/31 alb 3.5 Nutritional Hx/Data Height 1.7 m Height (Calculated Centimeters) 170.2 Current Weight (lbs) 63.503 kg Weight (Calculated Kilograms) 63.5 Weight (Calculated Grams) 61489.9 [place] Body Weight 135 Body Mass Index (BMI) 21.9 Weight Status Approriate GI Symptoms GI Symptoms None Last BM 02/05 Difficult in: None Skin Integrity/Comment: intact Current %PO Good (75-100%) Estimated Nutritional Goals BEE in Kcals: Using Current wt Calories/Kcals/Kg 25-30 Kcals Calculated [id number] Protein: Using Current wt Protein g/k Protein Calculated 64 Fluid: ml 1600-1920ml (1m/kcal) Nutritional Problem No current Nutrition Prob Problem N/A Malnutrition Alert Is there a minimum of two criteria No selected? Query Text:Check all the applicable criteria. A minimum of two criteria are recommended for diagnosis of either severe or non-severe malnutrition. Malnutrition Related to Morbid Obesity Malnutrition related to morbid obesity No Intervention/Recommendation Comments 1. Continue with regular diet as ordered. 2. Monitor PO intake, wt, labs and skin integrity 3. F/U as low risk in 7 days, 02/13 Expected Outcomes/Goals Expected Outcomes/Goals 1. PO intake to meet at least 75% of nutritional needs. 2. Wt stability, skin to remain intact, labs to approach WNL.
[2018-02-12] MEDS: QUETIAPINE FUMARATE PO SCH (21:23)
[2018-02-13] MEDS: Levothyroxine 0.075 Mg Tab PO SCH (06:35)
[2018-02-13] MEDS: Multivitamin Tab PO SCH (09:07)
[2018-02-13] MEDS: Benztropine 1 MG TAB PO SCH ×2 (09:07→16:33)
[2018-02-13] MEDS: Lactobacillus Rhamnosus GG 15 Billion CFU CAP.SPRINK PO SCH (09:09)
[2018-02-13] MEDS ORDERED: Haldol Oral Sol.(concentrate) 10 mg/5 mL Udc PO SCH (17:00)
[2018-02-13] MEDS ORDERED: Haldol Oral Sol.(concentrate) 10 mg/5 mL Udc PO ONE (17:15)
[2018-02-13] MEDS: QUETIAPINE FUMARATE PO SCH (21:04)
--- NOTE | 2018-02-13 22:25 | Internal Medicine Prog Note ---
Internal Medicine Subjective - Subjective Service Date: 02/13/18 Patient seen and examined:: with staff Patient is:: awake, non-verbal, in bed, confused Per staff patient has:: no adverse event Internal Medicine Objective - Results Result Diagrams: 01/31/18 13:30 01/31/18 13:30 Recent Labs: Laboratory Last Values WBC 5.2 Th/cmm (4.8-10.8) 01/31/18 13:30 RBC 3.70 Mil/cmm (3.80-5.10) L 01/31/18 13:30 Hgb 12.0 gm/dL (12-16) 01/31/18 13:30 Hct 35.2 % (41.0-60) L 01/31/18 13:30 MCV 95.0 fl (81-100) 01/31/18 13:30 MCH 32.5 pg (27.0-31.0) H 01/31/18 13:30 MCHC Differential 34.2 pg (28.0-36.0) 01/31/18 13:30 RDW 13.1 % (11.5-20.0) 01/31/18 13:30 Plt Count 202 Th/cmm (150-400) 01/31/18 13:30 MPV 6.7 fl 01/31/18 13:30 Neutrophils % 57.8 % (40.0-80.0) 01/31/18 13:30 Lymphocytes % 31.5 % (20.0-50.0) 01/31/18 13:30 Monocytes % 8.7 % (2.0-10.0) 01/31/18 13:30 Eosinophils % 1.1 % (0.0-5.0) 01/31/18 13:30 Basophils % 0.9 % (0.0-2.0) 01/31/18 13:30 Sodium 137 mEq/L (136-145) 01/31/18 13:30 Potassium 4.1 mEq/L (3.5-5.1) 01/31/18 13:30 Chloride 104 mEq/L (98-107) 01/31/18 13:30 Carbon Dioxide 28.3 mEq/L (21.0-31.0) 01/31/18 13:30 Anion Gap 8.8 (7.0-16.0) 01/31/18 13:30 BUN 25 mg/dL (7-25) 01/31/18 13:30 Creatinine 1.1 mg/dL (0.6-1.2) 01/31/18 13:30 Est GFR ( Amer) > 60.0 ml/min (>90) 01/31/18 13:30 Est GFR (Non-Af Amer) 53.7 ml/min 01/31/18 13:30 BUN/Creatinine Ratio 22.7 01/31/18 13:30 Glucose 92 mg/dL (70-105) 01/31/18 13:30 Calcium 9.1 mg/dL (8.6-10.3) 01/31/18 13:30 Total Bilirubin 0.3 mg/dL (0.3-1.0) 01/31/18 13:30 AST 18 U/L (13-39) 01/31/18 13:30 ALT 12 U/L (7-52) 01/31/18 13:30 Alkaline Phosphatase 68 U/L (34-104) 01/31/18 13:30 Troponin I 0.01 ng/mL (0.01-0.05) 01/31/18 13:30 Total Protein 6.6 gm/dL (6.0-8.3) 01/31/18 13:30 Albumin 3.5 gm/dL (3.7-5.3) L 01/31/18 13:30 Globulin 3.1 gm/dL 01/31/18 13:30 Albumin/Globulin Ratio 1.1 (1.0-1.8) 01/31/18 13:30 Triglycerides 111 mg/dL (<150) 01/31/18 13:30 Cholesterol 191 mg/dL (<200) 01/31/18 13:30 LDL Cholesterol Direct 91 mg/dL (75-193) 01/31/18 13:30 HDL Cholesterol 76 mg/dL (23-92) 01/31/18 13:30 TSH 3.99 uIU/ml (0.34-5.60) 01/31/18 13:30 Urine Source CLEAN C 01/31/18 14:00 Urine Color YELLOW 01/31/18 14:00 Urine Clarity HAZY (CLEAR) 01/31/18 14:00 Urine pH 6.0 (4.6 - 8.0) 01/31/18 14:00 Ur Specific [place] 1.010 (1.005-1.030) 01/31/18 14:00 Urine Protein NEGATIVE mg/dL (NEGATIVE) 01/31/18 14:00 Urine Glucose (UA) NEGATIVE mg/dL (NEGATIVE) 01/31/18 14:00 Urine Ketones NEGATIVE mg/dL (NEGATIVE) 01/31/18 14:00 Urine Blood SMALL (NEGATIVE) H 01/31/18 14:00 Urine Nitrate POSITIVE (NEGATIVE) H 01/31/18 14:00 Urine Bilirubin NEGATIVE (NEGATIVE) 01/31/18 14:00 Urine Urobilinogen 0.2 E.U./dL (0.2 - 1.0) 01/31/18 14:00 Ur Leukocyte Esterase MODERATE (NEGATIVE) H 01/31/18 14:00 Urine RBC 2-5 /hpf (0-5) 01/31/18 14:00 Urine WBC 6-10 /hpf (0-5) H 01/31/18 14:00 Ur Epithelial Cells MODERATE /lpf (FEW) 01/31/18 14:00 Urine Bacteria 4+ /hpf (NONE SEEN) H 01/31/18 14:00 Salicylates < 25.0 mg/L (30.0-100.0) L 01/31/18 13:30 Urine Opiates Screen NEGATIVE (NEGATIVE) 01/31/18 14:00 Urine Methadone Screen NEGATIVE (NEGATIVE) 01/31/18 14:00 Acetaminophen < 10.0 ug/mL (10.0-30.0) L 01/31/18 13:30 Ur Barbiturates Screen NEGATIVE (NEGATIVE) 01/31/18 14:00 Ur Tricyclics Screen POSITIVE (NEGATIVE) H 01/31/18 14:00 Ur Phencyclidine Scrn NEGATIVE (NEGATIVE) 01/31/18 14:00 Amphetamines Screen NEGATIVE (NEGATIVE) 01/31/18 14:00 U Methamphetamines Scrn NEGATIVE (NEGATIVE) 01/31/18 14:00 U Benzodiazepines Scrn NEGATIVE (NEGATIVE) 01/31/18 14:00 U Cocaine Metab Screen NEGATIVE (NEGATIVE) 01/31/18 14:00 U Cannabinoids Screen NEGATIVE (NEGATIVE) 01/31/18 14:00 Ethyl Alcohol < 10 mg/dL (0-10) 01/31/18 13:30 RPR NONREACTIVE (NONREACTIVE) 01/31/18 13:30 - Physical Exam Vitals and I&O: Vital Signs Temp 97.8 F 02/13/18 20:22 Pulse 90 02/13/18 20:22 Resp 20 02/13/18 20:22 BP 161/76 02/13/18 20:22 Pulse Ox 97 02/13/18 20:22 Intake & Output 02/13/18 02/13/18 02/14/18 06:59 18:59 06:59 Intake Total 120 900 240 Output Total 1 Balance 120 900 239 Intake: Oral 120 900 240 Output: Stool 1 Other: # Voids 1 3 1 # Bowel Movements 0 0 Active Medications: Current Medications Acetaminophen (Tylenol) 650 mg PO Q4HR PRN PRN Reason: Mild Pain / Temp above 100 Stop: 04/01/18 16:55 Al Hydrox/Mg Hydrox/Simethicone (Maalox) 30 ml PO Q4HR PRN PRN Reason: GI DISTRESS Stop: 04/01/18 16:55 Benztropine Mesylate (Cogentin) 2 mg PO BID [facility] Stop: 04/02/18 08:59 Last Admin: 02/13/18 16:33 Dose: 2 mg Carbamazepine (Tegretol) 400 mg PO BID [facility]; Protocol Stop: 04/02/18 08:59 Last Admin: 02/13/18 16:35 Dose: 400 mg Divalproex Sodium (Depakote Dr) 250 mg PO TID [facility]; Protocol Stop: 04/01/18 20:59 Last Admin: 02/13/18 21:05 Dose: 250 mg Docusate Sodium (Colace) 250 mg PO DAILY [facility] Stop: 04/02/18 08:59 Last Admin: 02/13/18 09:08 Dose: 250 mg Fludrocortisone Acetate (Florinef) 0.1 mg PO BID [facility] Stop: 04/02/18 08:59 Last Admin: 02/13/18 16:48 Dose: 0.1 mg Haloperidol Lactate (Haldol Concentrate 10mg/5ml Susp) 2 mg PO BID [facility]; Protocol Stop: 04/14/18 16:59 Lactobacillus Rhamnosus (Culturelle 15b) 1 each PO DAILY [facility] Stop: 04/04/18 08:59 Last Admin: 02/13/18 09:09 Dose: 1 each Levetiracetam (Keppra) 500 mg PO BID [facility] Stop: 04/02/18 08:59 Last Admin: 02/13/18 16:35 Dose: 500 mg Levothyroxine Sodium (Synthroid) 0.15 mg PO QDAC [facility] Stop: 04/02/18 07:29 Last Admin: 02/13/18 06:35 Dose: 0.15 mg Lorazepam (Ativan) 0.5 mg PO Q6HR PRN; Protocol PRN Reason: Agitation Stop: 04/01/18 17:03 Last Admin: 02/13/18 05:57 Dose: 0.5 mg Magnesium Hydroxide (Milk Of Magnesia) 30 ml PO HS PRN PRN Reason: Constipation Magnesium Hydroxide (Milk Of Magnesia) 30 ml PO HS PRN PRN Reason: Constipation Stop: 04/01/18 17:46 Miscellaneous (Probiotic Screen) 1 ea MC PRN PRN PRN Reason: PROTOCOL Stop: 04/03/18 12:14 Multivitamins/Vitamin C (Theragran) 1 tab PO DAILY [facility] Stop: 04/02/18 08:59 Last Admin: 02/13/18 09:07 Dose: 1 tab Quetiapine Fumarate (Seroquel) 50 mg PO BID [facility]; Protocol Stop: 04/06/18 16:59 Last Admin: 02/13/18 16:47 Dose: 50 mg Quetiapine Fumarate 300 mg/ (Quetiapine Fumarate 400 mg) 700 mg PO HS [facility] Stop: 04/11/18 20:59 Last Admin: 02/13/18 21:04 Dose: 700 mg Senna (Senna) 8.6 mg PO HS [facility] Stop: 04/01/18 20:59 Last Admin: 02/13/18 21:05 Dose: 8.6 mg Tolterodine Tartrate (Detrol) 2 mg PO BID [facility] Stop: 04/02/18 08:59 Last Admin: 02/13/18 16:34 Dose: 2 mg Zolpidem Tartrate (Ambien) 5 mg PO HS PRN PRN Reason: Insomnia Stop: 04/01/18 16:55 Last Admin: 02/12/18 21:23 Dose: 5 mg General: weak, demented HEENT: NC/AT, PERRLA, EOMI, anicteric sclerae, throat clear Neck: Supple, No JVD, No thyromegaly, +2 carotid pulse wo bruit, No LAD Lungs: CTAB Cardiovascular: RRR, Normal S1, Normal S2, without murmur Abdomen: soft, non-tender, non-distended Extremities: clear Neurological: no change Internal Medicine Assmt/Plan - Assessment Assessment: 1.SEIZURE DISORDERED. 2.HYPOTHYROIDISIM. 3.DEMENTIA. - Plan Plan: CONTINUE ON CURRENT MEDICATION AND DIET. Nutritional Asmnt/Malnutr-PDOC - Dietary Evaluation Malnutrition Findings (Please click <Entered> for more info): Nutritional Asmnt/Malnutrition Start: 02/06/18 14: 31 Text: Status: Complete Freq: Protocol: Document 02/06/18 14:32 LCHENG (Rec: 02/06/18 14:44 [email or web address]) Nutritional Asmnt/Malnutrition Patient General Information Nutritional Screening Low Risk Diagnosis psychosis Pertinent Medical Hx/Surgical Hx hypothyroidism, seizure disorder, psychosis, dementia Subjective Information Per EMR, PO intake 100%. Pt tolerated regular diet Current Diet Order/ Nutrition Support regular Pertinent Medications colace, culturelle, synthroid, theragran, seroquel, senna Pertinent Labs 01/31 alb 3.5 Nutritional Hx/Data Height 1.7 m Height (Calculated Centimeters) 170.2 Current Weight (lbs) 63.503 kg Weight (Calculated Kilograms) 63.5 Weight (Calculated Grams) 17556.9 [place] Body Weight 135 Body Mass Index (BMI) 21.9 Weight Status Approriate GI Symptoms GI Symptoms None Last BM 02/05 Difficult in: None Skin Integrity/Comment: intact Current %PO Good (75-100%) Estimated Nutritional Goals BEE in Kcals: Using Current wt Calories/Kcals/Kg 25-30 Kcals Calculated 9986-1283 Protein: Using Current wt Protein g/k Protein Calculated 64 Fluid: ml 1600-1920ml (1m/kcal) Nutritional Problem No current Nutrition Prob Problem N/A Malnutrition Alert Is there a minimum of two criteria No selected? Query Text:Check all the applicable criteria. A minimum of two criteria are recommended for diagnosis of either severe or non-severe malnutrition. Malnutrition Related to Morbid Obesity Malnutrition related to morbid obesity No Intervention/Recommendation Comments 1. Continue with regular diet as ordered. 2. Monitor PO intake, wt, labs and skin integrity 3. F/U as low risk in 7 days, 9/24 Expected Outcomes/Goals Expected Outcomes/Goals 1. PO intake to meet at least 75% of nutritional needs. 2. Wt stability, skin to remain intact, labs to approach WNL.
[2018-02-14] MEDS: Levothyroxine 0.075 Mg Tab PO SCH (06:43)
--- NOTE | 2018-02-14 07:10 | Progress Notes ---
DATE: 02/13/2018 SUBJECTIVE: The patient poorly oriented, argumentative, violent, threatening towards staff, still agitated, bizarre, psychotic, very paranoid, still asking me who I am, I have been seeing her every day since she admitted, currently on high dosing of Seroquel, still with ongoing symptoms. ASSESSMENT: The patient remains symptomatic, still psychotic appearing, still can be dangerous and aggressive. PLAN: We will continue to monitor. Consider the addition of Haldol dosing. Medications were reviewed including dosages and frequencies. We are also trying to confirm a safe discharge plan for the patient. [facility]# [id number]
[2018-02-14] MEDS: Benztropine 1 MG TAB PO SCH ×2 (08:27→17:40)
[2018-02-14] MEDS: Multivitamin Tab PO SCH (08:28)
[2018-02-14] MEDS: Lactobacillus Rhamnosus GG 15 Billion CFU CAP.SPRINK PO SCH (08:28)
[2018-02-14] MEDS: Haldol Oral Sol.(concentrate) 10 mg/5 mL Udc PO SCH (17:39)
--- NOTE | 2018-02-14 18:29 | Internal Medicine Prog Note ---
Internal Medicine Subjective - Subjective Service Date: 02/14/18 Patient seen and examined:: with staff Patient is:: awake, non-verbal, in bed, confused Per staff patient has:: no adverse event Internal Medicine Objective - Results Result Diagrams: 01/31/18 13:30 01/31/18 13:30 Recent Labs: Laboratory Last Values WBC 5.2 Th/cmm (4.8-10.8) 01/31/18 13:30 RBC 3.70 Mil/cmm (3.80-5.10) L 01/31/18 13:30 Hgb 12.0 gm/dL (12-16) 01/31/18 13:30 Hct 35.2 % (41.0-60) L 01/31/18 13:30 MCV 95.0 fl (81-100) 01/31/18 13:30 MCH 32.5 pg (27.0-31.0) H 01/31/18 13:30 MCHC Differential 34.2 pg (28.0-36.0) 01/31/18 13:30 RDW 13.1 % (11.5-20.0) 01/31/18 13:30 Plt Count 202 Th/cmm (150-400) 01/31/18 13:30 MPV 6.7 fl 01/31/18 13:30 Neutrophils % 57.8 % (40.0-80.0) 01/31/18 13:30 Lymphocytes % 31.5 % (20.0-50.0) 01/31/18 13:30 Monocytes % 8.7 % (2.0-10.0) 01/31/18 13:30 Eosinophils % 1.1 % (0.0-5.0) 01/31/18 13:30 Basophils % 0.9 % (0.0-2.0) 01/31/18 13:30 Sodium 137 mEq/L (136-145) 01/31/18 13:30 Potassium 4.1 mEq/L (3.5-5.1) 01/31/18 13:30 Chloride 104 mEq/L (98-107) 01/31/18 13:30 Carbon Dioxide 28.3 mEq/L (21.0-31.0) 01/31/18 13:30 Anion Gap 8.8 (7.0-16.0) 01/31/18 13:30 BUN 25 mg/dL (7-25) 01/31/18 13:30 Creatinine 1.1 mg/dL (0.6-1.2) 01/31/18 13:30 Est GFR ( Amer) > 60.0 ml/min (>90) 01/31/18 13:30 Est GFR (Non-Af Amer) 53.7 ml/min 01/31/18 13:30 BUN/Creatinine Ratio 22.7 01/31/18 13:30 Glucose 92 mg/dL (70-105) 01/31/18 13:30 Calcium 9.1 mg/dL (8.6-10.3) 01/31/18 13:30 Total Bilirubin 0.3 mg/dL (0.3-1.0) 01/31/18 13:30 AST 18 U/L (13-39) 01/31/18 13:30 ALT 12 U/L (7-52) 01/31/18 13:30 Alkaline Phosphatase 68 U/L (34-104) 01/31/18 13:30 Troponin I 0.01 ng/mL (0.01-0.05) 01/31/18 13:30 Total Protein 6.6 gm/dL (6.0-8.3) 01/31/18 13:30 Albumin 3.5 gm/dL (3.7-5.3) L 01/31/18 13:30 Globulin 3.1 gm/dL 01/31/18 13:30 Albumin/Globulin Ratio 1.1 (1.0-1.8) 01/31/18 13:30 Triglycerides 111 mg/dL (<150) 01/31/18 13:30 Cholesterol 191 mg/dL (<200) 01/31/18 13:30 LDL Cholesterol Direct 91 mg/dL (75-193) 01/31/18 13:30 HDL Cholesterol 76 mg/dL (23-92) 01/31/18 13:30 TSH 3.99 uIU/ml (0.34-5.60) 01/31/18 13:30 Urine Source CLEAN C 01/31/18 14:00 Urine Color YELLOW 01/31/18 14:00 Urine Clarity HAZY (CLEAR) 01/31/18 14:00 Urine pH 6.0 (4.6 - 8.0) 01/31/18 14:00 Ur Specific [place] 1.010 (1.005-1.030) 01/31/18 14:00 Urine Protein NEGATIVE mg/dL (NEGATIVE) 01/31/18 14:00 Urine Glucose (UA) NEGATIVE mg/dL (NEGATIVE) 01/31/18 14:00 Urine Ketones NEGATIVE mg/dL (NEGATIVE) 01/31/18 14:00 Urine Blood SMALL (NEGATIVE) H 01/31/18 14:00 Urine Nitrate POSITIVE (NEGATIVE) H 01/31/18 14:00 Urine Bilirubin NEGATIVE (NEGATIVE) 01/31/18 14:00 Urine Urobilinogen 0.2 E.U./dL (0.2 - 1.0) 01/31/18 14:00 Ur Leukocyte Esterase MODERATE (NEGATIVE) H 01/31/18 14:00 Urine RBC 2-5 /hpf (0-5) 01/31/18 14:00 Urine WBC 6-10 /hpf (0-5) H 01/31/18 14:00 Ur Epithelial Cells MODERATE /lpf (FEW) 01/31/18 14:00 Urine Bacteria 4+ /hpf (NONE SEEN) H 01/31/18 14:00 Salicylates < 25.0 mg/L (30.0-100.0) L 01/31/18 13:30 Urine Opiates Screen NEGATIVE (NEGATIVE) 01/31/18 14:00 Urine Methadone Screen NEGATIVE (NEGATIVE) 01/31/18 14:00 Acetaminophen < 10.0 ug/mL (10.0-30.0) L 01/31/18 13:30 Ur Barbiturates Screen NEGATIVE (NEGATIVE) 01/31/18 14:00 Ur Tricyclics Screen POSITIVE (NEGATIVE) H 01/31/18 14:00 Ur Phencyclidine Scrn NEGATIVE (NEGATIVE) 01/31/18 14:00 Amphetamines Screen NEGATIVE (NEGATIVE) 01/31/18 14:00 U Methamphetamines Scrn NEGATIVE (NEGATIVE) 01/31/18 14:00 U Benzodiazepines Scrn NEGATIVE (NEGATIVE) 01/31/18 14:00 U Cocaine Metab Screen NEGATIVE (NEGATIVE) 01/31/18 14:00 U Cannabinoids Screen NEGATIVE (NEGATIVE) 01/31/18 14:00 Ethyl Alcohol < 10 mg/dL (0-10) 01/31/18 13:30 RPR NONREACTIVE (NONREACTIVE) 01/31/18 13:30 - Physical Exam Vitals and I&O: Vital Signs Temp 98.5 F 02/14/18 14:00 Pulse 81 02/14/18 14:00 Resp 18 02/14/18 15:10 BP 141/75 02/14/18 14:00 Pulse Ox 99 02/14/18 14:00 Intake & Output 02/13/18 02/14/18 02/14/18 18:59 06:59 18:59 Intake Total 254 140 9343 Output Total 1 Balance 590 599 8753 Intake: Oral 163 703 7727 Output: Stool 1 Other: # Voids 3 1 4 # Bowel Movements 0 0 1 Active Medications: Current Medications Acetaminophen (Tylenol) 650 mg PO Q4HR PRN PRN Reason: Mild Pain / Temp above 100 Stop: 04/01/18 16:55 Al Hydrox/Mg Hydrox/Simethicone (Maalox) 30 ml PO Q4HR PRN PRN Reason: GI DISTRESS Stop: 04/01/18 16:55 Benztropine Mesylate (Cogentin) 2 mg PO BID [facility] Stop: 04/02/18 08:59 Last Admin: 02/14/18 17:40 Dose: 2 mg Carbamazepine (Tegretol) 400 mg PO BID [facility]; Protocol Stop: 04/02/18 08:59 Last Admin: 02/14/18 17:40 Dose: 400 mg Divalproex Sodium (Depakote Dr) 250 mg PO TID [facility]; Protocol Stop: 04/01/18 20:59 Last Admin: 02/14/18 13:49 Dose: 250 mg Docusate Sodium (Colace) 250 mg PO DAILY [facility] Stop: 04/02/18 08:59 Last Admin: 02/14/18 08:27 Dose: 250 mg Fludrocortisone Acetate (Florinef) 0.1 mg PO BID [facility] Stop: 04/02/18 08:59 Last Admin: 02/14/18 17:43 Dose: 0.1 mg Haloperidol Lactate (Haldol Concentrate 10mg/5ml Susp) 4 mg PO BID [facility]; Protocol Stop: 04/15/18 16:59 Last Admin: 02/14/18 17:39 Dose: 4 mg Lactobacillus Rhamnosus (Culturelle 15b) 1 each PO DAILY [facility] Stop: 04/04/18 08:59 Last Admin: 02/14/18 08:28 Dose: 1 each Levetiracetam (Keppra) 500 mg PO BID [facility] Stop: 04/02/18 08:59 Last Admin: 02/14/18 17:43 Dose: 500 mg Levothyroxine Sodium (Synthroid) 0.15 mg PO QDAC [facility] Stop: 04/02/18 07:29 Last Admin: 02/14/18 06:43 Dose: 0.15 mg Lorazepam (Ativan) 0.5 mg PO Q6HR PRN; Protocol PRN Reason: Agitation Stop: 04/01/18 17:03 Last Admin: 02/14/18 08:28 Dose: 0.5 mg Magnesium Hydroxide (Milk Of Magnesia) 30 ml PO HS PRN PRN Reason: Constipation Magnesium Hydroxide (Milk Of Magnesia) 30 ml PO HS PRN PRN Reason: Constipation Stop: 04/01/18 17:46 Miscellaneous (Probiotic Screen) 1 ea MC PRN PRN PRN Reason: PROTOCOL Stop: 04/03/18 12:14 Multivitamins/Vitamin C (Theragran) 1 tab PO DAILY [facility] Stop: 04/02/18 08:59 Last Admin: 02/14/18 08:28 Dose: 1 tab Quetiapine Fumarate (Seroquel) 50 mg PO BID [facility]; Protocol Stop: 04/06/18 16:59 Last Admin: 02/14/18 17:43 Dose: 50 mg Quetiapine Fumarate 300 mg/ (Quetiapine Fumarate 400 mg) 700 mg PO HS [facility] Stop: 04/11/18 20:59 Last Admin: 02/13/18 21:04 Dose: 700 mg Senna (Senna) 8.6 mg PO HS [facility] Stop: 04/01/18 20:59 Last Admin: 02/13/18 21:05 Dose: 8.6 mg Tolterodine Tartrate (Detrol) 2 mg PO BID [facility] Stop: 04/02/18 08:59 Last Admin: 02/14/18 17:43 Dose: 2 mg Zolpidem Tartrate (Ambien) 5 mg PO HS PRN PRN Reason: Insomnia Stop: 04/01/18 16:55 Last Admin: 02/12/18 21:23 Dose: 5 mg General: weak, demented HEENT: NC/AT, PERRLA, EOMI, anicteric sclerae, throat clear Neck: Supple, No JVD, No thyromegaly, +2 carotid pulse wo bruit, No LAD Lungs: CTAB Cardiovascular: RRR, Normal S1, Normal S2, without murmur Abdomen: soft, non-tender, non-distended Extremities: clear Neurological: no change Internal Medicine Assmt/Plan - Assessment Assessment: 1.SEIZURE DISORDERED. 2.HYPOTHYROIDISIM. 3.DEMENTIA. - Plan Plan: CONTINUE ON CURRENT MEDICATION AND DIET. Nutritional Asmnt/Malnutr-PDOC - Dietary Evaluation Malnutrition Findings (Please click <Entered> for more info): Nutritional Asmnt/Malnutrition Start: 02/06/18 14: 31 Text: Status: Complete Freq: Protocol: Document 02/06/18 14:32 [email or web address] (Rec: 02/06/18 14:44 [email or web address]) Nutritional Asmnt/Malnutrition Patient General Information Nutritional Screening Low Risk Diagnosis psychosis Pertinent Medical Hx/Surgical Hx hypothyroidism, seizure disorder, psychosis, dementia Subjective Information Per EMR, PO intake 100%. Pt tolerated regular diet Current Diet Order/ Nutrition Support regular Pertinent Medications colace, culturelle, synthroid, theragran, seroquel, senna Pertinent Labs 01/31 alb 3.5 Nutritional Hx/Data Height 1.7 m Height (Calculated Centimeters) 170.2 Current Weight (lbs) 63.503 kg Weight (Calculated Kilograms) 63.5 Weight (Calculated Grams) 29526.9 [place] Body Weight 135 Body Mass Index (BMI) 21.9 Weight Status Approriate GI Symptoms GI Symptoms None Last BM 02/05 Difficult in: None Skin Integrity/Comment: intact Current %PO Good (75-100%) Estimated Nutritional Goals BEE in Kcals: Using Current wt Calories/Kcals/Kg 25-30 Kcals Calculated 2320-9352 Protein: Using Current wt Protein g/k Protein Calculated 64 Fluid: ml 1600-1920ml (1m/kcal) Nutritional Problem No current Nutrition Prob Problem N/A Malnutrition Alert Is there a minimum of two criteria No selected? Query Text:Check all the applicable criteria. A minimum of two criteria are recommended for diagnosis of either severe or non-severe malnutrition. Malnutrition Related to Morbid Obesity Malnutrition related to morbid obesity No Intervention/Recommendation Comments 1. Continue with regular diet as ordered. 2. Monitor PO intake, wt, labs and skin integrity 3. F/U as low risk in 7 days, 02/13 Expected Outcomes/Goals Expected Outcomes/Goals 1. PO intake to meet at least 75% of nutritional needs. 2. Wt stability, skin to remain intact, labs to approach WNL.
[2018-02-14] MEDS: QUETIAPINE FUMARATE PO SCH (20:42)
--- NOTE | 2018-02-15 05:30 | Progress Notes ---
DATE: 02/14/2018 SUBJECTIVE: The patient bizarre, psychotic, symptomatic, making nonsensical statements, stating that she needs to register her name, she "has a lot of names." She states she lost her clothes, talking about her real , talking about an address that is somewhat related to her birthday and she states that she wants to leave here and go to a ranch. The patient talking about different topics like a birthday gift, other people's husbands, not really making any sense, disorganized, preoccupied, still highly impulsive, unpredictable, had been throwing objects previously. ASSESSMENT: The patient remains symptomatic, psychotic, bizarre, nonsensical, gravely disabled, too psychotic to care for her basic needs, needing constant prompting and redirection. PLAN: We will continue to monitor and titrate dosing of Haldol. JOB# [id number]
[2018-02-15] MEDS: Levothyroxine 0.075 Mg Tab PO SCH (06:36)
[2018-02-15] MEDS: Haldol Oral Sol.(concentrate) 10 mg/5 mL Udc PO SCH ×2 (08:40→16:57)
[2018-02-15] MEDS: Lactobacillus Rhamnosus GG 15 Billion CFU CAP.SPRINK PO SCH (08:41)
[2018-02-15] MEDS: Multivitamin Tab PO SCH (08:41)
[2018-02-15] MEDS: Benztropine 1 MG TAB PO SCH ×2 (08:41→16:58)
--- NOTE | 2018-02-15 19:29 | General Progress Note ---
Subjective - Review of Systems Service Date: 02/15/18 Subjective: resting comfortably no distress Objective - Results Result Diagrams: 01/31/18 13:30 01/31/18 13:30 Recent Labs: Laboratory Last Values WBC 5.2 Th/cmm (4.8-10.8) 01/31/18 13:30 RBC 3.70 Mil/cmm (3.80-5.10) L 01/31/18 13:30 Hgb 12.0 gm/dL (12-16) 01/31/18 13:30 Hct 35.2 % (41.0-60) L 01/31/18 13:30 MCV 95.0 fl (81-100) 01/31/18 13:30 MCH 32.5 pg (27.0-31.0) H 01/31/18 13:30 MCHC Differential 34.2 pg (28.0-36.0) 01/31/18 13:30 RDW 13.1 % (11.5-20.0) 01/31/18 13:30 Plt Count 202 Th/cmm (150-400) 01/31/18 13:30 MPV 6.7 fl 01/31/18 13:30 Neutrophils % 57.8 % (40.0-80.0) 01/31/18 13:30 Lymphocytes % 31.5 % (20.0-50.0) 01/31/18 13:30 Monocytes % 8.7 % (2.0-10.0) 01/31/18 13:30 Eosinophils % 1.1 % (0.0-5.0) 01/31/18 13:30 Basophils % 0.9 % (0.0-2.0) 01/31/18 13:30 Sodium 137 mEq/L (136-145) 01/31/18 13:30 Potassium 4.1 mEq/L (3.5-5.1) 01/31/18 13:30 Chloride 104 mEq/L (98-107) 01/31/18 13:30 Carbon Dioxide 28.3 mEq/L (21.0-31.0) 01/31/18 13:30 Anion Gap 8.8 (7.0-16.0) 01/31/18 13:30 BUN 25 mg/dL (7-25) 01/31/18 13:30 Creatinine 1.1 mg/dL (0.6-1.2) 01/31/18 13:30 Est GFR ( Amer) > 60.0 ml/min (>90) 01/31/18 13:30 Est GFR (Non-Af Amer) 53.7 ml/min 01/31/18 13:30 BUN/Creatinine Ratio 22.7 01/31/18 13:30 Glucose 92 mg/dL (70-105) 01/31/18 13:30 Calcium 9.1 mg/dL (8.6-10.3) 01/31/18 13:30 Total Bilirubin 0.3 mg/dL (0.3-1.0) 01/31/18 13:30 AST 18 U/L (13-39) 01/31/18 13:30 ALT 12 U/L (7-52) 01/31/18 13:30 Alkaline Phosphatase 68 U/L (34-104) 01/31/18 13:30 Troponin I 0.01 ng/mL (0.01-0.05) 01/31/18 13:30 Total Protein 6.6 gm/dL (6.0-8.3) 01/31/18 13:30 Albumin 3.5 gm/dL (3.7-5.3) L 01/31/18 13:30 Globulin 3.1 gm/dL 01/31/18 13:30 Albumin/Globulin Ratio 1.1 (1.0-1.8) 01/31/18 13:30 Triglycerides 111 mg/dL (<150) 01/31/18 13:30 Cholesterol 191 mg/dL (<200) 01/31/18 13:30 LDL Cholesterol Direct 91 mg/dL (75-193) 01/31/18 13:30 HDL Cholesterol 76 mg/dL (23-92) 01/31/18 13:30 TSH 3.99 uIU/ml (0.34-5.60) 01/31/18 13:30 Urine Source CLEAN C 01/31/18 14:00 Urine Color YELLOW 01/31/18 14:00 Urine Clarity HAZY (CLEAR) 01/31/18 14:00 Urine pH 6.0 (4.6 - 8.0) 01/31/18 14:00 Ur Specific [place] 1.010 (1.005-1.030) 01/31/18 14:00 Urine Protein NEGATIVE mg/dL (NEGATIVE) 01/31/18 14:00 Urine Glucose (UA) NEGATIVE mg/dL (NEGATIVE) 01/31/18 14:00 Urine Ketones NEGATIVE mg/dL (NEGATIVE) 01/31/18 14:00 Urine Blood SMALL (NEGATIVE) H 01/31/18 14:00 Urine Nitrate POSITIVE (NEGATIVE) H 01/31/18 14:00 Urine Bilirubin NEGATIVE (NEGATIVE) 01/31/18 14:00 Urine Urobilinogen 0.2 E.U./dL (0.2 - 1.0) 01/31/18 14:00 Ur Leukocyte Esterase MODERATE (NEGATIVE) H 01/31/18 14:00 Urine RBC 2-5 /hpf (0-5) 01/31/18 14:00 Urine WBC 6-10 /hpf (0-5) H 01/31/18 14:00 Ur Epithelial Cells MODERATE /lpf (FEW) 01/31/18 14:00 Urine Bacteria 4+ /hpf (NONE SEEN) H 01/31/18 14:00 Salicylates < 25.0 mg/L (30.0-100.0) L 01/31/18 13:30 Urine Opiates Screen NEGATIVE (NEGATIVE) 01/31/18 14:00 Urine Methadone Screen NEGATIVE (NEGATIVE) 01/31/18 14:00 Acetaminophen < 10.0 ug/mL (10.0-30.0) L 01/31/18 13:30 Ur Barbiturates Screen NEGATIVE (NEGATIVE) 01/31/18 14:00 Ur Tricyclics Screen POSITIVE (NEGATIVE) H 01/31/18 14:00 Ur Phencyclidine Scrn NEGATIVE (NEGATIVE) 01/31/18 14:00 Amphetamines Screen NEGATIVE (NEGATIVE) 01/31/18 14:00 U Methamphetamines Scrn NEGATIVE (NEGATIVE) 01/31/18 14:00 U Benzodiazepines Scrn NEGATIVE (NEGATIVE) 01/31/18 14:00 U Cocaine Metab Screen NEGATIVE (NEGATIVE) 01/31/18 14:00 U Cannabinoids Screen NEGATIVE (NEGATIVE) 01/31/18 14:00 Ethyl Alcohol < 10 mg/dL (0-10) 01/31/18 13:30 RPR NONREACTIVE (NONREACTIVE) 01/31/18 13:30 - Physical Exam Vitals and I&O: Vital Signs Temp 98.4 F 02/15/18 14:00 Pulse 85 02/15/18 14:00 Resp 18 02/15/18 14:00 BP 120/80 02/15/18 14:00 Pulse Ox 97 02/15/18 14:00 Intake & Output 02/15/18 02/15/18 02/16/18 06:59 18:59 06:59 Intake Total 120 1200 Balance 120 1200 Intake: Oral 120 1200 Other: # Voids 3 # Bowel Movements 0 1 Active Medications: Current Medications Acetaminophen (Tylenol) 650 mg PO Q4HR PRN PRN Reason: Mild Pain / Temp above 100 Stop: 04/01/18 16:55 Al Hydrox/Mg Hydrox/Simethicone (Maalox) 30 ml PO Q4HR PRN PRN Reason: GI DISTRESS Stop: 04/01/18 16:55 Benztropine Mesylate (Cogentin) 2 mg PO BID [facility] Stop: 04/02/18 08:59 Last Admin: 02/15/18 16:58 Dose: 2 mg Carbamazepine (Tegretol) 400 mg PO BID [facility]; Protocol Stop: 04/02/18 08:59 Last Admin: 02/15/18 16:58 Dose: 400 mg Divalproex Sodium (Depakote Dr) 250 mg PO TID [facility]; Protocol Stop: 04/01/18 20:59 Last Admin: 02/15/18 13:44 Dose: 250 mg Docusate Sodium (Colace) 250 mg PO DAILY [facility] Stop: 04/02/18 08:59 Last Admin: 02/15/18 08:41 Dose: 250 mg Fludrocortisone Acetate (Florinef) 0.1 mg PO BID [facility] Stop: 04/02/18 08:59 Last Admin: 02/15/18 16:58 Dose: 0.1 mg Haloperidol Lactate (Haldol Concentrate 10mg/5ml Susp) 5 mg PO BID [facility]; Protocol Stop: 04/16/18 16:59 Last Admin: 02/15/18 16:57 Dose: 5 mg Lactobacillus Rhamnosus (Culturelle 15b) 1 each PO DAILY [facility] Stop: 04/04/18 08:59 Last Admin: 02/15/18 08:41 Dose: 1 each Levetiracetam (Keppra) 500 mg PO BID [facility] Stop: 04/02/18 08:59 Last Admin: 02/15/18 16:58 Dose: 500 mg Levothyroxine Sodium (Synthroid) 0.15 mg PO QDAC [facility] Stop: 04/02/18 07:29 Last Admin: 02/15/18 06:36 Dose: 0.15 mg Lorazepam (Ativan) 0.5 mg PO Q6HR PRN; Protocol PRN Reason: Agitation Stop: 04/01/18 17:03 Last Admin: 02/15/18 08:41 Dose: 0.5 mg Magnesium Hydroxide (Milk Of Magnesia) 30 ml PO HS PRN PRN Reason: Constipation Magnesium Hydroxide (Milk Of Magnesia) 30 ml PO HS PRN PRN Reason: Constipation Stop: 04/01/18 17:46 Miscellaneous (Probiotic Screen) 1 ea MC PRN PRN PRN Reason: PROTOCOL Stop: 04/03/18 12:14 Multivitamins/Vitamin C (Theragran) 1 tab PO DAILY [facility] Stop: 04/02/18 08:59 Last Admin: 02/15/18 08:41 Dose: 1 tab Quetiapine Fumarate (Seroquel) 50 mg PO BID [facility]; Protocol Stop: 04/06/18 16:59 Last Admin: 02/15/18 16:58 Dose: 50 mg Quetiapine Fumarate 300 mg/ (Quetiapine Fumarate 400 mg) 700 mg PO HS [facility] Stop: 04/11/18 20:59 Last Admin: 02/14/18 20:42 Dose: 700 mg Senna (Senna) 8.6 mg PO HS [facility] Stop: 04/01/18 20:59 Last Admin: 02/14/18 20:42 Dose: 8.6 mg Tolterodine Tartrate (Detrol) 2 mg PO BID [facility] Stop: 04/02/18 08:59 Last Admin: 02/15/18 16:59 Dose: 2 mg Zolpidem Tartrate (Ambien) 5 mg PO HS PRN PRN Reason: Insomnia Stop: 04/01/18 16:55 Last Admin: 02/12/18 21:23 Dose: 5 mg General: No acute distress HEENT: Atraumatic, PERRLA, EOMI Neck: Supple, JVD, Thyromegaly Cardiovascular: Regular rate, Normal S1, Normal S2 Lungs: Clear to auscultation Abdomen: Bowel sounds, Soft Assessment/Plan - Assessment Assessment: 1.UTI. 2.SEIZURE DISORDERED. 3.HYPOTHYROIDISM. 4.DEMENTIA. - Plan Plan: continue current treatment Nutritional Asmnt/Malnutr-PDOC - Dietary Evaluation Malnutrition Findings (Please click <Entered> for more info): Nutritional Asmnt/Malnutrition Start: 02/06/18 14: 31 Text: Status: Complete Freq: Protocol: Document 02/06/18 14:32 LCHENG (Rec: 02/06/18 14:44 [email or web address]) Nutritional Asmnt/Malnutrition Patient General Information Nutritional Screening Low Risk Diagnosis psychosis Pertinent Medical Hx/Surgical Hx hypothyroidism, seizure disorder, psychosis, dementia Subjective Information Per EMR, PO intake 100%. Pt tolerated regular diet Current Diet Order/ Nutrition Support regular Pertinent Medications colace, culturelle, synthroid, theragran, seroquel, senna Pertinent Labs 01/31 alb 3.5 Nutritional Hx/Data Height 1.7 m Height (Calculated Centimeters) 170.2 Current Weight (lbs) 63.503 kg Weight (Calculated Kilograms) 63.5 Weight (Calculated Grams) 35448.9 [place] Body Weight 135 Body Mass Index (BMI) 21.9 Weight Status Approriate GI Symptoms GI Symptoms None Last BM 02/05 Difficult in: None Skin Integrity/Comment: intact Current %PO Good (75-100%) Estimated Nutritional Goals BEE in Kcals: Using Current wt Calories/Kcals/Kg 25-30 Kcals Calculated 1811-9228 Protein: Using Current wt Protein g/k Protein Calculated 64 Fluid: ml 1600-1920ml (1m/kcal) Nutritional Problem No current Nutrition Prob Problem N/A Malnutrition Alert Is there a minimum of two criteria No selected? Query Text:Check all the applicable criteria. A minimum of two criteria are recommended for diagnosis of either severe or non-severe malnutrition. Malnutrition Related to Morbid Obesity Malnutrition related to morbid obesity No Intervention/Recommendation Comments 1. Continue with regular diet as ordered. 2. Monitor PO intake, wt, labs and skin integrity 3. F/U as low risk in 7 days, 02/13 Expected Outcomes/Goals Expected Outcomes/Goals 1. PO intake to meet at least 75% of nutritional needs. 2. Wt stability, skin to remain intact, labs to approach WNL.
--- NOTE | 2018-02-15 20:13 | Progress Notes ---
DATE: 02/15/2018 SUBJECTIVE: The patient remains bizarre, delusional, forgetful, sometimes impulsive, trying to hit other patients, very intrusive, disheveled, unkempt, talking about going to a ranch, living on a ranch, but she does not know the address of the ranch, asking me to associate the address of the ranch with her date of . The patient bizarre, odd, labile. She is taking her medications, recent dose increase of Haldol. No side effects, no EPS. MEDICATIONS: Reviewed. ASSESSMENT: The patient bizarre, still psychotic. PLAN: We will increase Haldol dosing today. Given her ongoing symptoms she is not safe for discharge at this time. JOB# [id number]
[2018-02-15] MEDS: QUETIAPINE FUMARATE PO SCH (20:48)
[2018-02-16] MEDS: Levothyroxine 0.075 Mg Tab PO SCH (06:44)
[2018-02-16] MEDS: Haldol Oral Sol.(concentrate) 10 mg/5 mL Udc PO SCH ×2 (08:48→16:48)
[2018-02-16] MEDS: Multivitamin Tab PO SCH (08:49)
[2018-02-16] MEDS: Lactobacillus Rhamnosus GG 15 Billion CFU CAP.SPRINK PO SCH (08:49)
[2018-02-16] MEDS: Benztropine 1 MG TAB PO SCH ×2 (08:50→16:48)
--- NOTE | 2018-02-16 13:29 | Progress Notes ---
DATE: 02/16/2018 Case was discussed with staff of the patient, reviewed records. This is a 62-year-old female who was admitted on the 03/31/2218 because of agitation, hostile behavior for a few days prior to admission. I believe one of the nurses her daughter. She believes that this is a May 19, confused. She was a poor historian, unable to make safe plan for self-care, irritable, demanding is conserved unable to make safe plan for self-care. She is compliant with the medication, no side effect. She is on Haldol 5 mg twice a day, Depakote 250 mg 3 times a day. No side effects from the medication, no sedation, no nausea, no extrapyramidal symptoms. Also, she is on Seroquel 50 mg twice a day and 700 mg at bedtime and we will continue to work with the patient in group therapy, milieu therapy, adjust the medication as needed. JOB# [id number]
--- NOTE | 2018-02-16 20:21 | General Progress Note ---
Subjective - Review of Systems Service Date: 02/16/18 Subjective: resting comfortably no distress Objective - Results Result Diagrams: 01/31/18 13:30 01/31/18 13:30 Recent Labs: Laboratory Last Values WBC 5.2 Th/cmm (4.8-10.8) 01/31/18 13:30 RBC 3.70 Mil/cmm (3.80-5.10) L 01/31/18 13:30 Hgb 12.0 gm/dL (12-16) 01/31/18 13:30 Hct 35.2 % (41.0-60) L 01/31/18 13:30 MCV 95.0 fl (81-100) 01/31/18 13:30 MCH 32.5 pg (27.0-31.0) H 01/31/18 13:30 MCHC Differential 34.2 pg (28.0-36.0) 01/31/18 13:30 RDW 13.1 % (11.5-20.0) 01/31/18 13:30 Plt Count 202 Th/cmm (150-400) 01/31/18 13:30 MPV 6.7 fl 01/31/18 13:30 Neutrophils % 57.8 % (40.0-80.0) 01/31/18 13:30 Lymphocytes % 31.5 % (20.0-50.0) 01/31/18 13:30 Monocytes % 8.7 % (2.0-10.0) 01/31/18 13:30 Eosinophils % 1.1 % (0.0-5.0) 01/31/18 13:30 Basophils % 0.9 % (0.0-2.0) 01/31/18 13:30 Sodium 137 mEq/L (136-145) 01/31/18 13:30 Potassium 4.1 mEq/L (3.5-5.1) 01/31/18 13:30 Chloride 104 mEq/L (98-107) 01/31/18 13:30 Carbon Dioxide 28.3 mEq/L (21.0-31.0) 01/31/18 13:30 Anion Gap 8.8 (7.0-16.0) 01/31/18 13:30 BUN 25 mg/dL (7-25) 01/31/18 13:30 Creatinine 1.1 mg/dL (0.6-1.2) 01/31/18 13:30 Est GFR ( Amer) > 60.0 ml/min (>90) 01/31/18 13:30 Est GFR (Non-Af Amer) 53.7 ml/min 01/31/18 13:30 BUN/Creatinine Ratio 22.7 01/31/18 13:30 Glucose 92 mg/dL (70-105) 01/31/18 13:30 Calcium 9.1 mg/dL (8.6-10.3) 01/31/18 13:30 Total Bilirubin 0.3 mg/dL (0.3-1.0) 01/31/18 13:30 AST 18 U/L (13-39) 01/31/18 13:30 ALT 12 U/L (7-52) 01/31/18 13:30 Alkaline Phosphatase 68 U/L (34-104) 01/31/18 13:30 Troponin I 0.01 ng/mL (0.01-0.05) 01/31/18 13:30 Total Protein 6.6 gm/dL (6.0-8.3) 01/31/18 13:30 Albumin 3.5 gm/dL (3.7-5.3) L 01/31/18 13:30 Globulin 3.1 gm/dL 01/31/18 13:30 Albumin/Globulin Ratio 1.1 (1.0-1.8) 01/31/18 13:30 Triglycerides 111 mg/dL (<150) 01/31/18 13:30 Cholesterol 191 mg/dL (<200) 01/31/18 13:30 LDL Cholesterol Direct 91 mg/dL (75-193) 01/31/18 13:30 HDL Cholesterol 76 mg/dL (23-92) 01/31/18 13:30 TSH 3.99 uIU/ml (0.34-5.60) 01/31/18 13:30 Urine Source CLEAN C 01/31/18 14:00 Urine Color YELLOW 01/31/18 14:00 Urine Clarity HAZY (CLEAR) 01/31/18 14:00 Urine pH 6.0 (4.6 - 8.0) 01/31/18 14:00 Ur Specific [place] 1.010 (1.005-1.030) 01/31/18 14:00 Urine Protein NEGATIVE mg/dL (NEGATIVE) 01/31/18 14:00 Urine Glucose (UA) NEGATIVE mg/dL (NEGATIVE) 01/31/18 14:00 Urine Ketones NEGATIVE mg/dL (NEGATIVE) 01/31/18 14:00 Urine Blood SMALL (NEGATIVE) H 01/31/18 14:00 Urine Nitrate POSITIVE (NEGATIVE) H 01/31/18 14:00 Urine Bilirubin NEGATIVE (NEGATIVE) 01/31/18 14:00 Urine Urobilinogen 0.2 E.U./dL (0.2 - 1.0) 01/31/18 14:00 Ur Leukocyte Esterase MODERATE (NEGATIVE) H 01/31/18 14:00 Urine RBC 2-5 /hpf (0-5) 01/31/18 14:00 Urine WBC 6-10 /hpf (0-5) H 01/31/18 14:00 Ur Epithelial Cells MODERATE /lpf (FEW) 01/31/18 14:00 Urine Bacteria 4+ /hpf (NONE SEEN) H 01/31/18 14:00 Salicylates < 25.0 mg/L (30.0-100.0) L 01/31/18 13:30 Urine Opiates Screen NEGATIVE (NEGATIVE) 01/31/18 14:00 Urine Methadone Screen NEGATIVE (NEGATIVE) 01/31/18 14:00 Acetaminophen < 10.0 ug/mL (10.0-30.0) L 01/31/18 13:30 Ur Barbiturates Screen NEGATIVE (NEGATIVE) 01/31/18 14:00 Ur Tricyclics Screen POSITIVE (NEGATIVE) H 01/31/18 14:00 Ur Phencyclidine Scrn NEGATIVE (NEGATIVE) 01/31/18 14:00 Amphetamines Screen NEGATIVE (NEGATIVE) 01/31/18 14:00 U Methamphetamines Scrn NEGATIVE (NEGATIVE) 01/31/18 14:00 U Benzodiazepines Scrn NEGATIVE (NEGATIVE) 01/31/18 14:00 U Cocaine Metab Screen NEGATIVE (NEGATIVE) 01/31/18 14:00 U Cannabinoids Screen NEGATIVE (NEGATIVE) 01/31/18 14:00 Ethyl Alcohol < 10 mg/dL (0-10) 01/31/18 13:30 RPR NONREACTIVE (NONREACTIVE) 01/31/18 13:30 - Physical Exam Vitals and I&O: Vital Signs Temp 97.6 F 02/16/18 14:00 Pulse 71 02/16/18 14:00 Resp 20 02/16/18 14:00 BP 146/93 02/16/18 14:00 Pulse Ox 97 02/16/18 14:00 Intake & Output 02/16/18 02/16/18 02/17/18 06:59 18:59 06:59 Intake Total 220 1000 Balance 220 1000 Intake: Oral 220 1000 Other: # Voids 3 4 # Bowel Movements 1 Active Medications: Current Medications Acetaminophen (Tylenol) 650 mg PO Q4HR PRN PRN Reason: Mild Pain / Temp above 100 Stop: 04/01/18 16:55 Al Hydrox/Mg Hydrox/Simethicone (Maalox) 30 ml PO Q4HR PRN PRN Reason: GI DISTRESS Stop: 04/01/18 16:55 Benztropine Mesylate (Cogentin) 2 mg PO BID [facility] Stop: 04/02/18 08:59 Last Admin: 02/16/18 16:48 Dose: 2 mg Carbamazepine (Tegretol) 400 mg PO BID [facility]; Protocol Stop: 04/02/18 08:59 Last Admin: 02/16/18 16:49 Dose: 400 mg Divalproex Sodium (Depakote Dr) 250 mg PO TID [facility]; Protocol Stop: 04/01/18 20:59 Last Admin: 02/16/18 14:02 Dose: 250 mg Docusate Sodium (Colace) 250 mg PO DAILY [facility] Stop: 04/02/18 08:59 Last Admin: 02/16/18 08:50 Dose: 250 mg Fludrocortisone Acetate (Florinef) 0.1 mg PO BID [facility] Stop: 04/02/18 08:59 Last Admin: 02/16/18 16:57 Dose: 0.1 mg Haloperidol Lactate (Haldol Concentrate 10mg/5ml Susp) 5 mg PO BID [facility]; Protocol Stop: 04/16/18 16:59 Last Admin: 02/16/18 16:48 Dose: 5 mg Lactobacillus Rhamnosus (Culturelle 15b) 1 each PO DAILY [facility] Stop: 04/04/18 08:59 Last Admin: 02/16/18 08:49 Dose: 1 each Levetiracetam (Keppra) 500 mg PO BID [facility] Stop: 04/02/18 08:59 Last Admin: 02/16/18 16:49 Dose: 500 mg Levothyroxine Sodium (Synthroid) 0.15 mg PO QDAC [facility] Stop: 04/02/18 07:29 Last Admin: 02/16/18 06:44 Dose: 0.15 mg Lorazepam (Ativan) 0.5 mg PO Q6HR PRN; Protocol PRN Reason: Agitation Stop: 04/01/18 17:03 Last Admin: 02/16/18 16:48 Dose: 0.5 mg Magnesium Hydroxide (Milk Of Magnesia) 30 ml PO HS PRN PRN Reason: Constipation Magnesium Hydroxide (Milk Of Magnesia) 30 ml PO HS PRN PRN Reason: Constipation Stop: 04/01/18 17:46 Miscellaneous (Probiotic Screen) 1 ea MC PRN PRN PRN Reason: PROTOCOL Stop: 04/03/18 12:14 Multivitamins/Vitamin C (Theragran) 1 tab PO DAILY [facility] Stop: 04/02/18 08:59 Last Admin: 02/16/18 08:49 Dose: 1 tab Quetiapine Fumarate (Seroquel) 50 mg PO BID [facility]; Protocol Stop: 04/06/18 16:59 Last Admin: 02/16/18 16:48 Dose: 50 mg Quetiapine Fumarate 300 mg/ (Quetiapine Fumarate 400 mg) 700 mg PO HS [facility] Stop: 04/11/18 20:59 Last Admin: 02/15/18 20:48 Dose: 700 mg Senna (Senna) 8.6 mg PO HS [facility] Stop: 04/01/18 20:59 Last Admin: 02/15/18 20:48 Dose: 8.6 mg Tolterodine Tartrate (Detrol) 2 mg PO BID [facility] Stop: 04/02/18 08:59 Last Admin: 02/16/18 17:15 Dose: 2 mg Zolpidem Tartrate (Ambien) 5 mg PO HS PRN PRN Reason: Insomnia Stop: 04/01/18 16:55 Last Admin: 02/12/18 21:23 Dose: 5 mg General: No acute distress HEENT: Atraumatic, PERRLA, EOMI Neck: Supple, JVD, Thyromegaly Cardiovascular: Regular rate, Normal S1, Normal S2 Lungs: Clear to auscultation Abdomen: Bowel sounds, Soft Assessment/Plan - Assessment Assessment: 1.UTI. 2.SEIZURE DISORDERED. 3.HYPOTHYROIDISM. 4.DEMENTIA. - Plan Plan: continue current treatment Nutritional Asmnt/Malnutr-PDOC - Dietary Evaluation Malnutrition Findings (Please click <Entered> for more info): Nutritional Asmnt/Malnutrition Start: 02/06/18 14: 31 Text: Status: Complete Freq: Protocol: Document 02/06/18 14:32 LCHENG (Rec: 02/06/18 14:44 [email or web address]) Nutritional Asmnt/Malnutrition Patient General Information Nutritional Screening Low Risk Diagnosis psychosis Pertinent Medical Hx/Surgical Hx hypothyroidism, seizure disorder, psychosis, dementia Subjective Information Per EMR, PO intake 100%. Pt tolerated regular diet Current Diet Order/ Nutrition Support regular Pertinent Medications colace, culturelle, synthroid, theragran, seroquel, senna Pertinent Labs 01/31 alb 3.5 Nutritional Hx/Data Height 1.7 m Height (Calculated Centimeters) 170.2 Current Weight (lbs) 63.503 kg Weight (Calculated Kilograms) 63.5 Weight (Calculated Grams) 78142.9 [place] Body Weight 135 Body Mass Index (BMI) 21.9 Weight Status Approriate GI Symptoms GI Symptoms None Last BM 02/05 Difficult in: None Skin Integrity/Comment: intact Current %PO Good (75-100%) Estimated Nutritional Goals BEE in Kcals: Using Current wt Calories/Kcals/Kg 25-30 Kcals Calculated 0554-2584 Protein: Using Current wt Protein g/k Protein Calculated 64 Fluid: ml 1600-1920ml (1m/kcal) Nutritional Problem No current Nutrition Prob Problem N/A Malnutrition Alert Is there a minimum of two criteria No selected? Query Text:Check all the applicable criteria. A minimum of two criteria are recommended for diagnosis of either severe or non-severe malnutrition. Malnutrition Related to Morbid Obesity Malnutrition related to morbid obesity No Intervention/Recommendation Comments 1. Continue with regular diet as ordered. 2. Monitor PO intake, wt, labs and skin integrity 3. F/U as low risk in 7 days, 02/13 Expected Outcomes/Goals Expected Outcomes/Goals 1. PO intake to meet at least 75% of nutritional needs. 2. Wt stability, skin to remain intact, labs to approach WNL.
[2018-02-16] MEDS: QUETIAPINE FUMARATE PO SCH (20:40)
[2018-02-17] MEDS: Levothyroxine 0.075 Mg Tab PO SCH (06:36)
[2018-02-17] MEDS: Lactobacillus Rhamnosus GG 15 Billion CFU CAP.SPRINK PO SCH (09:11)
[2018-02-17] MEDS: Benztropine 1 MG TAB PO SCH ×2 (09:13→17:48)
[2018-02-17] MEDS: Multivitamin Tab PO SCH (09:13)
[2018-02-17] MEDS: Haldol Oral Sol.(concentrate) 10 mg/5 mL Udc PO SCH ×2 (09:16→17:49)
--- NOTE | 2018-02-17 20:30 | General Progress Note ---
Subjective - Review of Systems Service Date: 02/17/18 Subjective: resting comfortably no distress Objective - Results Result Diagrams: 01/31/18 13:30 01/31/18 13:30 Recent Labs: Laboratory Last Values WBC 5.2 Th/cmm (4.8-10.8) 01/31/18 13:30 RBC 3.70 Mil/cmm (3.80-5.10) L 01/31/18 13:30 Hgb 12.0 gm/dL (12-16) 01/31/18 13:30 Hct 35.2 % (41.0-60) L 01/31/18 13:30 MCV 95.0 fl (81-100) 01/31/18 13:30 MCH 32.5 pg (27.0-31.0) H 01/31/18 13:30 MCHC Differential 34.2 pg (28.0-36.0) 01/31/18 13:30 RDW 13.1 % (11.5-20.0) 01/31/18 13:30 Plt Count 202 Th/cmm (150-400) 01/31/18 13:30 MPV 6.7 fl 01/31/18 13:30 Neutrophils % 57.8 % (40.0-80.0) 01/31/18 13:30 Lymphocytes % 31.5 % (20.0-50.0) 01/31/18 13:30 Monocytes % 8.7 % (2.0-10.0) 01/31/18 13:30 Eosinophils % 1.1 % (0.0-5.0) 01/31/18 13:30 Basophils % 0.9 % (0.0-2.0) 01/31/18 13:30 Sodium 137 mEq/L (136-145) 01/31/18 13:30 Potassium 4.1 mEq/L (3.5-5.1) 01/31/18 13:30 Chloride 104 mEq/L (98-107) 01/31/18 13:30 Carbon Dioxide 28.3 mEq/L (21.0-31.0) 01/31/18 13:30 Anion Gap 8.8 (7.0-16.0) 01/31/18 13:30 BUN 25 mg/dL (7-25) 01/31/18 13:30 Creatinine 1.1 mg/dL (0.6-1.2) 01/31/18 13:30 Est GFR ( Amer) > 60.0 ml/min (>90) 01/31/18 13:30 Est GFR (Non-Af Amer) 53.7 ml/min 01/31/18 13:30 BUN/Creatinine Ratio 22.7 01/31/18 13:30 Glucose 92 mg/dL (70-105) 01/31/18 13:30 Calcium 9.1 mg/dL (8.6-10.3) 01/31/18 13:30 Total Bilirubin 0.3 mg/dL (0.3-1.0) 01/31/18 13:30 AST 18 U/L (13-39) 01/31/18 13:30 ALT 12 U/L (7-52) 01/31/18 13:30 Alkaline Phosphatase 68 U/L (34-104) 01/31/18 13:30 Troponin I 0.01 ng/mL (0.01-0.05) 01/31/18 13:30 Total Protein 6.6 gm/dL (6.0-8.3) 01/31/18 13:30 Albumin 3.5 gm/dL (3.7-5.3) L 01/31/18 13:30 Globulin 3.1 gm/dL 01/31/18 13:30 Albumin/Globulin Ratio 1.1 (1.0-1.8) 01/31/18 13:30 Triglycerides 111 mg/dL (<150) 01/31/18 13:30 Cholesterol 191 mg/dL (<200) 01/31/18 13:30 LDL Cholesterol Direct 91 mg/dL (75-193) 01/31/18 13:30 HDL Cholesterol 76 mg/dL (23-92) 01/31/18 13:30 TSH 3.99 uIU/ml (0.34-5.60) 01/31/18 13:30 Urine Source CLEAN C 01/31/18 14:00 Urine Color YELLOW 01/31/18 14:00 Urine Clarity HAZY (CLEAR) 01/31/18 14:00 Urine pH 6.0 (4.6 - 8.0) 01/31/18 14:00 Ur Specific [place] 1.010 (1.005-1.030) 01/31/18 14:00 Urine Protein NEGATIVE mg/dL (NEGATIVE) 01/31/18 14:00 Urine Glucose (UA) NEGATIVE mg/dL (NEGATIVE) 01/31/18 14:00 Urine Ketones NEGATIVE mg/dL (NEGATIVE) 01/31/18 14:00 Urine Blood SMALL (NEGATIVE) H 01/31/18 14:00 Urine Nitrate POSITIVE (NEGATIVE) H 01/31/18 14:00 Urine Bilirubin NEGATIVE (NEGATIVE) 01/31/18 14:00 Urine Urobilinogen 0.2 E.U./dL (0.2 - 1.0) 01/31/18 14:00 Ur Leukocyte Esterase MODERATE (NEGATIVE) H 01/31/18 14:00 Urine RBC 2-5 /hpf (0-5) 01/31/18 14:00 Urine WBC 6-10 /hpf (0-5) H 01/31/18 14:00 Ur Epithelial Cells MODERATE /lpf (FEW) 01/31/18 14:00 Urine Bacteria 4+ /hpf (NONE SEEN) H 01/31/18 14:00 Salicylates < 25.0 mg/L (30.0-100.0) L 01/31/18 13:30 Urine Opiates Screen NEGATIVE (NEGATIVE) 01/31/18 14:00 Urine Methadone Screen NEGATIVE (NEGATIVE) 01/31/18 14:00 Acetaminophen < 10.0 ug/mL (10.0-30.0) L 01/31/18 13:30 Ur Barbiturates Screen NEGATIVE (NEGATIVE) 01/31/18 14:00 Ur Tricyclics Screen POSITIVE (NEGATIVE) H 01/31/18 14:00 Ur Phencyclidine Scrn NEGATIVE (NEGATIVE) 01/31/18 14:00 Amphetamines Screen NEGATIVE (NEGATIVE) 01/31/18 14:00 U Methamphetamines Scrn NEGATIVE (NEGATIVE) 01/31/18 14:00 U Benzodiazepines Scrn NEGATIVE (NEGATIVE) 01/31/18 14:00 U Cocaine Metab Screen NEGATIVE (NEGATIVE) 01/31/18 14:00 U Cannabinoids Screen NEGATIVE (NEGATIVE) 01/31/18 14:00 Ethyl Alcohol < 10 mg/dL (0-10) 01/31/18 13:30 RPR NONREACTIVE (NONREACTIVE) 01/31/18 13:30 - Physical Exam Vitals and I&O: Vital Signs Temp 97.2 F 02/17/18 14:00 Pulse 74 02/17/18 14:00 Resp 20 02/17/18 14:00 BP 142/86 02/17/18 14:00 Pulse Ox 98 02/17/18 14:00 Intake & Output 02/17/18 02/17/18 02/18/18 06:59 18:59 06:59 Intake Total 500 1200 Balance 500 1200 Intake: Oral 500 1200 Other: # Voids 4 # Bowel Movements 1 1 Active Medications: Current Medications Acetaminophen (Tylenol) 650 mg PO Q4HR PRN PRN Reason: Mild Pain / Temp above 100 Stop: 04/01/18 16:55 Al Hydrox/Mg Hydrox/Simethicone (Maalox) 30 ml PO Q4HR PRN PRN Reason: GI DISTRESS Stop: 04/01/18 16:55 Benztropine Mesylate (Cogentin) 2 mg PO BID [facility] Stop: 04/02/18 08:59 Last Admin: 02/17/18 17:48 Dose: 2 mg Carbamazepine (Tegretol) 400 mg PO BID [facility]; Protocol Stop: 04/02/18 08:59 Last Admin: 02/17/18 17:48 Dose: 400 mg Divalproex Sodium (Depakote Dr) 250 mg PO TID [facility]; Protocol Stop: 04/01/18 20:59 Last Admin: 02/17/18 14:17 Dose: 250 mg Docusate Sodium (Colace) 250 mg PO DAILY [facility] Stop: 04/02/18 08:59 Last Admin: 02/17/18 09:12 Dose: 250 mg Fludrocortisone Acetate (Florinef) 0.1 mg PO BID [facility] Stop: 04/02/18 08:59 Last Admin: 02/17/18 17:49 Dose: Not Given Haloperidol Lactate (Haldol Concentrate 10mg/5ml Susp) 5 mg PO BID [facility]; Protocol Stop: 04/16/18 16:59 Last Admin: 02/17/18 17:49 Dose: 5 mg Lactobacillus Rhamnosus (Culturelle 15b) 1 each PO DAILY [facility] Stop: 04/04/18 08:59 Last Admin: 02/17/18 09:11 Dose: 1 each Levetiracetam (Keppra) 500 mg PO BID [facility] Stop: 04/02/18 08:59 Last Admin: 02/17/18 17:48 Dose: 500 mg Levothyroxine Sodium (Synthroid) 0.15 mg PO QDAC [facility] Stop: 04/02/18 07:29 Last Admin: 02/17/18 06:36 Dose: 0.15 mg Lorazepam (Ativan) 0.5 mg PO Q6HR PRN; Protocol PRN Reason: Agitation Stop: 04/01/18 17:03 Last Admin: 02/16/18 16:48 Dose: 0.5 mg Magnesium Hydroxide (Milk Of Magnesia) 30 ml PO HS PRN PRN Reason: Constipation Magnesium Hydroxide (Milk Of Magnesia) 30 ml PO HS PRN PRN Reason: Constipation Stop: 04/01/18 17:46 Miscellaneous (Probiotic Screen) 1 ea MC PRN PRN PRN Reason: PROTOCOL Stop: 04/03/18 12:14 Multivitamins/Vitamin C (Theragran) 1 tab PO DAILY [facility] Stop: 04/02/18 08:59 Last Admin: 02/17/18 09:13 Dose: 1 tab Quetiapine Fumarate (Seroquel) 50 mg PO BID [facility]; Protocol Stop: 04/06/18 16:59 Last Admin: 02/17/18 17:47 Dose: 50 mg Quetiapine Fumarate 300 mg/ (Quetiapine Fumarate 400 mg) 700 mg PO HS [facility] Stop: 04/11/18 20:59 Last Admin: 02/16/18 20:40 Dose: 700 mg Senna (Senna) 8.6 mg PO HS [facility] Stop: 04/01/18 20:59 Last Admin: 02/16/18 20:41 Dose: 8.6 mg Tolterodine Tartrate (Detrol) 2 mg PO BID [facility] Stop: 04/02/18 08:59 Last Admin: 02/17/18 17:48 Dose: 2 mg Zolpidem Tartrate (Ambien) 5 mg PO HS PRN PRN Reason: Insomnia Stop: 04/01/18 16:55 Last Admin: 02/12/18 21:23 Dose: 5 mg General: No acute distress HEENT: Atraumatic, PERRLA, EOMI Neck: Supple, JVD, Thyromegaly Cardiovascular: Regular rate, Normal S1, Normal S2 Lungs: Clear to auscultation Abdomen: Bowel sounds, Soft Assessment/Plan - Assessment Assessment: 1.UTI. 2.SEIZURE DISORDERED. 3.HYPOTHYROIDISM. 4.DEMENTIA. - Plan Plan: continue current treatment Nutritional Asmnt/Malnutr-PDOC - Dietary Evaluation Malnutrition Findings (Please click <Entered> for more info): Nutritional Asmnt/Malnutrition Start: 02/06/18 14: 31 Text: Status: Complete Freq: Protocol: Document 02/06/18 14:32 LCHENG (Rec: 02/06/18 14:44 [email or web address]) Nutritional Asmnt/Malnutrition Patient General Information Nutritional Screening Low Risk Diagnosis psychosis Pertinent Medical Hx/Surgical Hx hypothyroidism, seizure disorder, psychosis, dementia Subjective Information Per EMR, PO intake 100%. Pt tolerated regular diet Current Diet Order/ Nutrition Support regular Pertinent Medications colace, culturelle, synthroid, theragran, seroquel, senna Pertinent Labs 01/31 alb 3.5 Nutritional Hx/Data Height 1.7 m Height (Calculated Centimeters) 170.2 Current Weight (lbs) 63.503 kg Weight (Calculated Kilograms) 63.5 Weight (Calculated Grams) 66442.9 [place] Body Weight 135 Body Mass Index (BMI) 21.9 Weight Status Approriate GI Symptoms GI Symptoms None Last BM 02/05 Difficult in: None Skin Integrity/Comment: intact Current %PO Good (75-100%) Estimated Nutritional Goals BEE in Kcals: Using Current wt Calories/Kcals/Kg 25-30 Kcals Calculated 5489-9848 Protein: Using Current wt Protein g/k Protein Calculated 64 Fluid: ml 1600-1920ml (1m/kcal) Nutritional Problem No current Nutrition Prob Problem N/A Malnutrition Alert Is there a minimum of two criteria No selected? Query Text:Check all the applicable criteria. A minimum of two criteria are recommended for diagnosis of either severe or non-severe malnutrition. Malnutrition Related to Morbid Obesity Malnutrition related to morbid obesity No Intervention/Recommendation Comments 1. Continue with regular diet as ordered. 2. Monitor PO intake, wt, labs and skin integrity 3. F/U as low risk in 7 days, 02/13 Expected Outcomes/Goals Expected Outcomes/Goals 1. PO intake to meet at least 75% of nutritional needs. 2. Wt stability, skin to remain intact, labs to approach WNL.
[2018-02-17] MEDS: QUETIAPINE FUMARATE PO SCH (21:14)
--- NOTE | 2018-02-17 21:35 | Progress Notes ---
DATE: 02/17/2018 SUBJECTIVE: Case was discussed with staff of the patient, reviewed records. The patient continues to be confused, intrusive, easily agitated, continues to be delusional. Continues to be paranoid, unable to make safe plan for self-care or participate in a meaningful conversation. She is compliant with the medication with no side effects, no sedation, no nausea, no extrapyramidal symptoms. We will continue to work with the patient in group therapy, milieu therapy, and adjust the medications as needed. JOB# [id number]
[2018-02-18] MEDS: Levothyroxine 0.075 Mg Tab PO SCH (06:39)
[2018-02-18] MEDS: Multivitamin Tab PO SCH (08:40)
[2018-02-18] MEDS: Benztropine 1 MG TAB PO SCH ×2 (08:41→16:35)
[2018-02-18] MEDS: Haldol Oral Sol.(concentrate) 10 mg/5 mL Udc PO SCH ×2 (08:41→16:34)
[2018-02-18] MEDS: Lactobacillus Rhamnosus GG 15 Billion CFU CAP.SPRINK PO SCH (08:41)
--- NOTE | 2018-02-18 10:54 | Progress Notes ---
DATE: 02/18/2018 Dr. Morrison covering for Dr. Licona. SUBJECTIVE: Chart reviewed and the patient interviewed. Also discussed the patient's condition with the staff and reviewed records and labs. The patient's affect is brighter. The patient seems to be slightly calmer and slightly easier to redirect him. He also is still trying to carry on conversation and seems to be less irritable and less agitated. He also is compliant with taking his medications with no side effects of medications. ASSESSMENT: The patient seems to be less irritable and less agitated. TREATMENT PLAN: Continue monitoring his behavior closely and continue adjusting psychotropic medications and to follow up. JOB# [id number]
--- NOTE | 2018-02-18 13:41 | General Progress Note ---
Subjective - Review of Systems Service Date: 02/18/18 Subjective: resting comfortably no distress Objective - Results Result Diagrams: 01/31/18 13:30 01/31/18 13:30 Recent Labs: Laboratory Last Values WBC 5.2 Th/cmm (4.8-10.8) 01/31/18 13:30 RBC 3.70 Mil/cmm (3.80-5.10) L 01/31/18 13:30 Hgb 12.0 gm/dL (12-16) 01/31/18 13:30 Hct 35.2 % (41.0-60) L 01/31/18 13:30 MCV 95.0 fl (81-100) 01/31/18 13:30 MCH 32.5 pg (27.0-31.0) H 01/31/18 13:30 MCHC Differential 34.2 pg (28.0-36.0) 01/31/18 13:30 RDW 13.1 % (11.5-20.0) 01/31/18 13:30 Plt Count 202 Th/cmm (150-400) 01/31/18 13:30 MPV 6.7 fl 01/31/18 13:30 Neutrophils % 57.8 % (40.0-80.0) 01/31/18 13:30 Lymphocytes % 31.5 % (20.0-50.0) 01/31/18 13:30 Monocytes % 8.7 % (2.0-10.0) 01/31/18 13:30 Eosinophils % 1.1 % (0.0-5.0) 01/31/18 13:30 Basophils % 0.9 % (0.0-2.0) 01/31/18 13:30 Sodium 137 mEq/L (136-145) 01/31/18 13:30 Potassium 4.1 mEq/L (3.5-5.1) 01/31/18 13:30 Chloride 104 mEq/L (98-107) 01/31/18 13:30 Carbon Dioxide 28.3 mEq/L (21.0-31.0) 01/31/18 13:30 Anion Gap 8.8 (7.0-16.0) 01/31/18 13:30 BUN 25 mg/dL (7-25) 01/31/18 13:30 Creatinine 1.1 mg/dL (0.6-1.2) 01/31/18 13:30 Est GFR ( Amer) > 60.0 ml/min (>90) 01/31/18 13:30 Est GFR (Non-Af Amer) 53.7 ml/min 01/31/18 13:30 BUN/Creatinine Ratio 22.7 01/31/18 13:30 Glucose 92 mg/dL (70-105) 01/31/18 13:30 Calcium 9.1 mg/dL (8.6-10.3) 01/31/18 13:30 Total Bilirubin 0.3 mg/dL (0.3-1.0) 01/31/18 13:30 AST 18 U/L (13-39) 01/31/18 13:30 ALT 12 U/L (7-52) 01/31/18 13:30 Alkaline Phosphatase 68 U/L (34-104) 01/31/18 13:30 Troponin I 0.01 ng/mL (0.01-0.05) 01/31/18 13:30 Total Protein 6.6 gm/dL (6.0-8.3) 01/31/18 13:30 Albumin 3.5 gm/dL (3.7-5.3) L 01/31/18 13:30 Globulin 3.1 gm/dL 01/31/18 13:30 Albumin/Globulin Ratio 1.1 (1.0-1.8) 01/31/18 13:30 Triglycerides 111 mg/dL (<150) 01/31/18 13:30 Cholesterol 191 mg/dL (<200) 01/31/18 13:30 LDL Cholesterol Direct 91 mg/dL (75-193) 01/31/18 13:30 HDL Cholesterol 76 mg/dL (23-92) 01/31/18 13:30 TSH 3.99 uIU/ml (0.34-5.60) 01/31/18 13:30 Urine Source CLEAN C 01/31/18 14:00 Urine Color YELLOW 01/31/18 14:00 Urine Clarity HAZY (CLEAR) 01/31/18 14:00 Urine pH 6.0 (4.6 - 8.0) 01/31/18 14:00 Ur Specific [place] 1.010 (1.005-1.030) 01/31/18 14:00 Urine Protein NEGATIVE mg/dL (NEGATIVE) 01/31/18 14:00 Urine Glucose (UA) NEGATIVE mg/dL (NEGATIVE) 01/31/18 14:00 Urine Ketones NEGATIVE mg/dL (NEGATIVE) 01/31/18 14:00 Urine Blood SMALL (NEGATIVE) H 01/31/18 14:00 Urine Nitrate POSITIVE (NEGATIVE) H 01/31/18 14:00 Urine Bilirubin NEGATIVE (NEGATIVE) 01/31/18 14:00 Urine Urobilinogen 0.2 E.U./dL (0.2 - 1.0) 01/31/18 14:00 Ur Leukocyte Esterase MODERATE (NEGATIVE) H 01/31/18 14:00 Urine RBC 2-5 /hpf (0-5) 01/31/18 14:00 Urine WBC 6-10 /hpf (0-5) H 01/31/18 14:00 Ur Epithelial Cells MODERATE /lpf (FEW) 01/31/18 14:00 Urine Bacteria 4+ /hpf (NONE SEEN) H 01/31/18 14:00 Salicylates < 25.0 mg/L (30.0-100.0) L 01/31/18 13:30 Urine Opiates Screen NEGATIVE (NEGATIVE) 01/31/18 14:00 Urine Methadone Screen NEGATIVE (NEGATIVE) 01/31/18 14:00 Acetaminophen < 10.0 ug/mL (10.0-30.0) L 01/31/18 13:30 Ur Barbiturates Screen NEGATIVE (NEGATIVE) 01/31/18 14:00 Ur Tricyclics Screen POSITIVE (NEGATIVE) H 01/31/18 14:00 Ur Phencyclidine Scrn NEGATIVE (NEGATIVE) 01/31/18 14:00 Amphetamines Screen NEGATIVE (NEGATIVE) 01/31/18 14:00 U Methamphetamines Scrn NEGATIVE (NEGATIVE) 01/31/18 14:00 U Benzodiazepines Scrn NEGATIVE (NEGATIVE) 01/31/18 14:00 U Cocaine Metab Screen NEGATIVE (NEGATIVE) 01/31/18 14:00 U Cannabinoids Screen NEGATIVE (NEGATIVE) 01/31/18 14:00 Ethyl Alcohol < 10 mg/dL (0-10) 01/31/18 13:30 RPR NONREACTIVE (NONREACTIVE) 01/31/18 13:30 - Physical Exam Vitals and I&O: Vital Signs Temp 96.7 F 02/18/18 06:24 Pulse 79 02/18/18 06:24 Resp 17 02/18/18 06:24 BP 119/67 02/18/18 06:24 Pulse Ox 100 02/18/18 06:24 Intake & Output 02/17/18 02/18/18 02/18/18 18:59 06:59 18:59 Intake Total 1200 Balance 1200 Intake: Oral 1200 Other: # Bowel Movements 1 Active Medications: Current Medications Acetaminophen (Tylenol) 650 mg PO Q4HR PRN PRN Reason: Mild Pain / Temp above 100 Stop: 04/01/18 16:55 Al Hydrox/Mg Hydrox/Simethicone (Maalox) 30 ml PO Q4HR PRN PRN Reason: GI DISTRESS Stop: 04/01/18 16:55 Benztropine Mesylate (Cogentin) 2 mg PO BID [facility] Stop: 04/02/18 08:59 Last Admin: 02/18/18 08:41 Dose: 2 mg Carbamazepine (Tegretol) 400 mg PO BID [facility]; Protocol Stop: 04/02/18 08:59 Last Admin: 02/18/18 08:41 Dose: 400 mg Divalproex Sodium (Depakote Dr) 250 mg PO TID [facility]; Protocol Stop: 04/01/18 20:59 Last Admin: 02/18/18 13:26 Dose: 250 mg Docusate Sodium (Colace) 250 mg PO DAILY [facility] Stop: 04/02/18 08:59 Last Admin: 02/18/18 08:41 Dose: 250 mg Fludrocortisone Acetate (Florinef) 0.1 mg PO BID [facility] Stop: 04/02/18 08:59 Last Admin: 02/17/18 17:49 Dose: Not Given Haloperidol Lactate (Haldol Concentrate 10mg/5ml Susp) 5 mg PO BID [facility]; Protocol Stop: 04/16/18 16:59 Last Admin: 02/18/18 08:41 Dose: 5 mg Lactobacillus Rhamnosus (Culturelle 15b) 1 each PO DAILY [facility] Stop: 04/04/18 08:59 Last Admin: 02/18/18 08:41 Dose: 1 each Levetiracetam (Keppra) 500 mg PO BID [facility] Stop: 04/02/18 08:59 Last Admin: 02/18/18 08:41 Dose: 500 mg Levothyroxine Sodium (Synthroid) 0.15 mg PO QDAC [facility] Stop: 04/02/18 07:29 Last Admin: 02/18/18 06:39 Dose: 0.15 mg Lorazepam (Ativan) 0.5 mg PO Q6HR PRN; Protocol PRN Reason: Agitation Stop: 04/01/18 17:03 Last Admin: 02/16/18 16:48 Dose: 0.5 mg Magnesium Hydroxide (Milk Of Magnesia) 30 ml PO HS PRN PRN Reason: Constipation Magnesium Hydroxide (Milk Of Magnesia) 30 ml PO HS PRN PRN Reason: Constipation Stop: 04/01/18 17:46 Miscellaneous (Probiotic Screen) 1 ea MC PRN PRN PRN Reason: PROTOCOL Stop: 04/03/18 12:14 Multivitamins/Vitamin C (Theragran) 1 tab PO DAILY [facility] Stop: 04/02/18 08:59 Last Admin: 02/18/18 08:40 Dose: 1 tab Quetiapine Fumarate (Seroquel) 50 mg PO BID [facility]; Protocol Stop: 04/06/18 16:59 Last Admin: 02/18/18 08:40 Dose: 50 mg Quetiapine Fumarate 300 mg/ (Quetiapine Fumarate 400 mg) 700 mg PO HS [facility] Stop: 04/11/18 20:59 Last Admin: 02/17/18 21:14 Dose: 700 mg Senna (Senna) 8.6 mg PO HS [facility] Stop: 04/01/18 20:59 Last Admin: 02/17/18 21:14 Dose: 8.6 mg Tolterodine Tartrate (Detrol) 2 mg PO BID [facility] Stop: 04/02/18 08:59 Last Admin: 02/18/18 08:41 Dose: 2 mg Zolpidem Tartrate (Ambien) 5 mg PO HS PRN PRN Reason: Insomnia Stop: 04/01/18 16:55 Last Admin: 02/12/18 21:23 Dose: 5 mg General: No acute distress HEENT: Atraumatic, PERRLA, EOMI Neck: Supple, JVD, Thyromegaly Cardiovascular: Regular rate, Normal S1, Normal S2 Lungs: Clear to auscultation Abdomen: Bowel sounds, Soft Assessment/Plan - Assessment Assessment: 1.UTI. 2.SEIZURE DISORDERED. 3.HYPOTHYROIDISM. 4.DEMENTIA. - Plan Plan: continue current treatment Nutritional Asmnt/Malnutr-PDOC - Dietary Evaluation Malnutrition Findings (Please click <Entered> for more info): Nutritional Asmnt/Malnutrition Start: 02/06/18 14: 31 Text: Status: Complete Freq: Protocol: Document 02/06/18 14:32 LCHENG (Rec: 02/06/18 14:44 [email or web address]) Nutritional Asmnt/Malnutrition Patient General Information Nutritional Screening Low Risk Diagnosis psychosis Pertinent Medical Hx/Surgical Hx hypothyroidism, seizure disorder, psychosis, dementia Subjective Information Per EMR, PO intake 100%. Pt tolerated regular diet Current Diet Order/ Nutrition Support regular Pertinent Medications colace, culturelle, synthroid, theragran, seroquel, senna Pertinent Labs 01/31 alb 3.5 Nutritional Hx/Data Height 1.7 m Height (Calculated Centimeters) 170.2 Current Weight (lbs) 63.503 kg Weight (Calculated Kilograms) 63.5 Weight (Calculated Grams) 31443.9 [place] Body Weight 135 Body Mass Index (BMI) 21.9 Weight Status Approriate GI Symptoms GI Symptoms None Last BM 02/05 Difficult in: None Skin Integrity/Comment: intact Current %PO Good (75-100%) Estimated Nutritional Goals BEE in Kcals: Using Current wt Calories/Kcals/Kg 25-30 Kcals Calculated 4552-2371 Protein: Using Current wt Protein g/k Protein Calculated 64 Fluid: ml 1600-1920ml (1m/kcal) Nutritional Problem No current Nutrition Prob Problem N/A Malnutrition Alert Is there a minimum of two criteria No selected? Query Text:Check all the applicable criteria. A minimum of two criteria are recommended for diagnosis of either severe or non-severe malnutrition. Malnutrition Related to Morbid Obesity Malnutrition related to morbid obesity No Intervention/Recommendation Comments 1. Continue with regular diet as ordered. 2. Monitor PO intake, wt, labs and skin integrity 3. F/U as low risk in 7 days, 02/13 Expected Outcomes/Goals Expected Outcomes/Goals 1. PO intake to meet at least 75% of nutritional needs. 2. Wt stability, skin to remain intact, labs to approach WNL.
[2018-02-18] MEDS: QUETIAPINE FUMARATE PO SCH (21:17)
[2018-02-19] MEDS: Levothyroxine 0.075 Mg Tab PO SCH (06:40)
[2018-02-19] MEDS: Multivitamin Tab PO SCH (08:36)
[2018-02-19] MEDS: Lactobacillus Rhamnosus GG 15 Billion CFU CAP.SPRINK PO SCH (08:37)
[2018-02-19] MEDS: Haldol Oral Sol.(concentrate) 10 mg/5 mL Udc PO SCH ×2 (08:37→16:57)
[2018-02-19] MEDS: Benztropine 1 MG TAB PO SCH ×2 (08:37→16:57)
--- NOTE | 2018-02-19 17:27 | General Progress Note ---
Subjective - Review of Systems Service Date: 02/19/18 Subjective: resting comfortably no distress Objective - Results Result Diagrams: 01/31/18 13:30 01/31/18 13:30 Recent Labs: Laboratory Last Values WBC 5.2 Th/cmm (4.8-10.8) 01/31/18 13:30 RBC 3.70 Mil/cmm (3.80-5.10) L 01/31/18 13:30 Hgb 12.0 gm/dL (12-16) 01/31/18 13:30 Hct 35.2 % (41.0-60) L 01/31/18 13:30 MCV 95.0 fl (81-100) 01/31/18 13:30 MCH 32.5 pg (27.0-31.0) H 01/31/18 13:30 MCHC Differential 34.2 pg (28.0-36.0) 01/31/18 13:30 RDW 13.1 % (11.5-20.0) 01/31/18 13:30 Plt Count 202 Th/cmm (150-400) 01/31/18 13:30 MPV 6.7 fl 01/31/18 13:30 Neutrophils % 57.8 % (40.0-80.0) 01/31/18 13:30 Lymphocytes % 31.5 % (20.0-50.0) 01/31/18 13:30 Monocytes % 8.7 % (2.0-10.0) 01/31/18 13:30 Eosinophils % 1.1 % (0.0-5.0) 01/31/18 13:30 Basophils % 0.9 % (0.0-2.0) 01/31/18 13:30 Sodium 137 mEq/L (136-145) 01/31/18 13:30 Potassium 4.1 mEq/L (3.5-5.1) 01/31/18 13:30 Chloride 104 mEq/L (98-107) 01/31/18 13:30 Carbon Dioxide 28.3 mEq/L (21.0-31.0) 01/31/18 13:30 Anion Gap 8.8 (7.0-16.0) 01/31/18 13:30 BUN 25 mg/dL (7-25) 01/31/18 13:30 Creatinine 1.1 mg/dL (0.6-1.2) 01/31/18 13:30 Est GFR ( Amer) > 60.0 ml/min (>90) 01/31/18 13:30 Est GFR (Non-Af Amer) 53.7 ml/min 01/31/18 13:30 BUN/Creatinine Ratio 22.7 01/31/18 13:30 Glucose 92 mg/dL (70-105) 01/31/18 13:30 Calcium 9.1 mg/dL (8.6-10.3) 01/31/18 13:30 Total Bilirubin 0.3 mg/dL (0.3-1.0) 01/31/18 13:30 AST 18 U/L (13-39) 01/31/18 13:30 ALT 12 U/L (7-52) 01/31/18 13:30 Alkaline Phosphatase 68 U/L (34-104) 01/31/18 13:30 Troponin I 0.01 ng/mL (0.01-0.05) 01/31/18 13:30 Total Protein 6.6 gm/dL (6.0-8.3) 01/31/18 13:30 Albumin 3.5 gm/dL (3.7-5.3) L 01/31/18 13:30 Globulin 3.1 gm/dL 01/31/18 13:30 Albumin/Globulin Ratio 1.1 (1.0-1.8) 01/31/18 13:30 Triglycerides 111 mg/dL (<150) 01/31/18 13:30 Cholesterol 191 mg/dL (<200) 01/31/18 13:30 LDL Cholesterol Direct 91 mg/dL (75-193) 01/31/18 13:30 HDL Cholesterol 76 mg/dL (23-92) 01/31/18 13:30 TSH 3.99 uIU/ml (0.34-5.60) 01/31/18 13:30 Urine Source CLEAN C 01/31/18 14:00 Urine Color YELLOW 01/31/18 14:00 Urine Clarity HAZY (CLEAR) 01/31/18 14:00 Urine pH 6.0 (4.6 - 8.0) 01/31/18 14:00 Ur Specific [place] 1.010 (1.005-1.030) 01/31/18 14:00 Urine Protein NEGATIVE mg/dL (NEGATIVE) 01/31/18 14:00 Urine Glucose (UA) NEGATIVE mg/dL (NEGATIVE) 01/31/18 14:00 Urine Ketones NEGATIVE mg/dL (NEGATIVE) 01/31/18 14:00 Urine Blood SMALL (NEGATIVE) H 01/31/18 14:00 Urine Nitrate POSITIVE (NEGATIVE) H 01/31/18 14:00 Urine Bilirubin NEGATIVE (NEGATIVE) 01/31/18 14:00 Urine Urobilinogen 0.2 E.U./dL (0.2 - 1.0) 01/31/18 14:00 Ur Leukocyte Esterase MODERATE (NEGATIVE) H 01/31/18 14:00 Urine RBC 2-5 /hpf (0-5) 01/31/18 14:00 Urine WBC 6-10 /hpf (0-5) H 01/31/18 14:00 Ur Epithelial Cells MODERATE /lpf (FEW) 01/31/18 14:00 Urine Bacteria 4+ /hpf (NONE SEEN) H 01/31/18 14:00 Salicylates < 25.0 mg/L (30.0-100.0) L 01/31/18 13:30 Urine Opiates Screen NEGATIVE (NEGATIVE) 01/31/18 14:00 Urine Methadone Screen NEGATIVE (NEGATIVE) 01/31/18 14:00 Acetaminophen < 10.0 ug/mL (10.0-30.0) L 01/31/18 13:30 Ur Barbiturates Screen NEGATIVE (NEGATIVE) 01/31/18 14:00 Ur Tricyclics Screen POSITIVE (NEGATIVE) H 01/31/18 14:00 Ur Phencyclidine Scrn NEGATIVE (NEGATIVE) 01/31/18 14:00 Amphetamines Screen NEGATIVE (NEGATIVE) 01/31/18 14:00 U Methamphetamines Scrn NEGATIVE (NEGATIVE) 01/31/18 14:00 U Benzodiazepines Scrn NEGATIVE (NEGATIVE) 01/31/18 14:00 U Cocaine Metab Screen NEGATIVE (NEGATIVE) 01/31/18 14:00 U Cannabinoids Screen NEGATIVE (NEGATIVE) 01/31/18 14:00 Ethyl Alcohol < 10 mg/dL (0-10) 01/31/18 13:30 RPR NONREACTIVE (NONREACTIVE) 01/31/18 13:30 - Physical Exam Vitals and I&O: Vital Signs Temp 98.1 F 02/19/18 14:00 Pulse 84 02/19/18 14:00 Resp 20 02/19/18 14:00 BP 138/64 02/19/18 14:00 Pulse Ox 98 02/19/18 14:00 Intake & Output 02/18/18 02/19/18 02/19/18 18:59 06:59 18:59 Intake Total 1200 Balance 1200 Intake: Oral 1200 Other: # Bowel Movements 1 Active Medications: Current Medications Acetaminophen (Tylenol) 650 mg PO Q4HR PRN PRN Reason: Mild Pain / Temp above 100 Stop: 04/01/18 16:55 Al Hydrox/Mg Hydrox/Simethicone (Maalox) 30 ml PO Q4HR PRN PRN Reason: GI DISTRESS Stop: 04/01/18 16:55 Benztropine Mesylate (Cogentin) 2 mg PO BID [facility] Stop: 04/02/18 08:59 Last Admin: 02/19/18 16:57 Dose: 2 mg Carbamazepine (Tegretol) 400 mg PO BID [facility]; Protocol Stop: 04/02/18 08:59 Last Admin: 02/19/18 16:57 Dose: 400 mg Divalproex Sodium (Depakote Dr) 250 mg PO TID [facility]; Protocol Stop: 04/01/18 20:59 Last Admin: 02/19/18 13:23 Dose: 250 mg Docusate Sodium (Colace) 250 mg PO DAILY [facility] Stop: 04/02/18 08:59 Last Admin: 02/19/18 09:26 Dose: 250 mg Fludrocortisone Acetate (Florinef) 0.1 mg PO BID [facility] Stop: 04/02/18 08:59 Last Admin: 02/19/18 16:57 Dose: Not Given Haloperidol Lactate (Haldol Concentrate 10mg/5ml Susp) 5 mg PO BID [facility]; Protocol Stop: 04/16/18 16:59 Last Admin: 02/19/18 16:57 Dose: 5 mg Lactobacillus Rhamnosus (Culturelle 15b) 1 each PO DAILY [facility] Stop: 04/04/18 08:59 Last Admin: 02/19/18 08:37 Dose: 1 each Levetiracetam (Keppra) 500 mg PO BID [facility] Stop: 04/02/18 08:59 Last Admin: 02/19/18 16:57 Dose: 500 mg Levothyroxine Sodium (Synthroid) 0.15 mg PO QDAC [facility] Stop: 04/02/18 07:29 Last Admin: 02/19/18 06:40 Dose: 0.15 mg Lorazepam (Ativan) 0.5 mg PO Q6HR PRN; Protocol PRN Reason: Agitation Stop: 04/01/18 17:03 Last Admin: 02/19/18 08:37 Dose: 0.5 mg Magnesium Hydroxide (Milk Of Magnesia) 30 ml PO HS PRN PRN Reason: Constipation Magnesium Hydroxide (Milk Of Magnesia) 30 ml PO HS PRN PRN Reason: Constipation Stop: 04/01/18 17:46 Miscellaneous (Probiotic Screen) 1 ea MC PRN PRN PRN Reason: PROTOCOL Stop: 04/03/18 12:14 Multivitamins/Vitamin C (Theragran) 1 tab PO DAILY [facility] Stop: 04/02/18 08:59 Last Admin: 02/19/18 08:36 Dose: 1 tab Quetiapine Fumarate (Seroquel) 50 mg PO BID [facility]; Protocol Stop: 04/06/18 16:59 Last Admin: 02/19/18 16:57 Dose: 50 mg Quetiapine Fumarate 300 mg/ (Quetiapine Fumarate 400 mg) 700 mg PO HS [facility] Stop: 04/11/18 20:59 Last Admin: 02/18/18 21:17 Dose: Not Given Senna (Senna) 8.6 mg PO HS [facility] Stop: 04/01/18 20:59 Last Admin: 02/18/18 21:18 Dose: Not Given Tolterodine Tartrate (Detrol) 2 mg PO BID [facility] Stop: 04/02/18 08:59 Last Admin: 02/19/18 16:56 Dose: 2 mg Zolpidem Tartrate (Ambien) 5 mg PO HS PRN PRN Reason: Insomnia Stop: 04/01/18 16:55 Last Admin: 02/19/18 00:44 Dose: 5 mg General: No acute distress HEENT: Atraumatic, PERRLA, EOMI Neck: Supple, JVD, Thyromegaly Cardiovascular: Regular rate, Normal S1, Normal S2 Lungs: Clear to auscultation Abdomen: Bowel sounds, Soft Assessment/Plan - Assessment Assessment: 1.UTI. 2.SEIZURE DISORDERED. 3.HYPOTHYROIDISM. 4.DEMENTIA. - Plan Plan: continue current treatment Nutritional Asmnt/Malnutr-PDOC - Dietary Evaluation Malnutrition Findings (Please click <Entered> for more info): Nutritional Asmnt/Malnutrition Start: 02/06/18 14: 31 Text: Status: Complete Freq: Protocol: Document 02/06/18 14:32 LCHENG (Rec: 02/06/18 14:44 [email or web address]) Nutritional Asmnt/Malnutrition Patient General Information Nutritional Screening Low Risk Diagnosis psychosis Pertinent Medical Hx/Surgical Hx hypothyroidism, seizure disorder, psychosis, dementia Subjective Information Per EMR, PO intake 100%. Pt tolerated regular diet Current Diet Order/ Nutrition Support regular Pertinent Medications colace, culturelle, synthroid, theragran, seroquel, senna Pertinent Labs 01/31 alb 3.5 Nutritional Hx/Data Height 1.7 m Height (Calculated Centimeters) 170.2 Current Weight (lbs) 63.503 kg Weight (Calculated Kilograms) 63.5 Weight (Calculated Grams) 20531.9 [place] Body Weight 135 Body Mass Index (BMI) 21.9 Weight Status Approriate GI Symptoms GI Symptoms None Last BM 02/05 Difficult in: None Skin Integrity/Comment: intact Current %PO Good (75-100%) Estimated Nutritional Goals BEE in Kcals: Using Current wt Calories/Kcals/Kg 25-30 Kcals Calculated 6868-3407 Protein: Using Current wt Protein g/k Protein Calculated 64 Fluid: ml 1600-1920ml (1m/kcal) Nutritional Problem No current Nutrition Prob Problem N/A Malnutrition Alert Is there a minimum of two criteria No selected? Query Text:Check all the applicable criteria. A minimum of two criteria are recommended for diagnosis of either severe or non-severe malnutrition. Malnutrition Related to Morbid Obesity Malnutrition related to morbid obesity No Intervention/Recommendation Comments 1. Continue with regular diet as ordered. 2. Monitor PO intake, wt, labs and skin integrity 3. F/U as low risk in 7 days, 02/13 Expected Outcomes/Goals Expected Outcomes/Goals 1. PO intake to meet at least 75% of nutritional needs. 2. Wt stability, skin to remain intact, labs to approach WNL.
[2018-02-19] MEDS: QUETIAPINE FUMARATE PO SCH (21:05)
--- NOTE | 2018-02-20 01:54 | Progress Notes ---
DATE: 02/19/2018 SUBJECTIVE: Chart reviewed and the patient interviewed. Also, discussed the patient's condition with the staff and reviewed records and labs. The patient is still in irritable mood and she is still easily agitated. The patient also is still suspicious and is still slightly agitated and needs redirections. The patient also still refuses to take medications at times and she took it yesterday morning, but refused it at night. The patient also seems to be hypersexual and have problem with getting close to men. Otherwise, the patient is slightly easier to redirect her. ASSESSMENT: The patient is still paranoid. TREATMENT PLAN: Continue to monitor her behavior and her condition closely. Also, advised the patient to comply with taking her medications. Also, to work on her irritability and we will continue to follow up. JOB# [id number]
[2018-02-20] MEDS: Levothyroxine 0.075 Mg Tab PO SCH (06:37)
[2018-02-20] MEDS: Lactobacillus Rhamnosus GG 15 Billion CFU CAP.SPRINK PO SCH (09:18)
[2018-02-20] MEDS: Multivitamin Tab PO SCH (09:18)
[2018-02-20] MEDS: Benztropine 1 MG TAB PO SCH ×2 (09:20→16:22)
[2018-02-20] MEDS: Haldol Oral Sol.(concentrate) 10 mg/5 mL Udc PO SCH ×2 (09:20→16:20)
--- NOTE | 2018-02-20 17:18 | General Progress Note ---
Subjective - Review of Systems Service Date: 02/20/18 Subjective: resting comfortably no distress Objective - Results Result Diagrams: 01/31/18 13:30 01/31/18 13:30 Recent Labs: Laboratory Last Values WBC 5.2 Th/cmm (4.8-10.8) 01/31/18 13:30 RBC 3.70 Mil/cmm (3.80-5.10) L 01/31/18 13:30 Hgb 12.0 gm/dL (12-16) 01/31/18 13:30 Hct 35.2 % (41.0-60) L 01/31/18 13:30 MCV 95.0 fl (81-100) 01/31/18 13:30 MCH 32.5 pg (27.0-31.0) H 01/31/18 13:30 MCHC Differential 34.2 pg (28.0-36.0) 01/31/18 13:30 RDW 13.1 % (11.5-20.0) 01/31/18 13:30 Plt Count 202 Th/cmm (150-400) 01/31/18 13:30 MPV 6.7 fl 01/31/18 13:30 Neutrophils % 57.8 % (40.0-80.0) 01/31/18 13:30 Lymphocytes % 31.5 % (20.0-50.0) 01/31/18 13:30 Monocytes % 8.7 % (2.0-10.0) 01/31/18 13:30 Eosinophils % 1.1 % (0.0-5.0) 01/31/18 13:30 Basophils % 0.9 % (0.0-2.0) 01/31/18 13:30 Sodium 137 mEq/L (136-145) 01/31/18 13:30 Potassium 4.1 mEq/L (3.5-5.1) 01/31/18 13:30 Chloride 104 mEq/L (98-107) 01/31/18 13:30 Carbon Dioxide 28.3 mEq/L (21.0-31.0) 01/31/18 13:30 Anion Gap 8.8 (7.0-16.0) 01/31/18 13:30 BUN 25 mg/dL (7-25) 01/31/18 13:30 Creatinine 1.1 mg/dL (0.6-1.2) 01/31/18 13:30 Est GFR ( Amer) > 60.0 ml/min (>90) 01/31/18 13:30 Est GFR (Non-Af Amer) 53.7 ml/min 01/31/18 13:30 BUN/Creatinine Ratio 22.7 01/31/18 13:30 Glucose 92 mg/dL (70-105) 01/31/18 13:30 Calcium 9.1 mg/dL (8.6-10.3) 01/31/18 13:30 Total Bilirubin 0.3 mg/dL (0.3-1.0) 01/31/18 13:30 AST 18 U/L (13-39) 01/31/18 13:30 ALT 12 U/L (7-52) 01/31/18 13:30 Alkaline Phosphatase 68 U/L (34-104) 01/31/18 13:30 Troponin I 0.01 ng/mL (0.01-0.05) 01/31/18 13:30 Total Protein 6.6 gm/dL (6.0-8.3) 01/31/18 13:30 Albumin 3.5 gm/dL (3.7-5.3) L 01/31/18 13:30 Globulin 3.1 gm/dL 01/31/18 13:30 Albumin/Globulin Ratio 1.1 (1.0-1.8) 01/31/18 13:30 Triglycerides 111 mg/dL (<150) 01/31/18 13:30 Cholesterol 191 mg/dL (<200) 01/31/18 13:30 LDL Cholesterol Direct 91 mg/dL (75-193) 01/31/18 13:30 HDL Cholesterol 76 mg/dL (23-92) 01/31/18 13:30 TSH 3.99 uIU/ml (0.34-5.60) 01/31/18 13:30 Urine Source CLEAN C 01/31/18 14:00 Urine Color YELLOW 01/31/18 14:00 Urine Clarity HAZY (CLEAR) 01/31/18 14:00 Urine pH 6.0 (4.6 - 8.0) 01/31/18 14:00 Ur Specific [place] 1.010 (1.005-1.030) 01/31/18 14:00 Urine Protein NEGATIVE mg/dL (NEGATIVE) 01/31/18 14:00 Urine Glucose (UA) NEGATIVE mg/dL (NEGATIVE) 01/31/18 14:00 Urine Ketones NEGATIVE mg/dL (NEGATIVE) 01/31/18 14:00 Urine Blood SMALL (NEGATIVE) H 01/31/18 14:00 Urine Nitrate POSITIVE (NEGATIVE) H 01/31/18 14:00 Urine Bilirubin NEGATIVE (NEGATIVE) 01/31/18 14:00 Urine Urobilinogen 0.2 E.U./dL (0.2 - 1.0) 01/31/18 14:00 Ur Leukocyte Esterase MODERATE (NEGATIVE) H 01/31/18 14:00 Urine RBC 2-5 /hpf (0-5) 01/31/18 14:00 Urine WBC 6-10 /hpf (0-5) H 01/31/18 14:00 Ur Epithelial Cells MODERATE /lpf (FEW) 01/31/18 14:00 Urine Bacteria 4+ /hpf (NONE SEEN) H 01/31/18 14:00 Salicylates < 25.0 mg/L (30.0-100.0) L 01/31/18 13:30 Urine Opiates Screen NEGATIVE (NEGATIVE) 01/31/18 14:00 Urine Methadone Screen NEGATIVE (NEGATIVE) 01/31/18 14:00 Acetaminophen < 10.0 ug/mL (10.0-30.0) L 01/31/18 13:30 Ur Barbiturates Screen NEGATIVE (NEGATIVE) 01/31/18 14:00 Ur Tricyclics Screen POSITIVE (NEGATIVE) H 01/31/18 14:00 Ur Phencyclidine Scrn NEGATIVE (NEGATIVE) 01/31/18 14:00 Amphetamines Screen NEGATIVE (NEGATIVE) 01/31/18 14:00 U Methamphetamines Scrn NEGATIVE (NEGATIVE) 01/31/18 14:00 U Benzodiazepines Scrn NEGATIVE (NEGATIVE) 01/31/18 14:00 U Cocaine Metab Screen NEGATIVE (NEGATIVE) 01/31/18 14:00 U Cannabinoids Screen NEGATIVE (NEGATIVE) 01/31/18 14:00 Ethyl Alcohol < 10 mg/dL (0-10) 01/31/18 13:30 RPR NONREACTIVE (NONREACTIVE) 01/31/18 13:30 - Physical Exam Vitals and I&O: Vital Signs Temp 97.3 F 02/20/18 06:03 Pulse 79 02/20/18 06:03 Resp 20 02/20/18 06:03 BP 131/82 02/20/18 06:03 Pulse Ox 100 02/20/18 06:03 Intake & Output 02/19/18 02/20/18 02/20/18 18:59 06:59 18:59 Intake Total 120 Balance 120 Intake: Oral 120 Other: # Voids 3 3 # Bowel Movements 0 Active Medications: Current Medications Acetaminophen (Tylenol) 650 mg PO Q4HR PRN PRN Reason: Mild Pain / Temp above 100 Stop: 04/01/18 16:55 Al Hydrox/Mg Hydrox/Simethicone (Maalox) 30 ml PO Q4HR PRN PRN Reason: GI DISTRESS Stop: 04/01/18 16:55 Benztropine Mesylate (Cogentin) 2 mg PO BID [facility] Stop: 04/02/18 08:59 Last Admin: 02/20/18 16:22 Dose: 2 mg Carbamazepine (Tegretol) 400 mg PO BID [facility]; Protocol Stop: 04/02/18 08:59 Last Admin: 02/20/18 16:20 Dose: 400 mg Divalproex Sodium (Depakote Dr) 250 mg PO TID [facility]; Protocol Stop: 04/01/18 20:59 Last Admin: 02/20/18 13:30 Dose: 250 mg Docusate Sodium (Colace) 250 mg PO DAILY [facility] Stop: 04/02/18 08:59 Last Admin: 02/20/18 09:19 Dose: Not Given Fludrocortisone Acetate (Florinef) 0.1 mg PO BID [facility] Stop: 04/02/18 08:59 Last Admin: 02/20/18 16:19 Dose: 0.1 mg Haloperidol Lactate (Haldol Concentrate 10mg/5ml Susp) 5 mg PO BID [facility]; Protocol Stop: 04/16/18 16:59 Last Admin: 02/20/18 16:20 Dose: 5 mg Lactobacillus Rhamnosus (Culturelle 15b) 1 each PO DAILY [facility] Stop: 04/04/18 08:59 Last Admin: 02/20/18 09:18 Dose: 1 each Levetiracetam (Keppra) 500 mg PO BID [facility] Stop: 04/02/18 08:59 Last Admin: 02/20/18 16:19 Dose: 500 mg Levothyroxine Sodium (Synthroid) 0.15 mg PO QDAC [facility] Stop: 04/02/18 07:29 Last Admin: 02/20/18 06:37 Dose: 0.15 mg Lorazepam (Ativan) 0.5 mg PO Q6HR PRN; Protocol PRN Reason: Agitation Stop: 04/01/18 17:03 Last Admin: 02/19/18 08:37 Dose: 0.5 mg Magnesium Hydroxide (Milk Of Magnesia) 30 ml PO HS PRN PRN Reason: Constipation Magnesium Hydroxide (Milk Of Magnesia) 30 ml PO HS PRN PRN Reason: Constipation Stop: 04/01/18 17:46 Miscellaneous (Probiotic Screen) 1 ea MC PRN PRN PRN Reason: PROTOCOL Stop: 04/03/18 12:14 Multivitamins/Vitamin C (Theragran) 1 tab PO DAILY [facility] Stop: 04/02/18 08:59 Last Admin: 02/20/18 09:18 Dose: 1 tab Quetiapine Fumarate (Seroquel) 50 mg PO BID [facility]; Protocol Stop: 04/06/18 16:59 Last Admin: 02/20/18 16:19 Dose: 50 mg Quetiapine Fumarate 300 mg/ (Quetiapine Fumarate 400 mg) 700 mg PO HS [facility] Stop: 04/11/18 20:59 Last Admin: 02/19/18 21:05 Dose: 700 mg Senna (Senna) 8.6 mg PO HS [facility] Stop: 04/01/18 20:59 Last Admin: 02/19/18 21:05 Dose: 8.6 mg Tolterodine Tartrate (Detrol) 2 mg PO BID [facility] Stop: 04/02/18 08:59 Last Admin: 02/20/18 16:19 Dose: 2 mg Zolpidem Tartrate (Ambien) 5 mg PO HS PRN PRN Reason: Insomnia Stop: 04/01/18 16:55 Last Admin: 02/19/18 00:44 Dose: 5 mg General: No acute distress HEENT: Atraumatic, PERRLA, EOMI Neck: Supple, JVD, Thyromegaly Cardiovascular: Regular rate, Normal S1, Normal S2 Lungs: Clear to auscultation Abdomen: Bowel sounds, Soft Assessment/Plan - Assessment Assessment: 1.UTI. 2.SEIZURE DISORDERED. 3.HYPOTHYROIDISM. 4.DEMENTIA. - Plan Plan: continue current treatment Nutritional Asmnt/Malnutr-PDOC - Dietary Evaluation Malnutrition Findings (Please click <Entered> for more info): Nutritional Asmnt/Malnutrition Start: 02/06/18 14: 31 Text: Status: Complete Freq: Protocol: Document 02/06/18 14:32 LCHENG (Rec: 02/06/18 14:44 [email or web address]) Nutritional Asmnt/Malnutrition Patient General Information Nutritional Screening Low Risk Diagnosis psychosis Pertinent Medical Hx/Surgical Hx hypothyroidism, seizure disorder, psychosis, dementia Subjective Information Per EMR, PO intake 100%. Pt tolerated regular diet Current Diet Order/ Nutrition Support regular Pertinent Medications colace, culturelle, synthroid, theragran, seroquel, senna Pertinent Labs 01/31 alb 3.5 Nutritional Hx/Data Height 1.7 m Height (Calculated Centimeters) 170.2 Current Weight (lbs) 63.503 kg Weight (Calculated Kilograms) 63.5 Weight (Calculated Grams) 25728.9 [place] Body Weight 135 Body Mass Index (BMI) 21.9 Weight Status Approriate GI Symptoms GI Symptoms None Last BM 02/05 Difficult in: None Skin Integrity/Comment: intact Current %PO Good (75-100%) Estimated Nutritional Goals BEE in Kcals: Using Current wt Calories/Kcals/Kg 25-30 Kcals Calculated 9338-2140 Protein: Using Current wt Protein g/k Protein Calculated 64 Fluid: ml 1600-1920ml (1m/kcal) Nutritional Problem No current Nutrition Prob Problem N/A Malnutrition Alert Is there a minimum of two criteria No selected? Query Text:Check all the applicable criteria. A minimum of two criteria are recommended for diagnosis of either severe or non-severe malnutrition. Malnutrition Related to Morbid Obesity Malnutrition related to morbid obesity No Intervention/Recommendation Comments 1. Continue with regular diet as ordered. 2. Monitor PO intake, wt, labs and skin integrity 3. F/U as low risk in 7 days, 02/13 Expected Outcomes/Goals Expected Outcomes/Goals 1. PO intake to meet at least 75% of nutritional needs. 2. Wt stability, skin to remain intact, labs to approach WNL.
[2018-02-20] MEDS: QUETIAPINE FUMARATE PO SCH (20:28)
[2018-02-21] MEDS: Levothyroxine 0.075 Mg Tab PO SCH (06:45)
[2018-02-21] MEDS: Haldol Oral Sol.(concentrate) 10 mg/5 mL Udc PO SCH ×2 (08:39→16:49)
[2018-02-21] MEDS: Lactobacillus Rhamnosus GG 15 Billion CFU CAP.SPRINK PO SCH (08:39)
[2018-02-21] MEDS: Multivitamin Tab PO SCH (08:39)
[2018-02-21] MEDS: Benztropine 1 MG TAB PO SCH ×2 (08:40→16:50)
--- NOTE | 2018-02-21 16:38 | General Progress Note ---
Subjective - Review of Systems Service Date: 02/21/18 Subjective: resting comfortably no distress Objective - Results Result Diagrams: 01/31/18 13:30 01/31/18 13:30 Recent Labs: Laboratory Last Values WBC 5.2 Th/cmm (4.8-10.8) 01/31/18 13:30 RBC 3.70 Mil/cmm (3.80-5.10) L 01/31/18 13:30 Hgb 12.0 gm/dL (12-16) 01/31/18 13:30 Hct 35.2 % (41.0-60) L 01/31/18 13:30 MCV 95.0 fl (81-100) 01/31/18 13:30 MCH 32.5 pg (27.0-31.0) H 01/31/18 13:30 MCHC Differential 34.2 pg (28.0-36.0) 01/31/18 13:30 RDW 13.1 % (11.5-20.0) 01/31/18 13:30 Plt Count 202 Th/cmm (150-400) 01/31/18 13:30 MPV 6.7 fl 01/31/18 13:30 Neutrophils % 57.8 % (40.0-80.0) 01/31/18 13:30 Lymphocytes % 31.5 % (20.0-50.0) 01/31/18 13:30 Monocytes % 8.7 % (2.0-10.0) 01/31/18 13:30 Eosinophils % 1.1 % (0.0-5.0) 01/31/18 13:30 Basophils % 0.9 % (0.0-2.0) 01/31/18 13:30 Sodium 137 mEq/L (136-145) 01/31/18 13:30 Potassium 4.1 mEq/L (3.5-5.1) 01/31/18 13:30 Chloride 104 mEq/L (98-107) 01/31/18 13:30 Carbon Dioxide 28.3 mEq/L (21.0-31.0) 01/31/18 13:30 Anion Gap 8.8 (7.0-16.0) 01/31/18 13:30 BUN 25 mg/dL (7-25) 01/31/18 13:30 Creatinine 1.1 mg/dL (0.6-1.2) 01/31/18 13:30 Est GFR ( Amer) > 60.0 ml/min (>90) 01/31/18 13:30 Est GFR (Non-Af Amer) 53.7 ml/min 01/31/18 13:30 BUN/Creatinine Ratio 22.7 01/31/18 13:30 Glucose 92 mg/dL (70-105) 01/31/18 13:30 Calcium 9.1 mg/dL (8.6-10.3) 01/31/18 13:30 Total Bilirubin 0.3 mg/dL (0.3-1.0) 01/31/18 13:30 AST 18 U/L (13-39) 01/31/18 13:30 ALT 12 U/L (7-52) 01/31/18 13:30 Alkaline Phosphatase 68 U/L (34-104) 01/31/18 13:30 Troponin I 0.01 ng/mL (0.01-0.05) 01/31/18 13:30 Total Protein 6.6 gm/dL (6.0-8.3) 01/31/18 13:30 Albumin 3.5 gm/dL (3.7-5.3) L 01/31/18 13:30 Globulin 3.1 gm/dL 01/31/18 13:30 Albumin/Globulin Ratio 1.1 (1.0-1.8) 01/31/18 13:30 Triglycerides 111 mg/dL (<150) 01/31/18 13:30 Cholesterol 191 mg/dL (<200) 01/31/18 13:30 LDL Cholesterol Direct 91 mg/dL (75-193) 01/31/18 13:30 HDL Cholesterol 76 mg/dL (23-92) 01/31/18 13:30 TSH 3.99 uIU/ml (0.34-5.60) 01/31/18 13:30 Urine Source CLEAN C 01/31/18 14:00 Urine Color YELLOW 01/31/18 14:00 Urine Clarity HAZY (CLEAR) 01/31/18 14:00 Urine pH 6.0 (4.6 - 8.0) 01/31/18 14:00 Ur Specific [place] 1.010 (1.005-1.030) 01/31/18 14:00 Urine Protein NEGATIVE mg/dL (NEGATIVE) 01/31/18 14:00 Urine Glucose (UA) NEGATIVE mg/dL (NEGATIVE) 01/31/18 14:00 Urine Ketones NEGATIVE mg/dL (NEGATIVE) 01/31/18 14:00 Urine Blood SMALL (NEGATIVE) H 01/31/18 14:00 Urine Nitrate POSITIVE (NEGATIVE) H 01/31/18 14:00 Urine Bilirubin NEGATIVE (NEGATIVE) 01/31/18 14:00 Urine Urobilinogen 0.2 E.U./dL (0.2 - 1.0) 01/31/18 14:00 Ur Leukocyte Esterase MODERATE (NEGATIVE) H 01/31/18 14:00 Urine RBC 2-5 /hpf (0-5) 01/31/18 14:00 Urine WBC 6-10 /hpf (0-5) H 01/31/18 14:00 Ur Epithelial Cells MODERATE /lpf (FEW) 01/31/18 14:00 Urine Bacteria 4+ /hpf (NONE SEEN) H 01/31/18 14:00 Salicylates < 25.0 mg/L (30.0-100.0) L 01/31/18 13:30 Urine Opiates Screen NEGATIVE (NEGATIVE) 01/31/18 14:00 Urine Methadone Screen NEGATIVE (NEGATIVE) 01/31/18 14:00 Acetaminophen < 10.0 ug/mL (10.0-30.0) L 01/31/18 13:30 Ur Barbiturates Screen NEGATIVE (NEGATIVE) 01/31/18 14:00 Ur Tricyclics Screen POSITIVE (NEGATIVE) H 01/31/18 14:00 Ur Phencyclidine Scrn NEGATIVE (NEGATIVE) 01/31/18 14:00 Amphetamines Screen NEGATIVE (NEGATIVE) 01/31/18 14:00 U Methamphetamines Scrn NEGATIVE (NEGATIVE) 01/31/18 14:00 U Benzodiazepines Scrn NEGATIVE (NEGATIVE) 01/31/18 14:00 U Cocaine Metab Screen NEGATIVE (NEGATIVE) 01/31/18 14:00 U Cannabinoids Screen NEGATIVE (NEGATIVE) 01/31/18 14:00 Ethyl Alcohol < 10 mg/dL (0-10) 01/31/18 13:30 RPR NONREACTIVE (NONREACTIVE) 01/31/18 13:30 - Physical Exam Vitals and I&O: Vital Signs Temp 97.4 F 02/21/18 14:00 Pulse 79 02/21/18 14:00 Resp 20 02/21/18 14:00 BP 153/96 02/21/18 14:00 Pulse Ox 99 02/21/18 14:00 Intake & Output 02/20/18 02/21/18 02/21/18 18:59 06:59 18:59 Intake Total 1200 600 Balance 1200 600 Intake: Oral 1200 600 Other: # Voids 4 2 # Bowel Movements 0 1 Active Medications: Current Medications Acetaminophen (Tylenol) 650 mg PO Q4HR PRN PRN Reason: Mild Pain / Temp above 100 Stop: 04/01/18 16:55 Al Hydrox/Mg Hydrox/Simethicone (Maalox) 30 ml PO Q4HR PRN PRN Reason: GI DISTRESS Stop: 04/01/18 16:55 Benztropine Mesylate (Cogentin) 2 mg PO BID [facility] Stop: 04/02/18 08:59 Last Admin: 02/21/18 08:40 Dose: 2 mg Carbamazepine (Tegretol) 400 mg PO BID [facility]; Protocol Stop: 04/02/18 08:59 Last Admin: 02/21/18 08:40 Dose: 400 mg Divalproex Sodium (Depakote Dr) 250 mg PO TID [facility]; Protocol Stop: 04/01/18 20:59 Last Admin: 02/21/18 14:04 Dose: 250 mg Docusate Sodium (Colace) 250 mg PO DAILY [facility] Stop: 04/02/18 08:59 Last Admin: 02/21/18 08:40 Dose: Not Given Fludrocortisone Acetate (Florinef) 0.1 mg PO BID [facility] Stop: 04/02/18 08:59 Last Admin: 02/21/18 08:40 Dose: 0.1 mg Haloperidol Lactate (Haldol Concentrate 10mg/5ml Susp) 5 mg PO BID [facility]; Protocol Stop: 04/16/18 16:59 Last Admin: 02/21/18 08:39 Dose: 5 mg Lactobacillus Rhamnosus (Culturelle 15b) 1 each PO DAILY [facility] Stop: 04/04/18 08:59 Last Admin: 02/21/18 08:39 Dose: 1 each Levetiracetam (Keppra) 500 mg PO BID [facility] Stop: 04/02/18 08:59 Last Admin: 02/21/18 08:39 Dose: 500 mg Levothyroxine Sodium (Synthroid) 0.15 mg PO QDAC [facility] Stop: 04/02/18 07:29 Last Admin: 02/21/18 06:45 Dose: 0.15 mg Lorazepam (Ativan) 0.5 mg PO Q6HR PRN; Protocol PRN Reason: Agitation Stop: 04/01/18 17:03 Last Admin: 02/19/18 08:37 Dose: 0.5 mg Magnesium Hydroxide (Milk Of Magnesia) 30 ml PO HS PRN PRN Reason: Constipation Magnesium Hydroxide (Milk Of Magnesia) 30 ml PO HS PRN PRN Reason: Constipation Stop: 04/01/18 17:46 Miscellaneous (Probiotic Screen) 1 ea MC PRN PRN PRN Reason: PROTOCOL Stop: 04/03/18 12:14 Multivitamins/Vitamin C (Theragran) 1 tab PO DAILY [facility] Stop: 04/02/18 08:59 Last Admin: 02/21/18 08:39 Dose: 1 tab Quetiapine Fumarate (Seroquel) 50 mg PO BID [facility]; Protocol Stop: 04/06/18 16:59 Last Admin: 02/21/18 08:40 Dose: 50 mg Quetiapine Fumarate 300 mg/ (Quetiapine Fumarate 400 mg) 700 mg PO HS [facility] Stop: 04/11/18 20:59 Last Admin: 02/20/18 20:28 Dose: 700 mg Senna (Senna) 8.6 mg PO HS [facility] Stop: 04/01/18 20:59 Last Admin: 02/20/18 20:28 Dose: 8.6 mg Tolterodine Tartrate (Detrol) 2 mg PO BID [facility] Stop: 04/02/18 08:59 Last Admin: 02/21/18 08:40 Dose: 2 mg Zolpidem Tartrate (Ambien) 5 mg PO HS PRN PRN Reason: Insomnia Stop: 04/01/18 16:55 Last Admin: 02/20/18 20:28 Dose: 5 mg General: No acute distress HEENT: Atraumatic, PERRLA, EOMI Neck: Supple, JVD, Thyromegaly Cardiovascular: Regular rate, Normal S1, Normal S2 Lungs: Clear to auscultation Abdomen: Bowel sounds, Soft Assessment/Plan - Assessment Assessment: 1.UTI. 2.SEIZURE DISORDERED. 3.HYPOTHYROIDISM. 4.DEMENTIA. - Plan Plan: continue current treatment Nutritional Asmnt/Malnutr-PDOC - Dietary Evaluation Malnutrition Findings (Please click <Entered> for more info): Nutritional Asmnt/Malnutrition Start: 02/06/18 14: 31 Text: Status: Complete Freq: Protocol: Document 02/06/18 14:32 [email or web address] (Rec: 02/06/18 14:44 [email or web address]) Nutritional Asmnt/Malnutrition Patient General Information Nutritional Screening Low Risk Diagnosis psychosis Pertinent Medical Hx/Surgical Hx hypothyroidism, seizure disorder, psychosis, dementia Subjective Information Per EMR, PO intake 100%. Pt tolerated regular diet Current Diet Order/ Nutrition Support regular Pertinent Medications colace, culturelle, synthroid, theragran, seroquel, senna Pertinent Labs 01/31 alb 3.5 Nutritional Hx/Data Height 1.7 m Height (Calculated Centimeters) 170.2 Current Weight (lbs) 63.503 kg Weight (Calculated Kilograms) 63.5 Weight (Calculated Grams) 46590.9 [place] Body Weight 135 Body Mass Index (BMI) 21.9 Weight Status Approriate GI Symptoms GI Symptoms None Last BM 02/05 Difficult in: None Skin Integrity/Comment: intact Current %PO Good (75-100%) Estimated Nutritional Goals BEE in Kcals: Using Current wt Calories/Kcals/Kg 25-30 Kcals Calculated 1364-0230 Protein: Using Current wt Protein g/k Protein Calculated 64 Fluid: ml 1600-1920ml (1m/kcal) Nutritional Problem No current Nutrition Prob Problem N/A Malnutrition Alert Is there a minimum of two criteria No selected? Query Text:Check all the applicable criteria. A minimum of two criteria are recommended for diagnosis of either severe or non-severe malnutrition. Malnutrition Related to Morbid Obesity Malnutrition related to morbid obesity No Intervention/Recommendation Comments 1. Continue with regular diet as ordered. 2. Monitor PO intake, wt, labs and skin integrity 3. F/U as low risk in 7 days, 02/13 Expected Outcomes/Goals Expected Outcomes/Goals 1. PO intake to meet at least 75% of nutritional needs. 2. Wt stability, skin to remain intact, labs to approach WNL.
--- NOTE | 2018-02-21 18:33 | Progress Notes ---
DATE: 02/20/2018 SUBJECTIVE: The patient is currently in the hospital, still impulsive, unpredictable, bizarre. No safety plan. ____ No safe dispo. The patient bizarre, stating that I am not a doctor and that I have no credentials telling me "Good bye." The patient is telling me that I am not a psychiatrist and I do not have proper credential. The patient with poor dentition and unkempt. ASSESSMENT: The patient is bizarre, symptomatic, psychotic, delusional. PLAN: We will continue to monitor. The patient remains gravely disabled. MEDICATIONS: Reviewed. JOB# [id number]
--- NOTE | 2018-02-21 19:14 | Progress Notes ---
DATE: 02/21/2018 SUBJECTIVE: The patient is currently in the hospital, irritable, agitated, suspicious, bizarre, hearing at me, hypersexual, paranoid, stating that, that is not her name. Staff noting she is mumbling to self, talking to self, concerns about her ability to care for her basic needs. ASSESSMENT: The patient remains symptomatic, bizarre, psychotic, currently on high doses of antipsychotic medications. The patient has been accepted to [place]. We are awaiting further improvement, although this may be the patient's baseline. [facility]# [id number]
[2018-02-21] MEDS: QUETIAPINE FUMARATE PO SCH (20:08)
[2018-02-22] MEDS: Levothyroxine 0.075 Mg Tab PO SCH (06:46)
[2018-02-22] MEDS: Haldol Oral Sol.(concentrate) 10 mg/5 mL Udc PO SCH ×3 (08:44→20:51)
[2018-02-22] MEDS: Lactobacillus Rhamnosus GG 15 Billion CFU CAP.SPRINK PO SCH (08:45)
[2018-02-22] MEDS: Benztropine 1 MG TAB PO SCH ×2 (08:45→17:15)
[2018-02-22] MEDS: Multivitamin Tab PO SCH (08:46)
--- NOTE | 2018-02-22 11:01 | General Progress Note ---
Subjective - Review of Systems Service Date: 02/22/18 Subjective: resting comfortably no distress Objective - Results Result Diagrams: 01/31/18 13:30 01/31/18 13:30 Recent Labs: Laboratory Last Values WBC 5.2 Th/cmm (4.8-10.8) 01/31/18 13:30 RBC 3.70 Mil/cmm (3.80-5.10) L 01/31/18 13:30 Hgb 12.0 gm/dL (12-16) 01/31/18 13:30 Hct 35.2 % (41.0-60) L 01/31/18 13:30 MCV 95.0 fl (81-100) 01/31/18 13:30 MCH 32.5 pg (27.0-31.0) H 01/31/18 13:30 MCHC Differential 34.2 pg (28.0-36.0) 01/31/18 13:30 RDW 13.1 % (11.5-20.0) 01/31/18 13:30 Plt Count 202 Th/cmm (150-400) 01/31/18 13:30 MPV 6.7 fl 01/31/18 13:30 Neutrophils % 57.8 % (40.0-80.0) 01/31/18 13:30 Lymphocytes % 31.5 % (20.0-50.0) 01/31/18 13:30 Monocytes % 8.7 % (2.0-10.0) 01/31/18 13:30 Eosinophils % 1.1 % (0.0-5.0) 01/31/18 13:30 Basophils % 0.9 % (0.0-2.0) 01/31/18 13:30 Sodium 137 mEq/L (136-145) 01/31/18 13:30 Potassium 4.1 mEq/L (3.5-5.1) 01/31/18 13:30 Chloride 104 mEq/L (98-107) 01/31/18 13:30 Carbon Dioxide 28.3 mEq/L (21.0-31.0) 01/31/18 13:30 Anion Gap 8.8 (7.0-16.0) 01/31/18 13:30 BUN 25 mg/dL (7-25) 01/31/18 13:30 Creatinine 1.1 mg/dL (0.6-1.2) 01/31/18 13:30 Est GFR ( Amer) > 60.0 ml/min (>90) 01/31/18 13:30 Est GFR (Non-Af Amer) 53.7 ml/min 01/31/18 13:30 BUN/Creatinine Ratio 22.7 01/31/18 13:30 Glucose 92 mg/dL (70-105) 01/31/18 13:30 Calcium 9.1 mg/dL (8.6-10.3) 01/31/18 13:30 Total Bilirubin 0.3 mg/dL (0.3-1.0) 01/31/18 13:30 AST 18 U/L (13-39) 01/31/18 13:30 ALT 12 U/L (7-52) 01/31/18 13:30 Alkaline Phosphatase 68 U/L (34-104) 01/31/18 13:30 Troponin I 0.01 ng/mL (0.01-0.05) 01/31/18 13:30 Total Protein 6.6 gm/dL (6.0-8.3) 01/31/18 13:30 Albumin 3.5 gm/dL (3.7-5.3) L 01/31/18 13:30 Globulin 3.1 gm/dL 01/31/18 13:30 Albumin/Globulin Ratio 1.1 (1.0-1.8) 01/31/18 13:30 Triglycerides 111 mg/dL (<150) 01/31/18 13:30 Cholesterol 191 mg/dL (<200) 01/31/18 13:30 LDL Cholesterol Direct 91 mg/dL (75-193) 01/31/18 13:30 HDL Cholesterol 76 mg/dL (23-92) 01/31/18 13:30 TSH 3.99 uIU/ml (0.34-5.60) 01/31/18 13:30 Urine Source CLEAN C 01/31/18 14:00 Urine Color YELLOW 01/31/18 14:00 Urine Clarity HAZY (CLEAR) 01/31/18 14:00 Urine pH 6.0 (4.6 - 8.0) 01/31/18 14:00 Ur Specific [place] 1.010 (1.005-1.030) 01/31/18 14:00 Urine Protein NEGATIVE mg/dL (NEGATIVE) 01/31/18 14:00 Urine Glucose (UA) NEGATIVE mg/dL (NEGATIVE) 01/31/18 14:00 Urine Ketones NEGATIVE mg/dL (NEGATIVE) 01/31/18 14:00 Urine Blood SMALL (NEGATIVE) H 01/31/18 14:00 Urine Nitrate POSITIVE (NEGATIVE) H 01/31/18 14:00 Urine Bilirubin NEGATIVE (NEGATIVE) 01/31/18 14:00 Urine Urobilinogen 0.2 E.U./dL (0.2 - 1.0) 01/31/18 14:00 Ur Leukocyte Esterase MODERATE (NEGATIVE) H 01/31/18 14:00 Urine RBC 2-5 /hpf (0-5) 01/31/18 14:00 Urine WBC 6-10 /hpf (0-5) H 01/31/18 14:00 Ur Epithelial Cells MODERATE /lpf (FEW) 01/31/18 14:00 Urine Bacteria 4+ /hpf (NONE SEEN) H 01/31/18 14:00 Salicylates < 25.0 mg/L (30.0-100.0) L 01/31/18 13:30 Urine Opiates Screen NEGATIVE (NEGATIVE) 01/31/18 14:00 Urine Methadone Screen NEGATIVE (NEGATIVE) 01/31/18 14:00 Acetaminophen < 10.0 ug/mL (10.0-30.0) L 01/31/18 13:30 Ur Barbiturates Screen NEGATIVE (NEGATIVE) 01/31/18 14:00 Ur Tricyclics Screen POSITIVE (NEGATIVE) H 01/31/18 14:00 Ur Phencyclidine Scrn NEGATIVE (NEGATIVE) 01/31/18 14:00 Amphetamines Screen NEGATIVE (NEGATIVE) 01/31/18 14:00 U Methamphetamines Scrn NEGATIVE (NEGATIVE) 01/31/18 14:00 U Benzodiazepines Scrn NEGATIVE (NEGATIVE) 01/31/18 14:00 U Cocaine Metab Screen NEGATIVE (NEGATIVE) 01/31/18 14:00 U Cannabinoids Screen NEGATIVE (NEGATIVE) 01/31/18 14:00 Ethyl Alcohol < 10 mg/dL (0-10) 01/31/18 13:30 RPR NONREACTIVE (NONREACTIVE) 01/31/18 13:30 - Physical Exam Vitals and I&O: Vital Signs Temp 98.5 F 02/21/18 19:51 Pulse 88 02/21/18 19:51 Resp 20 02/21/18 19:51 BP 150/89 02/21/18 19:51 Pulse Ox 98 02/21/18 19:51 Intake & Output 02/21/18 02/22/18 02/22/18 18:59 06:59 18:59 Intake Total 900 120 Balance 900 120 Intake: Oral 900 120 Other: # Voids 3 3 # Bowel Movements 1 Active Medications: Current Medications Acetaminophen (Tylenol) 650 mg PO Q4HR PRN PRN Reason: Mild Pain / Temp above 100 Stop: 04/01/18 16:55 Al Hydrox/Mg Hydrox/Simethicone (Maalox) 30 ml PO Q4HR PRN PRN Reason: GI DISTRESS Stop: 04/01/18 16:55 Benztropine Mesylate (Cogentin) 2 mg PO BID [facility] Stop: 04/02/18 08:59 Last Admin: 02/22/18 08:45 Dose: 2 mg Carbamazepine (Tegretol) 400 mg PO BID [facility]; Protocol Stop: 04/02/18 08:59 Last Admin: 02/22/18 08:45 Dose: 400 mg Divalproex Sodium (Depakote Dr) 250 mg PO TID [facility]; Protocol Stop: 04/01/18 20:59 Last Admin: 02/22/18 08:45 Dose: 250 mg Docusate Sodium (Colace) 250 mg PO DAILY [facility] Stop: 04/02/18 08:59 Last Admin: 02/22/18 08:46 Dose: Not Given Fludrocortisone Acetate (Florinef) 0.1 mg PO BID [facility] Stop: 04/02/18 08:59 Last Admin: 02/22/18 08:46 Dose: 0.1 mg Haloperidol Lactate (Haldol Concentrate 10mg/5ml Susp) 5 mg PO BID [facility]; Protocol Stop: 04/16/18 16:59 Last Admin: 02/22/18 08:44 Dose: 5 mg Lactobacillus Rhamnosus (Culturelle 15b) 1 each PO DAILY [facility] Stop: 04/04/18 08:59 Last Admin: 02/22/18 08:45 Dose: 1 each Levetiracetam (Keppra) 500 mg PO BID [facility] Stop: 04/02/18 08:59 Last Admin: 02/22/18 08:45 Dose: 500 mg Levothyroxine Sodium (Synthroid) 0.15 mg PO QDAC [facility] Stop: 04/02/18 07:29 Last Admin: 02/22/18 06:46 Dose: 0.15 mg Lorazepam (Ativan) 0.5 mg PO Q6HR PRN; Protocol PRN Reason: Agitation Stop: 04/01/18 17:03 Last Admin: 02/19/18 08:37 Dose: 0.5 mg Magnesium Hydroxide (Milk Of Magnesia) 30 ml PO HS PRN PRN Reason: Constipation Magnesium Hydroxide (Milk Of Magnesia) 30 ml PO HS PRN PRN Reason: Constipation Stop: 04/01/18 17:46 Miscellaneous (Probiotic Screen) 1 ea MC PRN PRN PRN Reason: PROTOCOL Stop: 04/03/18 12:14 Multivitamins/Vitamin C (Theragran) 1 tab PO DAILY [facility] Stop: 04/02/18 08:59 Last Admin: 02/22/18 08:46 Dose: 1 tab Quetiapine Fumarate (Seroquel) 50 mg PO BID [facility]; Protocol Stop: 04/06/18 16:59 Last Admin: 02/22/18 08:45 Dose: 50 mg Quetiapine Fumarate 300 mg/ (Quetiapine Fumarate 400 mg) 700 mg PO HS [facility] Stop: 04/11/18 20:59 Last Admin: 02/21/18 20:08 Dose: 700 mg Senna (Senna) 8.6 mg PO HS [facility] Stop: 04/01/18 20:59 Last Admin: 02/21/18 20:08 Dose: 8.6 mg Tolterodine Tartrate (Detrol) 2 mg PO BID [facility] Stop: 04/02/18 08:59 Last Admin: 02/22/18 08:45 Dose: 2 mg Zolpidem Tartrate (Ambien) 5 mg PO HS PRN PRN Reason: Insomnia Stop: 04/01/18 16:55 Last Admin: 02/20/18 20:28 Dose: 5 mg General: No acute distress HEENT: Atraumatic, PERRLA, EOMI Neck: Supple, JVD, Thyromegaly Cardiovascular: Regular rate, Normal S1, Normal S2 Lungs: Clear to auscultation Abdomen: Bowel sounds, Soft Assessment/Plan - Assessment Assessment: 1.UTI. 2.SEIZURE DISORDERED. 3.HYPOTHYROIDISM. 4.DEMENTIA. - Plan Plan: continue current treatment Nutritional Asmnt/Malnutr-PDOC - Dietary Evaluation Malnutrition Findings (Please click <Entered> for more info): Nutritional Asmnt/Malnutrition Start: 02/06/18 14: 31 Text: Status: Complete Freq: Protocol: Document 02/06/18 14:32 [email or web address] (Rec: 02/06/18 14:44 [email or web address]) Nutritional Asmnt/Malnutrition Patient General Information Nutritional Screening Low Risk Diagnosis psychosis Pertinent Medical Hx/Surgical Hx hypothyroidism, seizure disorder, psychosis, dementia Subjective Information Per EMR, PO intake 100%. Pt tolerated regular diet Current Diet Order/ Nutrition Support regular Pertinent Medications colace, culturelle, synthroid, theragran, seroquel, senna Pertinent Labs 01/31 alb 3.5 Nutritional Hx/Data Height 1.7 m Height (Calculated Centimeters) 170.2 Current Weight (lbs) 63.503 kg Weight (Calculated Kilograms) 63.5 Weight (Calculated Grams) 61891.9 [place] Body Weight 135 Body Mass Index (BMI) 21.9 Weight Status Approriate GI Symptoms GI Symptoms None Last BM 02/05 Difficult in: None Skin Integrity/Comment: intact Current %PO Good (75-100%) Estimated Nutritional Goals BEE in Kcals: Using Current wt Calories/Kcals/Kg 25-30 Kcals Calculated 5429-4860 Protein: Using Current wt Protein g/k Protein Calculated 64 Fluid: ml 1600-1920ml (1m/kcal) Nutritional Problem No current Nutrition Prob Problem N/A Malnutrition Alert Is there a minimum of two criteria No selected? Query Text:Check all the applicable criteria. A minimum of two criteria are recommended for diagnosis of either severe or non-severe malnutrition. Malnutrition Related to Morbid Obesity Malnutrition related to morbid obesity No Intervention/Recommendation Comments 1. Continue with regular diet as ordered. 2. Monitor PO intake, wt, labs and skin integrity 3. F/U as low risk in 7 days, 02/13 Expected Outcomes/Goals Expected Outcomes/Goals 1. PO intake to meet at least 75% of nutritional needs. 2. Wt stability, skin to remain intact, labs to approach WNL.
[2018-02-22] MEDS: QUETIAPINE FUMARATE PO SCH (20:51)
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
[2018-02-23] MEDS: Levothyroxine 0.075 Mg Tab PO SCH (06:39)
[2018-02-23] MEDS: Multivitamin Tab PO SCH (09:25)
[2018-02-23] MEDS: Benztropine 1 MG TAB PO SCH ×2 (09:25→17:05)
[2018-02-23] MEDS: Lactobacillus Rhamnosus GG 15 Billion CFU CAP.SPRINK PO SCH (09:26)
[2018-02-23] MEDS: Haldol Oral Sol.(concentrate) 10 mg/5 mL Udc PO SCH ×3 (09:26→20:22)
--- NOTE | 2018-02-23 15:46 | General Progress Note ---
Subjective - Review of Systems Service Date: 02/23/18 Subjective: resting comfortably no distress Objective - Results Result Diagrams: 01/31/18 13:30 01/31/18 13:30 Recent Labs: Laboratory Last Values WBC 5.2 Th/cmm (4.8-10.8) 01/31/18 13:30 RBC 3.70 Mil/cmm (3.80-5.10) L 01/31/18 13:30 Hgb 12.0 gm/dL (12-16) 01/31/18 13:30 Hct 35.2 % (41.0-60) L 01/31/18 13:30 MCV 95.0 fl (81-100) 01/31/18 13:30 MCH 32.5 pg (27.0-31.0) H 01/31/18 13:30 MCHC Differential 34.2 pg (28.0-36.0) 01/31/18 13:30 RDW 13.1 % (11.5-20.0) 01/31/18 13:30 Plt Count 202 Th/cmm (150-400) 01/31/18 13:30 MPV 6.7 fl 01/31/18 13:30 Neutrophils % 57.8 % (40.0-80.0) 01/31/18 13:30 Lymphocytes % 31.5 % (20.0-50.0) 01/31/18 13:30 Monocytes % 8.7 % (2.0-10.0) 01/31/18 13:30 Eosinophils % 1.1 % (0.0-5.0) 01/31/18 13:30 Basophils % 0.9 % (0.0-2.0) 01/31/18 13:30 Sodium 137 mEq/L (136-145) 01/31/18 13:30 Potassium 4.1 mEq/L (3.5-5.1) 01/31/18 13:30 Chloride 104 mEq/L (98-107) 01/31/18 13:30 Carbon Dioxide 28.3 mEq/L (21.0-31.0) 01/31/18 13:30 Anion Gap 8.8 (7.0-16.0) 01/31/18 13:30 BUN 25 mg/dL (7-25) 01/31/18 13:30 Creatinine 1.1 mg/dL (0.6-1.2) 01/31/18 13:30 Est GFR ( Amer) > 60.0 ml/min (>90) 01/31/18 13:30 Est GFR (Non-Af Amer) 53.7 ml/min 01/31/18 13:30 BUN/Creatinine Ratio 22.7 01/31/18 13:30 Glucose 92 mg/dL (70-105) 01/31/18 13:30 Calcium 9.1 mg/dL (8.6-10.3) 01/31/18 13:30 Total Bilirubin 0.3 mg/dL (0.3-1.0) 01/31/18 13:30 AST 18 U/L (13-39) 01/31/18 13:30 ALT 12 U/L (7-52) 01/31/18 13:30 Alkaline Phosphatase 68 U/L (34-104) 01/31/18 13:30 Troponin I 0.01 ng/mL (0.01-0.05) 01/31/18 13:30 Total Protein 6.6 gm/dL (6.0-8.3) 01/31/18 13:30 Albumin 3.5 gm/dL (3.7-5.3) L 01/31/18 13:30 Globulin 3.1 gm/dL 01/31/18 13:30 Albumin/Globulin Ratio 1.1 (1.0-1.8) 01/31/18 13:30 Triglycerides 111 mg/dL (<150) 01/31/18 13:30 Cholesterol 191 mg/dL (<200) 01/31/18 13:30 LDL Cholesterol Direct 91 mg/dL (75-193) 01/31/18 13:30 HDL Cholesterol 76 mg/dL (23-92) 01/31/18 13:30 TSH 3.99 uIU/ml (0.34-5.60) 01/31/18 13:30 Urine Source CLEAN C 01/31/18 14:00 Urine Color YELLOW 01/31/18 14:00 Urine Clarity HAZY (CLEAR) 01/31/18 14:00 Urine pH 6.0 (4.6 - 8.0) 01/31/18 14:00 Ur Specific [place] 1.010 (1.005-1.030) 01/31/18 14:00 Urine Protein NEGATIVE mg/dL (NEGATIVE) 01/31/18 14:00 Urine Glucose (UA) NEGATIVE mg/dL (NEGATIVE) 01/31/18 14:00 Urine Ketones NEGATIVE mg/dL (NEGATIVE) 01/31/18 14:00 Urine Blood SMALL (NEGATIVE) H 01/31/18 14:00 Urine Nitrate POSITIVE (NEGATIVE) H 01/31/18 14:00 Urine Bilirubin NEGATIVE (NEGATIVE) 01/31/18 14:00 Urine Urobilinogen 0.2 E.U./dL (0.2 - 1.0) 01/31/18 14:00 Ur Leukocyte Esterase MODERATE (NEGATIVE) H 01/31/18 14:00 Urine RBC 2-5 /hpf (0-5) 01/31/18 14:00 Urine WBC 6-10 /hpf (0-5) H 01/31/18 14:00 Ur Epithelial Cells MODERATE /lpf (FEW) 01/31/18 14:00 Urine Bacteria 4+ /hpf (NONE SEEN) H 01/31/18 14:00 Salicylates < 25.0 mg/L (30.0-100.0) L 01/31/18 13:30 Urine Opiates Screen NEGATIVE (NEGATIVE) 01/31/18 14:00 Urine Methadone Screen NEGATIVE (NEGATIVE) 01/31/18 14:00 Acetaminophen < 10.0 ug/mL (10.0-30.0) L 01/31/18 13:30 Ur Barbiturates Screen NEGATIVE (NEGATIVE) 01/31/18 14:00 Ur Tricyclics Screen POSITIVE (NEGATIVE) H 01/31/18 14:00 Ur Phencyclidine Scrn NEGATIVE (NEGATIVE) 01/31/18 14:00 Amphetamines Screen NEGATIVE (NEGATIVE) 01/31/18 14:00 U Methamphetamines Scrn NEGATIVE (NEGATIVE) 01/31/18 14:00 U Benzodiazepines Scrn NEGATIVE (NEGATIVE) 01/31/18 14:00 U Cocaine Metab Screen NEGATIVE (NEGATIVE) 01/31/18 14:00 U Cannabinoids Screen NEGATIVE (NEGATIVE) 01/31/18 14:00 Ethyl Alcohol < 10 mg/dL (0-10) 01/31/18 13:30 RPR NONREACTIVE (NONREACTIVE) 01/31/18 13:30 - Physical Exam Vitals and I&O: Vital Signs Temp 97.0 F 02/23/18 14:00 Pulse 79 02/23/18 14:00 Resp 18 02/23/18 14:00 BP 154/87 02/23/18 14:00 Pulse Ox 96 02/23/18 14:00 Intake & Output 02/22/18 02/23/18 02/23/18 18:59 06:59 18:59 Intake Total 1200 400 Output Total 2 Balance 1200 398 Intake: Oral 1200 400 Output: Urine 2 Other: # Bowel Movements 1 Active Medications: Current Medications Acetaminophen (Tylenol) 650 mg PO Q4HR PRN PRN Reason: Mild Pain / Temp above 100 Stop: 04/01/18 16:55 Last Admin: 02/23/18 09:24 Dose: 650 mg Al Hydrox/Mg Hydrox/Simethicone (Maalox) 30 ml PO Q4HR PRN PRN Reason: GI DISTRESS Stop: 04/01/18 16:55 Benztropine Mesylate (Cogentin) 2 mg PO BID [facility] Stop: 04/02/18 08:59 Last Admin: 02/23/18 09:25 Dose: 2 mg Carbamazepine (Tegretol) 400 mg PO BID [facility]; Protocol Stop: 04/02/18 08:59 Last Admin: 02/23/18 09:25 Dose: 400 mg Divalproex Sodium (Depakote Dr) 250 mg PO TID [facility]; Protocol Stop: 04/01/18 20:59 Last Admin: 02/23/18 14:12 Dose: 250 mg Docusate Sodium (Colace) 250 mg PO DAILY [facility] Stop: 04/02/18 08:59 Last Admin: 02/23/18 09:26 Dose: 250 mg Fludrocortisone Acetate (Florinef) 0.1 mg PO BID [facility] Stop: 04/02/18 08:59 Last Admin: 02/23/18 09:27 Dose: Not Given Haloperidol Lactate (Haldol Concentrate 10mg/5ml Susp) 5 mg PO TID [facility]; Protocol Stop: 04/23/18 20:59 Last Admin: 02/23/18 14:12 Dose: 5 mg Lactobacillus Rhamnosus (Culturelle 15b) 1 each PO DAILY [facility] Stop: 04/04/18 08:59 Last Admin: 02/23/18 09:26 Dose: 1 each Levetiracetam (Keppra) 500 mg PO BID [facility] Stop: 04/02/18 08:59 Last Admin: 02/23/18 09:25 Dose: 500 mg Levothyroxine Sodium (Synthroid) 0.15 mg PO QDAC [facility] Stop: 04/02/18 07:29 Last Admin: 02/23/18 06:39 Dose: 0.15 mg Lorazepam (Ativan) 0.5 mg PO Q6HR PRN; Protocol PRN Reason: Agitation Stop: 04/01/18 17:03 Last Admin: 02/23/18 09:26 Dose: 0.5 mg Magnesium Hydroxide (Milk Of Magnesia) 30 ml PO HS PRN PRN Reason: Constipation Magnesium Hydroxide (Milk Of Magnesia) 30 ml PO HS PRN PRN Reason: Constipation Stop: 04/01/18 17:46 Miscellaneous (Probiotic Screen) 1 ea MC PRN PRN PRN Reason: PROTOCOL Stop: 04/03/18 12:14 Multivitamins/Vitamin C (Theragran) 1 tab PO DAILY [facility] Stop: 04/02/18 08:59 Last Admin: 02/23/18 09:25 Dose: 1 tab Quetiapine Fumarate (Seroquel) 50 mg PO BID [facility]; Protocol Stop: 04/06/18 16:59 Last Admin: 02/23/18 09:26 Dose: 50 mg Quetiapine Fumarate 300 mg/ (Quetiapine Fumarate 400 mg) 700 mg PO HS [facility] Stop: 04/11/18 20:59 Last Admin: 02/22/18 20:51 Dose: 700 mg Senna (Senna) 8.6 mg PO HS [facility] Stop: 04/01/18 20:59 Last Admin: 02/22/18 20:51 Dose: 8.6 mg Tolterodine Tartrate (Detrol) 2 mg PO BID [facility] Stop: 04/02/18 08:59 Last Admin: 02/23/18 09:25 Dose: 2 mg Zolpidem Tartrate (Ambien) 5 mg PO HS PRN PRN Reason: Insomnia Stop: 04/01/18 16:55 Last Admin: 02/20/18 20:28 Dose: 5 mg General: No acute distress HEENT: Atraumatic, PERRLA, EOMI Neck: Supple, JVD, Thyromegaly Cardiovascular: Regular rate, Normal S1, Normal S2 Lungs: Clear to auscultation Abdomen: Bowel sounds, Soft Assessment/Plan - Assessment Assessment: 1.UTI. 2.SEIZURE DISORDERED. 3.HYPOTHYROIDISM. 4.DEMENTIA. - Plan Plan: continue current treatment Nutritional Asmnt/Malnutr-PDOC - Dietary Evaluation Malnutrition Findings (Please click <Entered> for more info): Nutritional Asmnt/Malnutrition Start: 02/06/18 14: 31 Text: Status: Complete Freq: Protocol: Document 02/06/18 14:32 [email or web address] (Rec: 02/06/18 14:44 [email or web address]-[email or web address]) Nutritional Asmnt/Malnutrition Patient General Information Nutritional Screening Low Risk Diagnosis psychosis Pertinent Medical Hx/Surgical Hx hypothyroidism, seizure disorder, psychosis, dementia Subjective Information Per EMR, PO intake 100%. Pt tolerated regular diet Current Diet Order/ Nutrition Support regular Pertinent Medications colace, culturelle, synthroid, theragran, seroquel, senna Pertinent Labs 01/31 alb 3.5 Nutritional Hx/Data Height 1.7 m Height (Calculated Centimeters) 170.2 Current Weight (lbs) 63.503 kg Weight (Calculated Kilograms) 63.5 Weight (Calculated Grams) 21401.9 [place] Body Weight 135 Body Mass Index (BMI) 21.9 Weight Status Approriate GI Symptoms GI Symptoms None Last BM 02/05 Difficult in: None Skin Integrity/Comment: intact Current %PO Good (75-100%) Estimated Nutritional Goals BEE in Kcals: Using Current wt Calories/Kcals/Kg 25-30 Kcals Calculated 8679-7805 Protein: Using Current wt Protein g/k Protein Calculated 64 Fluid: ml 1600-1920ml (1m/kcal) Nutritional Problem No current Nutrition Prob Problem N/A Malnutrition Alert Is there a minimum of two criteria No selected? Query Text:Check all the applicable criteria. A minimum of two criteria are recommended for diagnosis of either severe or non-severe malnutrition. Malnutrition Related to Morbid Obesity Malnutrition related to morbid obesity No Intervention/Recommendation Comments 1. Continue with regular diet as ordered. 2. Monitor PO intake, wt, labs and skin integrity 3. F/U as low risk in 7 days, 02/13 Expected Outcomes/Goals Expected Outcomes/Goals 1. PO intake to meet at least 75% of nutritional needs. 2. Wt stability, skin to remain intact, labs to approach WNL.
[2018-02-23] MEDS: QUETIAPINE FUMARATE PO SCH (20:20)
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
[2018-02-24] MEDS: Levothyroxine 0.075 Mg Tab PO SCH (06:33)
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
[2018-02-24] MEDS: Multivitamin Tab PO SCH (08:36)
[2018-02-24] MEDS: Lactobacillus Rhamnosus GG 15 Billion CFU CAP.SPRINK PO SCH (08:36)
[2018-02-24] MEDS: Benztropine 1 MG TAB PO SCH ×2 (08:36→17:07)
[2018-02-24] MEDS: Haldol Oral Sol.(concentrate) 10 mg/5 mL Udc PO SCH ×3 (08:37→20:39)
--- NOTE | 2018-02-24 15:26 | General Progress Note ---
Subjective - Review of Systems Service Date: 02/24/18 Subjective: resting comfortably no distress Objective - Results Result Diagrams: 01/31/18 13:30 01/31/18 13:30 Recent Labs: Laboratory Last Values WBC 5.2 Th/cmm (4.8-10.8) 01/31/18 13:30 RBC 3.70 Mil/cmm (3.80-5.10) L 01/31/18 13:30 Hgb 12.0 gm/dL (12-16) 01/31/18 13:30 Hct 35.2 % (41.0-60) L 01/31/18 13:30 MCV 95.0 fl (81-100) 01/31/18 13:30 MCH 32.5 pg (27.0-31.0) H 01/31/18 13:30 MCHC Differential 34.2 pg (28.0-36.0) 01/31/18 13:30 RDW 13.1 % (11.5-20.0) 01/31/18 13:30 Plt Count 202 Th/cmm (150-400) 01/31/18 13:30 MPV 6.7 fl 01/31/18 13:30 Neutrophils % 57.8 % (40.0-80.0) 01/31/18 13:30 Lymphocytes % 31.5 % (20.0-50.0) 01/31/18 13:30 Monocytes % 8.7 % (2.0-10.0) 01/31/18 13:30 Eosinophils % 1.1 % (0.0-5.0) 01/31/18 13:30 Basophils % 0.9 % (0.0-2.0) 01/31/18 13:30 Sodium 137 mEq/L (136-145) 01/31/18 13:30 Potassium 4.1 mEq/L (3.5-5.1) 01/31/18 13:30 Chloride 104 mEq/L (98-107) 01/31/18 13:30 Carbon Dioxide 28.3 mEq/L (21.0-31.0) 01/31/18 13:30 Anion Gap 8.8 (7.0-16.0) 01/31/18 13:30 BUN 25 mg/dL (7-25) 01/31/18 13:30 Creatinine 1.1 mg/dL (0.6-1.2) 01/31/18 13:30 Est GFR ( Amer) > 60.0 ml/min (>90) 01/31/18 13:30 Est GFR (Non-Af Amer) 53.7 ml/min 01/31/18 13:30 BUN/Creatinine Ratio 22.7 01/31/18 13:30 Glucose 92 mg/dL (70-105) 01/31/18 13:30 Calcium 9.1 mg/dL (8.6-10.3) 01/31/18 13:30 Total Bilirubin 0.3 mg/dL (0.3-1.0) 01/31/18 13:30 AST 18 U/L (13-39) 01/31/18 13:30 ALT 12 U/L (7-52) 01/31/18 13:30 Alkaline Phosphatase 68 U/L (34-104) 01/31/18 13:30 Troponin I 0.01 ng/mL (0.01-0.05) 01/31/18 13:30 Total Protein 6.6 gm/dL (6.0-8.3) 01/31/18 13:30 Albumin 3.5 gm/dL (3.7-5.3) L 01/31/18 13:30 Globulin 3.1 gm/dL 01/31/18 13:30 Albumin/Globulin Ratio 1.1 (1.0-1.8) 01/31/18 13:30 Triglycerides 111 mg/dL (<150) 01/31/18 13:30 Cholesterol 191 mg/dL (<200) 01/31/18 13:30 LDL Cholesterol Direct 91 mg/dL (75-193) 01/31/18 13:30 HDL Cholesterol 76 mg/dL (23-92) 01/31/18 13:30 TSH 3.99 uIU/ml (0.34-5.60) 01/31/18 13:30 Urine Source CLEAN C 01/31/18 14:00 Urine Color YELLOW 01/31/18 14:00 Urine Clarity HAZY (CLEAR) 01/31/18 14:00 Urine pH 6.0 (4.6 - 8.0) 01/31/18 14:00 Ur Specific [place] 1.010 (1.005-1.030) 01/31/18 14:00 Urine Protein NEGATIVE mg/dL (NEGATIVE) 01/31/18 14:00 Urine Glucose (UA) NEGATIVE mg/dL (NEGATIVE) 01/31/18 14:00 Urine Ketones NEGATIVE mg/dL (NEGATIVE) 01/31/18 14:00 Urine Blood SMALL (NEGATIVE) H 01/31/18 14:00 Urine Nitrate POSITIVE (NEGATIVE) H 01/31/18 14:00 Urine Bilirubin NEGATIVE (NEGATIVE) 01/31/18 14:00 Urine Urobilinogen 0.2 E.U./dL (0.2 - 1.0) 01/31/18 14:00 Ur Leukocyte Esterase MODERATE (NEGATIVE) H 01/31/18 14:00 Urine RBC 2-5 /hpf (0-5) 01/31/18 14:00 Urine WBC 6-10 /hpf (0-5) H 01/31/18 14:00 Ur Epithelial Cells MODERATE /lpf (FEW) 01/31/18 14:00 Urine Bacteria 4+ /hpf (NONE SEEN) H 01/31/18 14:00 Salicylates < 25.0 mg/L (30.0-100.0) L 01/31/18 13:30 Urine Opiates Screen NEGATIVE (NEGATIVE) 01/31/18 14:00 Urine Methadone Screen NEGATIVE (NEGATIVE) 01/31/18 14:00 Acetaminophen < 10.0 ug/mL (10.0-30.0) L 01/31/18 13:30 Ur Barbiturates Screen NEGATIVE (NEGATIVE) 01/31/18 14:00 Valproic Acid 41.5 ug/mL (50.0-100.0) L 02/24/18 06:45 Ur Tricyclics Screen POSITIVE (NEGATIVE) H 01/31/18 14:00 Ur Phencyclidine Scrn NEGATIVE (NEGATIVE) 01/31/18 14:00 Amphetamines Screen NEGATIVE (NEGATIVE) 01/31/18 14:00 U Methamphetamines Scrn NEGATIVE (NEGATIVE) 01/31/18 14:00 U Benzodiazepines Scrn NEGATIVE (NEGATIVE) 01/31/18 14:00 U Cocaine Metab Screen NEGATIVE (NEGATIVE) 01/31/18 14:00 U Cannabinoids Screen NEGATIVE (NEGATIVE) 01/31/18 14:00 Ethyl Alcohol < 10 mg/dL (0-10) 01/31/18 13:30 RPR NONREACTIVE (NONREACTIVE) 01/31/18 13:30 - Physical Exam Vitals and I&O: Vital Signs Temp 97.2 F 02/24/18 14:00 Pulse 80 02/24/18 14:00 Resp 20 02/24/18 14:00 BP 129/91 02/24/18 14:00 Pulse Ox 98 02/24/18 14:00 Intake & Output 02/23/18 02/24/18 02/24/18 18:59 06:59 18:59 Intake Total 720 Balance 720 Intake: Oral 720 Other: # Voids 1 Active Medications: Current Medications Acetaminophen (Tylenol) 650 mg PO Q4HR PRN PRN Reason: Mild Pain / Temp above 100 Stop: 04/01/18 16:55 Last Admin: 02/23/18 09:24 Dose: 650 mg Al Hydrox/Mg Hydrox/Simethicone (Maalox) 30 ml PO Q4HR PRN PRN Reason: GI DISTRESS Stop: 04/01/18 16:55 Benztropine Mesylate (Cogentin) 2 mg PO BID [facility] Stop: 04/02/18 08:59 Last Admin: 02/24/18 08:36 Dose: 2 mg Carbamazepine (Tegretol) 400 mg PO BID [facility]; Protocol Stop: 04/02/18 08:59 Last Admin: 02/24/18 08:36 Dose: 400 mg Divalproex Sodium (Depakote Dr) 250 mg PO TID [facility]; Protocol Stop: 04/01/18 20:59 Last Admin: 02/24/18 14:00 Dose: 250 mg Docusate Sodium (Colace) 250 mg PO DAILY [facility] Stop: 04/02/18 08:59 Last Admin: 02/24/18 08:42 Dose: Not Given Fludrocortisone Acetate (Florinef) 0.1 mg PO BID [facility] Stop: 04/02/18 08:59 Last Admin: 02/24/18 08:38 Dose: Not Given Haloperidol Lactate (Haldol Concentrate 10mg/5ml Susp) 5 mg PO TID [facility]; Protocol Stop: 04/23/18 20:59 Last Admin: 02/24/18 15:00 Dose: 5 mg Lactobacillus Rhamnosus (Culturelle 15b) 1 each PO DAILY [facility] Stop: 04/04/18 08:59 Last Admin: 02/24/18 08:36 Dose: 1 each Levetiracetam (Keppra) 500 mg PO BID [facility] Stop: 04/02/18 08:59 Last Admin: 02/24/18 08:36 Dose: 500 mg Levothyroxine Sodium (Synthroid) 0.15 mg PO QDAC [facility] Stop: 04/02/18 07:29 Last Admin: 02/24/18 06:33 Dose: 0.15 mg Lorazepam (Ativan) 0.5 mg PO Q6HR PRN; Protocol PRN Reason: Agitation Stop: 04/01/18 17:03 Last Admin: 02/23/18 09:26 Dose: 0.5 mg Magnesium Hydroxide (Milk Of Magnesia) 30 ml PO HS PRN PRN Reason: Constipation Magnesium Hydroxide (Milk Of Magnesia) 30 ml PO HS PRN PRN Reason: Constipation Stop: 04/01/18 17:46 Miscellaneous (Probiotic Screen) 1 ea MC PRN PRN PRN Reason: PROTOCOL Stop: 04/03/18 12:14 Multivitamins/Vitamin C (Theragran) 1 tab PO DAILY [facility] Stop: 04/02/18 08:59 Last Admin: 02/24/18 08:36 Dose: 1 tab Quetiapine Fumarate (Seroquel) 50 mg PO BID [facility]; Protocol Stop: 04/06/18 16:59 Last Admin: 02/24/18 08:36 Dose: 50 mg Quetiapine Fumarate 300 mg/ (Quetiapine Fumarate 400 mg) 700 mg PO HS [facility] Stop: 04/11/18 20:59 Last Admin: 02/23/18 20:20 Dose: 700 mg Senna (Senna) 8.6 mg PO HS [facility] Stop: 04/01/18 20:59 Last Admin: 02/23/18 20:20 Dose: 8.6 mg Tolterodine Tartrate (Detrol) 2 mg PO BID [facility] Stop: 04/02/18 08:59 Last Admin: 02/24/18 08:37 Dose: 2 mg Zolpidem Tartrate (Ambien) 5 mg PO HS PRN PRN Reason: Insomnia Stop: 04/01/18 16:55 Last Admin: 02/20/18 20:28 Dose: 5 mg General: No acute distress HEENT: Atraumatic, PERRLA, EOMI Neck: Supple, JVD, Thyromegaly Cardiovascular: Regular rate, Normal S1, Normal S2 Lungs: Clear to auscultation Abdomen: Bowel sounds, Soft Assessment/Plan - Assessment Assessment: 1.UTI. 2.SEIZURE DISORDERED. 3.HYPOTHYROIDISM. 4.DEMENTIA. - Plan Plan: continue current treatment Nutritional Asmnt/Malnutr-PDOC - Dietary Evaluation Malnutrition Findings (Please click <Entered> for more info): Nutritional Asmnt/Malnutrition Start: 02/06/18 14: 31 Text: Status: Complete Freq: Protocol: Document 02/06/18 14:32 EMMAG (Rec: 02/06/18 14:44 [email or web address]) Nutritional Asmnt/Malnutrition Patient General Information Nutritional Screening Low Risk Diagnosis psychosis Pertinent Medical Hx/Surgical Hx hypothyroidism, seizure disorder, psychosis, dementia Subjective Information Per EMR, PO intake 100%. Pt tolerated regular diet Current Diet Order/ Nutrition Support regular Pertinent Medications colace, culturelle, synthroid, theragran, seroquel, senna Pertinent Labs 01/31 alb 3.5 Nutritional Hx/Data Height 1.7 m Height (Calculated Centimeters) 170.2 Current Weight (lbs) 63.503 kg Weight (Calculated Kilograms) 63.5 Weight (Calculated Grams) 12945.9 [place] Body Weight 135 Body Mass Index (BMI) 21.9 Weight Status Approriate GI Symptoms GI Symptoms None Last BM 02/05 Difficult in: None Skin Integrity/Comment: intact Current %PO Good (75-100%) Estimated Nutritional Goals BEE in Kcals: Using Current wt Calories/Kcals/Kg 25-30 Kcals Calculated 1045-2523 Protein: Using Current wt Protein g/k Protein Calculated 64 Fluid: ml 1600-1920ml (1m/kcal) Nutritional Problem No current Nutrition Prob Problem N/A Malnutrition Alert Is there a minimum of two criteria No selected? Query Text:Check all the applicable criteria. A minimum of two criteria are recommended for diagnosis of either severe or non-severe malnutrition. Malnutrition Related to Morbid Obesity Malnutrition related to morbid obesity No Intervention/Recommendation Comments 1. Continue with regular diet as ordered. 2. Monitor PO intake, wt, labs and skin integrity 3. F/U as low risk in 7 days, 02/13 Expected Outcomes/Goals Expected Outcomes/Goals 1. PO intake to meet at least 75% of nutritional needs. 2. Wt stability, skin to remain intact, labs to approach WNL.
[2018-02-24] MEDS: QUETIAPINE FUMARATE PO SCH (20:39)
[2018-02-25] MEDS: Levothyroxine 0.075 Mg Tab PO SCH (06:35)
[2018-02-25] MEDS: Benztropine 1 MG TAB PO SCH ×2 (09:50→17:00)
[2018-02-25] MEDS: Lactobacillus Rhamnosus GG 15 Billion CFU CAP.SPRINK PO SCH (09:50)
[2018-02-25] MEDS: Haldol Oral Sol.(concentrate) 10 mg/5 mL Udc PO SCH ×3 (09:50→21:57)
[2018-02-25] MEDS: Multivitamin Tab PO SCH (10:51)
--- NOTE | 2018-02-25 18:04 | Progress Notes ---
DATE: 02/25/2018 SUBJECTIVE: Chart reviewed and the patient interviewed. Also, discussed the patient's condition with the staff and reviewed records and labs. The patient continued to be agitated and argumentative. She also is still intrusive to others. The patient also still has episodes of talking to herself. Also, the patient had sexual inappropriate behavior. Otherwise, the patient continued to take Seroquel and Depakote with no side effects. Depakote blood level is pending. JOB# [id number]
--- NOTE | 2018-02-25 19:59 | Internal Medicine Prog Note ---
Internal Medicine Subjective - Subjective Service Date: 02/25/18 Patient seen and examined:: with staff Patient is:: awake, non-verbal, in bed, confused Per staff patient has:: no adverse event Internal Medicine Objective - Results Result Diagrams: 01/31/18 13:30 01/31/18 13:30 Recent Labs: Laboratory Last Values WBC 5.2 Th/cmm (4.8-10.8) 01/31/18 13:30 RBC 3.70 Mil/cmm (3.80-5.10) L 01/31/18 13:30 Hgb 12.0 gm/dL (12-16) 01/31/18 13:30 Hct 35.2 % (41.0-60) L 01/31/18 13:30 MCV 95.0 fl (81-100) 01/31/18 13:30 MCH 32.5 pg (27.0-31.0) H 01/31/18 13:30 MCHC Differential 34.2 pg (28.0-36.0) 01/31/18 13:30 RDW 13.1 % (11.5-20.0) 01/31/18 13:30 Plt Count 202 Th/cmm (150-400) 01/31/18 13:30 MPV 6.7 fl 01/31/18 13:30 Neutrophils % 57.8 % (40.0-80.0) 01/31/18 13:30 Lymphocytes % 31.5 % (20.0-50.0) 01/31/18 13:30 Monocytes % 8.7 % (2.0-10.0) 01/31/18 13:30 Eosinophils % 1.1 % (0.0-5.0) 01/31/18 13:30 Basophils % 0.9 % (0.0-2.0) 01/31/18 13:30 Sodium 137 mEq/L (136-145) 01/31/18 13:30 Potassium 4.1 mEq/L (3.5-5.1) 01/31/18 13:30 Chloride 104 mEq/L (98-107) 01/31/18 13:30 Carbon Dioxide 28.3 mEq/L (21.0-31.0) 01/31/18 13:30 Anion Gap 8.8 (7.0-16.0) 01/31/18 13:30 BUN 25 mg/dL (7-25) 01/31/18 13:30 Creatinine 1.1 mg/dL (0.6-1.2) 01/31/18 13:30 Est GFR ( Amer) > 60.0 ml/min (>90) 01/31/18 13:30 Est GFR (Non-Af Amer) 53.7 ml/min 01/31/18 13:30 BUN/Creatinine Ratio 22.7 01/31/18 13:30 Glucose 92 mg/dL (70-105) 01/31/18 13:30 Calcium 9.1 mg/dL (8.6-10.3) 01/31/18 13:30 Total Bilirubin 0.3 mg/dL (0.3-1.0) 01/31/18 13:30 AST 18 U/L (13-39) 01/31/18 13:30 ALT 12 U/L (7-52) 01/31/18 13:30 Alkaline Phosphatase 68 U/L (34-104) 01/31/18 13:30 Troponin I 0.01 ng/mL (0.01-0.05) 01/31/18 13:30 Total Protein 6.6 gm/dL (6.0-8.3) 01/31/18 13:30 Albumin 3.5 gm/dL (3.7-5.3) L 01/31/18 13:30 Globulin 3.1 gm/dL 01/31/18 13:30 Albumin/Globulin Ratio 1.1 (1.0-1.8) 01/31/18 13:30 Triglycerides 111 mg/dL (<150) 01/31/18 13:30 Cholesterol 191 mg/dL (<200) 01/31/18 13:30 LDL Cholesterol Direct 91 mg/dL (75-193) 01/31/18 13:30 HDL Cholesterol 76 mg/dL (23-92) 01/31/18 13:30 TSH 3.99 uIU/ml (0.34-5.60) 01/31/18 13:30 Urine Source CLEAN C 01/31/18 14:00 Urine Color YELLOW 01/31/18 14:00 Urine Clarity HAZY (CLEAR) 01/31/18 14:00 Urine pH 6.0 (4.6 - 8.0) 01/31/18 14:00 Ur Specific [place] 1.010 (1.005-1.030) 01/31/18 14:00 Urine Protein NEGATIVE mg/dL (NEGATIVE) 01/31/18 14:00 Urine Glucose (UA) NEGATIVE mg/dL (NEGATIVE) 01/31/18 14:00 Urine Ketones NEGATIVE mg/dL (NEGATIVE) 01/31/18 14:00 Urine Blood SMALL (NEGATIVE) H 01/31/18 14:00 Urine Nitrate POSITIVE (NEGATIVE) H 01/31/18 14:00 Urine Bilirubin NEGATIVE (NEGATIVE) 01/31/18 14:00 Urine Urobilinogen 0.2 E.U./dL (0.2 - 1.0) 01/31/18 14:00 Ur Leukocyte Esterase MODERATE (NEGATIVE) H 01/31/18 14:00 Urine RBC 2-5 /hpf (0-5) 01/31/18 14:00 Urine WBC 6-10 /hpf (0-5) H 01/31/18 14:00 Ur Epithelial Cells MODERATE /lpf (FEW) 01/31/18 14:00 Urine Bacteria 4+ /hpf (NONE SEEN) H 01/31/18 14:00 Salicylates < 25.0 mg/L (30.0-100.0) L 01/31/18 13:30 Urine Opiates Screen NEGATIVE (NEGATIVE) 01/31/18 14:00 Urine Methadone Screen NEGATIVE (NEGATIVE) 01/31/18 14:00 Acetaminophen < 10.0 ug/mL (10.0-30.0) L 01/31/18 13:30 Ur Barbiturates Screen NEGATIVE (NEGATIVE) 01/31/18 14:00 Valproic Acid 41.5 ug/mL (50.0-100.0) L 02/24/18 06:45 Ur Tricyclics Screen POSITIVE (NEGATIVE) H 01/31/18 14:00 Ur Phencyclidine Scrn NEGATIVE (NEGATIVE) 01/31/18 14:00 Amphetamines Screen NEGATIVE (NEGATIVE) 01/31/18 14:00 U Methamphetamines Scrn NEGATIVE (NEGATIVE) 01/31/18 14:00 U Benzodiazepines Scrn NEGATIVE (NEGATIVE) 01/31/18 14:00 U Cocaine Metab Screen NEGATIVE (NEGATIVE) 01/31/18 14:00 U Cannabinoids Screen NEGATIVE (NEGATIVE) 01/31/18 14:00 Ethyl Alcohol < 10 mg/dL (0-10) 01/31/18 13:30 RPR NONREACTIVE (NONREACTIVE) 01/31/18 13:30 - Physical Exam Vitals and I&O: Vital Signs Temp 97.4 F 02/25/18 14:10 Pulse 78 02/25/18 14:10 Resp 18 02/25/18 14:10 BP 124/78 02/25/18 14:10 Pulse Ox 96 02/25/18 14:10 Intake & Output 02/25/18 02/25/18 02/26/18 06:59 18:59 06:59 Intake Total 1600 Balance 1600 Intake: Oral 1600 Other: # Voids 4 # Bowel Movements 1 Active Medications: Current Medications Acetaminophen (Tylenol) 650 mg PO Q4HR PRN PRN Reason: Mild Pain / Temp above 100 Stop: 04/01/18 16:55 Last Admin: 02/23/18 09:24 Dose: 650 mg Al Hydrox/Mg Hydrox/Simethicone (Maalox) 30 ml PO Q4HR PRN PRN Reason: GI DISTRESS Stop: 04/01/18 16:55 Benztropine Mesylate (Cogentin) 2 mg PO BID [facility] Stop: 04/02/18 08:59 Last Admin: 02/25/18 17:00 Dose: 2 mg Carbamazepine (Tegretol) 400 mg PO BID [facility]; Protocol Stop: 04/02/18 08:59 Last Admin: 02/25/18 17:00 Dose: 400 mg Divalproex Sodium (Depakote Dr) 250 mg PO TID [facility]; Protocol Stop: 04/01/18 20:59 Last Admin: 02/25/18 13:27 Dose: 250 mg Docusate Sodium (Colace) 250 mg PO DAILY [facility] Stop: 04/02/18 08:59 Last Admin: 02/25/18 09:50 Dose: Not Given Fludrocortisone Acetate (Florinef) 0.1 mg PO BID [facility] Stop: 04/02/18 08:59 Last Admin: 02/25/18 16:55 Dose: Not Given Haloperidol Lactate (Haldol Concentrate 10mg/5ml Susp) 5 mg PO TID [facility]; Protocol Stop: 04/23/18 20:59 Last Admin: 02/25/18 13:27 Dose: 5 mg Lactobacillus Rhamnosus (Culturelle 15b) 1 each PO DAILY [facility] Stop: 04/04/18 08:59 Last Admin: 02/25/18 09:50 Dose: 1 each Levetiracetam (Keppra) 500 mg PO BID [facility] Stop: 04/02/18 08:59 Last Admin: 02/25/18 17:02 Dose: 500 mg Levothyroxine Sodium (Synthroid) 0.15 mg PO QDAC [facility] Stop: 04/02/18 07:29 Last Admin: 02/25/18 06:35 Dose: 0.15 mg Lorazepam (Ativan) 0.5 mg PO Q6HR PRN; Protocol PRN Reason: Agitation Stop: 04/01/18 17:03 Last Admin: 02/23/18 09:26 Dose: 0.5 mg Magnesium Hydroxide (Milk Of Magnesia) 30 ml PO HS PRN PRN Reason: Constipation Magnesium Hydroxide (Milk Of Magnesia) 30 ml PO HS PRN PRN Reason: Constipation Stop: 04/01/18 17:46 Miscellaneous (Probiotic Screen) 1 ea MC PRN PRN PRN Reason: PROTOCOL Stop: 04/03/18 12:14 Multivitamins/Vitamin C (Theragran) 1 tab PO DAILY [facility] Stop: 04/02/18 08:59 Last Admin: 02/25/18 10:51 Dose: 1 tab Quetiapine Fumarate (Seroquel) 50 mg PO BID [facility]; Protocol Stop: 04/06/18 16:59 Last Admin: 02/25/18 17:01 Dose: 50 mg Quetiapine Fumarate 300 mg/ (Quetiapine Fumarate 400 mg) 700 mg PO HS [facility] Stop: 04/11/18 20:59 Last Admin: 02/24/18 20:39 Dose: 700 mg Senna (Senna) 8.6 mg PO HS [facility] Stop: 04/01/18 20:59 Last Admin: 02/24/18 20:39 Dose: 8.6 mg Tolterodine Tartrate (Detrol) 2 mg PO BID [facility] Stop: 04/02/18 08:59 Last Admin: 02/25/18 17:01 Dose: 2 mg Zolpidem Tartrate (Ambien) 5 mg PO HS PRN PRN Reason: Insomnia Stop: 04/01/18 16:55 Last Admin: 02/20/18 20:28 Dose: 5 mg General: weak, demented HEENT: NC/AT, PERRLA, EOMI, anicteric sclerae, throat clear Neck: Supple, No JVD, No thyromegaly, +2 carotid pulse wo bruit, No LAD Lungs: CTAB Cardiovascular: RRR, Normal S1, Normal S2, without murmur Abdomen: soft, non-tender, non-distended Extremities: clear Neurological: no change Internal Medicine Assmt/Plan - Assessment Assessment: 1.SEIZURE DISORDERED. 2.HYPOTHYROIDISIM. 3.DEMENTIA. - Plan Plan: CONTINUE ON CURRENT MEDICATION AND DIET. Nutritional Asmnt/Malnutr-PDOC - Dietary Evaluation Malnutrition Findings (Please click <Entered> for more info): Nutritional Asmnt/Malnutrition Start: 02/06/18 14: 31 Text: Status: Complete Freq: Protocol: Document 02/06/18 14:32 LCHENG (Rec: 02/06/18 14:44 [email or web address] [email or web address]) Nutritional Asmnt/Malnutrition Patient General Information Nutritional Screening Low Risk Diagnosis psychosis Pertinent Medical Hx/Surgical Hx hypothyroidism, seizure disorder, psychosis, dementia Subjective Information Per EMR, PO intake 100%. Pt tolerated regular diet Current Diet Order/ Nutrition Support regular Pertinent Medications colace, culturelle, synthroid, theragran, seroquel, senna Pertinent Labs 01/31 alb 3.5 Nutritional Hx/Data Height 1.7 m Height (Calculated Centimeters) 170.2 Current Weight (lbs) 63.503 kg Weight (Calculated Kilograms) 63.5 Weight (Calculated Grams) 88151.9 [place] Body Weight 135 Body Mass Index (BMI) 21.9 Weight Status Approriate GI Symptoms GI Symptoms None Last BM 02/05 Difficult in: None Skin Integrity/Comment: intact Current %PO Good (75-100%) Estimated Nutritional Goals BEE in Kcals: Using Current wt Calories/Kcals/Kg 25-30 Kcals Calculated 9132-7324 Protein: Using Current wt Protein g/k Protein Calculated 64 Fluid: ml 1600-1920ml (1m/kcal) Nutritional Problem No current Nutrition Prob Problem N/A Malnutrition Alert Is there a minimum of two criteria No selected? Query Text:Check all the applicable criteria. A minimum of two criteria are recommended for diagnosis of either severe or non-severe malnutrition. Malnutrition Related to Morbid Obesity Malnutrition related to morbid obesity No Intervention/Recommendation Comments 1. Continue with regular diet as ordered. 2. Monitor PO intake, wt, labs and skin integrity 3. F/U as low risk in 7 days, 02/13 Expected Outcomes/Goals Expected Outcomes/Goals 1. PO intake to meet at least 75% of nutritional needs. 2. Wt stability, skin to remain intact, labs to approach WNL.
[2018-02-25] MEDS: QUETIAPINE FUMARATE PO SCH (20:50)
[2018-02-26] MEDS: Levothyroxine 0.075 Mg Tab PO SCH (07:03)
[2018-02-26] MEDS: Haldol Oral Sol.(concentrate) 10 mg/5 mL Udc PO SCH ×3 (09:33→21:18)
[2018-02-26] MEDS: Multivitamin Tab PO SCH (09:34)
[2018-02-26] MEDS: Benztropine 1 MG TAB PO SCH ×2 (09:35→17:00)
[2018-02-26] MEDS: Lactobacillus Rhamnosus GG 15 Billion CFU CAP.SPRINK PO SCH (09:40)
--- NOTE | 2018-02-26 17:08 | Progress Notes ---
DATE: 02/26/2018 PSYCHIATRIC PROGRESS NOTE SUBJECTIVE: Chart reviewed and the patient interviewed. Also discussed the patient's condition with the staff and reviewed records and labs. The patient is still confused and restless. The patient also still needs lots of redirections. The patient also still seems to be slightly suspicious and paranoid. Occasionally, sexual inappropriate behavior happens, but not as much. The patient otherwise is compliant with taking her medications with no side effects of medications. ASSESSMENT: The patient is still irritable, agitated, and needs direction. TREATMENT PLAN: Continue to monitor behavior and medications closely. Also, continue working on ineffective coping. JOB# [id number]
[2018-02-26] MEDS: QUETIAPINE FUMARATE PO SCH (21:20)
--- NOTE | 2018-02-26 22:29 | Internal Medicine Prog Note ---
Internal Medicine Subjective - Subjective Service Date: 02/26/18 Patient seen and examined:: with staff Patient is:: awake, non-verbal, in bed, confused Per staff patient has:: no adverse event Internal Medicine Objective - Results Result Diagrams: 01/31/18 13:30 01/31/18 13:30 Recent Labs: Laboratory Last Values WBC 5.2 Th/cmm (4.8-10.8) 01/31/18 13:30 RBC 3.70 Mil/cmm (3.80-5.10) L 01/31/18 13:30 Hgb 12.0 gm/dL (12-16) 01/31/18 13:30 Hct 35.2 % (41.0-60) L 01/31/18 13:30 MCV 95.0 fl (81-100) 01/31/18 13:30 MCH 32.5 pg (27.0-31.0) H 01/31/18 13:30 MCHC Differential 34.2 pg (28.0-36.0) 01/31/18 13:30 RDW 13.1 % (11.5-20.0) 01/31/18 13:30 Plt Count 202 Th/cmm (150-400) 01/31/18 13:30 MPV 6.7 fl 01/31/18 13:30 Neutrophils % 57.8 % (40.0-80.0) 01/31/18 13:30 Lymphocytes % 31.5 % (20.0-50.0) 01/31/18 13:30 Monocytes % 8.7 % (2.0-10.0) 01/31/18 13:30 Eosinophils % 1.1 % (0.0-5.0) 01/31/18 13:30 Basophils % 0.9 % (0.0-2.0) 01/31/18 13:30 Sodium 137 mEq/L (136-145) 01/31/18 13:30 Potassium 4.1 mEq/L (3.5-5.1) 01/31/18 13:30 Chloride 104 mEq/L (98-107) 01/31/18 13:30 Carbon Dioxide 28.3 mEq/L (21.0-31.0) 01/31/18 13:30 Anion Gap 8.8 (7.0-16.0) 01/31/18 13:30 BUN 25 mg/dL (7-25) 01/31/18 13:30 Creatinine 1.1 mg/dL (0.6-1.2) 01/31/18 13:30 Est GFR ( Amer) > 60.0 ml/min (>90) 01/31/18 13:30 Est GFR (Non-Af Amer) 53.7 ml/min 01/31/18 13:30 BUN/Creatinine Ratio 22.7 01/31/18 13:30 Glucose 92 mg/dL (70-105) 01/31/18 13:30 Calcium 9.1 mg/dL (8.6-10.3) 01/31/18 13:30 Total Bilirubin 0.3 mg/dL (0.3-1.0) 01/31/18 13:30 AST 18 U/L (13-39) 01/31/18 13:30 ALT 12 U/L (7-52) 01/31/18 13:30 Alkaline Phosphatase 68 U/L (34-104) 01/31/18 13:30 Troponin I 0.01 ng/mL (0.01-0.05) 01/31/18 13:30 Total Protein 6.6 gm/dL (6.0-8.3) 01/31/18 13:30 Albumin 3.5 gm/dL (3.7-5.3) L 01/31/18 13:30 Globulin 3.1 gm/dL 01/31/18 13:30 Albumin/Globulin Ratio 1.1 (1.0-1.8) 01/31/18 13:30 Triglycerides 111 mg/dL (<150) 01/31/18 13:30 Cholesterol 191 mg/dL (<200) 01/31/18 13:30 LDL Cholesterol Direct 91 mg/dL (75-193) 01/31/18 13:30 HDL Cholesterol 76 mg/dL (23-92) 01/31/18 13:30 TSH 3.99 uIU/ml (0.34-5.60) 01/31/18 13:30 Urine Source CLEAN C 01/31/18 14:00 Urine Color YELLOW 01/31/18 14:00 Urine Clarity HAZY (CLEAR) 01/31/18 14:00 Urine pH 6.0 (4.6 - 8.0) 01/31/18 14:00 Ur Specific [place] 1.010 (1.005-1.030) 01/31/18 14:00 Urine Protein NEGATIVE mg/dL (NEGATIVE) 01/31/18 14:00 Urine Glucose (UA) NEGATIVE mg/dL (NEGATIVE) 01/31/18 14:00 Urine Ketones NEGATIVE mg/dL (NEGATIVE) 01/31/18 14:00 Urine Blood SMALL (NEGATIVE) H 01/31/18 14:00 Urine Nitrate POSITIVE (NEGATIVE) H 01/31/18 14:00 Urine Bilirubin NEGATIVE (NEGATIVE) 01/31/18 14:00 Urine Urobilinogen 0.2 E.U./dL (0.2 - 1.0) 01/31/18 14:00 Ur Leukocyte Esterase MODERATE (NEGATIVE) H 01/31/18 14:00 Urine RBC 2-5 /hpf (0-5) 01/31/18 14:00 Urine WBC 6-10 /hpf (0-5) H 01/31/18 14:00 Ur Epithelial Cells MODERATE /lpf (FEW) 01/31/18 14:00 Urine Bacteria 4+ /hpf (NONE SEEN) H 01/31/18 14:00 Salicylates < 25.0 mg/L (30.0-100.0) L 01/31/18 13:30 Urine Opiates Screen NEGATIVE (NEGATIVE) 01/31/18 14:00 Urine Methadone Screen NEGATIVE (NEGATIVE) 01/31/18 14:00 Acetaminophen < 10.0 ug/mL (10.0-30.0) L 01/31/18 13:30 Ur Barbiturates Screen NEGATIVE (NEGATIVE) 01/31/18 14:00 Valproic Acid 41.5 ug/mL (50.0-100.0) L 02/24/18 06:45 Ur Tricyclics Screen POSITIVE (NEGATIVE) H 01/31/18 14:00 Ur Phencyclidine Scrn NEGATIVE (NEGATIVE) 01/31/18 14:00 Amphetamines Screen NEGATIVE (NEGATIVE) 01/31/18 14:00 U Methamphetamines Scrn NEGATIVE (NEGATIVE) 01/31/18 14:00 U Benzodiazepines Scrn NEGATIVE (NEGATIVE) 01/31/18 14:00 U Cocaine Metab Screen NEGATIVE (NEGATIVE) 01/31/18 14:00 U Cannabinoids Screen NEGATIVE (NEGATIVE) 01/31/18 14:00 Ethyl Alcohol < 10 mg/dL (0-10) 01/31/18 13:30 RPR NONREACTIVE (NONREACTIVE) 01/31/18 13:30 - Physical Exam Vitals and I&O: Vital Signs Temp 97.8 F 02/26/18 20:00 Pulse 82 02/26/18 20:00 Resp 18 02/26/18 20:00 BP 124/83 02/26/18 20:00 Pulse Ox 99 02/26/18 20:00 Intake & Output 02/26/18 02/26/18 02/27/18 06:59 18:59 06:59 Intake Total 120 1600 Balance 120 1600 Intake: Oral 120 1600 Other: # Voids 3 4 # Bowel Movements 0 Active Medications: Current Medications Acetaminophen (Tylenol) 650 mg PO Q4HR PRN PRN Reason: Mild Pain / Temp above 100 Stop: 04/01/18 16:55 Last Admin: 02/23/18 09:24 Dose: 650 mg Al Hydrox/Mg Hydrox/Simethicone (Maalox) 30 ml PO Q4HR PRN PRN Reason: GI DISTRESS Stop: 04/01/18 16:55 Benztropine Mesylate (Cogentin) 2 mg PO BID [facility] Stop: 04/02/18 08:59 Last Admin: 02/26/18 17:00 Dose: 2 mg Carbamazepine (Tegretol) 400 mg PO BID [facility]; Protocol Stop: 04/02/18 08:59 Last Admin: 02/26/18 17:01 Dose: 400 mg Divalproex Sodium (Depakote Dr) 250 mg PO TID [facility]; Protocol Stop: 04/01/18 20:59 Last Admin: 02/26/18 21:19 Dose: 250 mg Docusate Sodium (Colace) 250 mg PO DAILY [facility] Stop: 04/02/18 08:59 Last Admin: 02/26/18 09:35 Dose: 250 mg Fludrocortisone Acetate (Florinef) 0.1 mg PO BID [facility] Stop: 04/02/18 08:59 Last Admin: 02/26/18 17:31 Dose: 0.1 mg Haloperidol Lactate (Haldol Concentrate 10mg/5ml Susp) 5 mg PO TID [facility]; Protocol Stop: 04/23/18 20:59 Last Admin: 02/26/18 21:18 Dose: 5 mg Lactobacillus Rhamnosus (Culturelle 15b) 1 each PO DAILY [facility] Stop: 04/04/18 08:59 Last Admin: 02/26/18 09:40 Dose: 1 each Levetiracetam (Keppra) 500 mg PO BID [facility] Stop: 04/02/18 08:59 Last Admin: 02/26/18 17:00 Dose: 500 mg Levothyroxine Sodium (Synthroid) 0.15 mg PO QDAC [facility] Stop: 04/02/18 07:29 Last Admin: 02/26/18 07:03 Dose: Not Given Lorazepam (Ativan) 0.5 mg PO Q6HR PRN; Protocol PRN Reason: Agitation Stop: 04/01/18 17:03 Last Admin: 02/23/18 09:26 Dose: 0.5 mg Magnesium Hydroxide (Milk Of Magnesia) 30 ml PO HS PRN PRN Reason: Constipation Magnesium Hydroxide (Milk Of Magnesia) 30 ml PO HS PRN PRN Reason: Constipation Stop: 04/01/18 17:46 Miscellaneous (Probiotic Screen) 1 ea MC PRN PRN PRN Reason: PROTOCOL Stop: 04/03/18 12:14 Multivitamins/Vitamin C (Theragran) 1 tab PO DAILY [facility] Stop: 04/02/18 08:59 Last Admin: 02/26/18 09:34 Dose: 1 tab Quetiapine Fumarate (Seroquel) 50 mg PO BID [facility]; Protocol Stop: 04/06/18 16:59 Last Admin: 02/26/18 17:00 Dose: 50 mg Quetiapine Fumarate 300 mg/ (Quetiapine Fumarate 400 mg) 700 mg PO HS [facility] Stop: 04/11/18 20:59 Last Admin: 02/26/18 21:20 Dose: 700 mg Senna (Senna) 8.6 mg PO HS [facility] Stop: 04/01/18 20:59 Last Admin: 02/26/18 21:19 Dose: 8.6 mg Tolterodine Tartrate (Detrol) 2 mg PO BID [facility] Stop: 04/02/18 08:59 Last Admin: 02/26/18 17:00 Dose: 2 mg Zolpidem Tartrate (Ambien) 5 mg PO HS PRN PRN Reason: Insomnia Stop: 04/01/18 16:55 Last Admin: 02/26/18 21:20 Dose: 5 mg General: weak, demented HEENT: NC/AT, PERRLA, EOMI, anicteric sclerae, throat clear Neck: Supple, No JVD, No thyromegaly, +2 carotid pulse wo bruit, No LAD Lungs: CTAB Cardiovascular: RRR, Normal S1, Normal S2, without murmur Abdomen: soft, non-tender, non-distended Extremities: clear Neurological: no change Internal Medicine Assmt/Plan - Assessment Assessment: 1.SEIZURE DISORDERED. 2.HYPOTHYROIDISIM. 3.DEMENTIA. - Plan Plan: CONTINUE ON CURRENT MEDICATION AND DIET. Nutritional Asmnt/Malnutr-PDOC - Dietary Evaluation Malnutrition Findings (Please click <Entered> for more info): Nutritional Asmnt/Malnutrition Start: 02/06/18 14: 31 Text: Status: Complete Freq: Protocol: Document 02/06/18 14:32 LCHENG (Rec: 02/06/18 14:44 LCHENG [email or web address]) Nutritional Asmnt/Malnutrition Patient General Information Nutritional Screening Low Risk Diagnosis psychosis Pertinent Medical Hx/Surgical Hx hypothyroidism, seizure disorder, psychosis, dementia Subjective Information Per EMR, PO intake 100%. Pt tolerated regular diet Current Diet Order/ Nutrition Support regular Pertinent Medications colace, culturelle, synthroid, theragran, seroquel, senna Pertinent Labs 01/31 alb 3.5 Nutritional Hx/Data Height 1.7 m Height (Calculated Centimeters) 170.2 Current Weight (lbs) 63.503 kg Weight (Calculated Kilograms) 63.5 Weight (Calculated Grams) 98807.9 [place] Body Weight 135 Body Mass Index (BMI) 21.9 Weight Status Approriate GI Symptoms GI Symptoms None Last BM 02/05 Difficult in: None Skin Integrity/Comment: intact Current %PO Good (75-100%) Estimated Nutritional Goals BEE in Kcals: Using Current wt Calories/Kcals/Kg 25-30 Kcals Calculated 6159-7097 Protein: Using Current wt Protein g/k Protein Calculated 64 Fluid: ml 1600-1920ml (1m/kcal) Nutritional Problem No current Nutrition Prob Problem N/A Malnutrition Alert Is there a minimum of two criteria No selected? Query Text:Check all the applicable criteria. A minimum of two criteria are recommended for diagnosis of either severe or non-severe malnutrition. Malnutrition Related to Morbid Obesity Malnutrition related to morbid obesity No Intervention/Recommendation Comments 1. Continue with regular diet as ordered. 2. Monitor PO intake, wt, labs and skin integrity 3. F/U as low risk in 7 days, 02/13 Expected Outcomes/Goals Expected Outcomes/Goals 1. PO intake to meet at least 75% of nutritional needs. 2. Wt stability, skin to remain intact, labs to approach WNL.
[2018-02-27] MEDS: Levothyroxine 0.075 Mg Tab PO SCH (07:30)
[2018-02-27] MEDS: Lactobacillus Rhamnosus GG 15 Billion CFU CAP.SPRINK PO SCH (10:03)
[2018-02-27] MEDS: Benztropine 1 MG TAB PO SCH (10:03)
[2018-02-27] MEDS: Multivitamin Tab PO SCH (10:04)
[2018-02-27] MEDS: Haldol Oral Sol.(concentrate) 10 mg/5 mL Udc PO SCH (10:05)
--- NOTE | 2018-02-27 20:57 | Discharge Summary ---
DATE OF DISCHARGE: 02/27/2018 JUSTIFICATION FOR HOSPITALIZATION: Agitation, psychosis. HISTORY OF PRESENT ILLNESS: A 62-year-old female, bizarre, presented due to agitation, hostile behaviors, making bizarre statements, nonsensical, states she [place] to go live [place] a [place], pacing back and forth, at times throwing things at staff. PAST PSYCHIATRIC HISTORY: Schizophrenia. SOCIAL HISTORY: No confirmation that she has a home for all intents and purposes. It appears that she is homeless. MEDICATIONS: Reviewed. MENTAL STATUS EXAMINATION: Please see full psych eval for details. PROVISIONAL DIAGNOSIS: Schizophrenia. MEDICAL: Please see full H and P. HOSPITAL COURSE: After initial assessment, the patient was restarted on medications. Medications were adjusted and titrated, Seroquel for example, Haldol, Tegretol. Over the course of the hospitalization, she began to approach her baseline, less agitated, less combative, no longer throwing things. She remained somewhat disorganized, stating her name is Amy Gordon amongst other famous characters but she was no longer violent, no overt evidence of dangerousness. She was taking her medications. No striking out behaviors. No SI, no HI, sleeping well, eating well. By 02/27/2018 she approached her baseline. Tolerant of treatment and was discharged. CONDITION UPON DISCHARGE: Improved. Fair ADLs. Fair eye contact. Mood "fine." Affect flat. Thought processes remain disorganized. No SI, no HI, no intent, no plan. No auditory or visual hallucinations noted by the patient, although it seems that she was mumbling to self. Insight and judgment better, taking her medications and better impulse control. DISCHARGE DIAGNOSIS: Schizophrenia. MEDICAL: Please see full H and P. PROGNOSIS: The patient follows up with outpatient mental health services and remains compliant with treatment. Prognosis will improve, otherwise guarded. [facility]# [id number]
== END 2018-02-27 14:00 | DRG 885 ==
LOC: ER 13:08 → GERO 15:10
PROVIDERS: ADMIT Psychiatry & Neurology Psychiatry; ATTEND Psychiatry & Neurology Psychiatry
DX: F20.9 Schizophrenia, unspecified (principal); N39.0 Urinary tract infection, site not specified; F29 Unspecified psychosis not due to a substance or known physiological condition; F41.9 Anxiety disorder, unspecified; I10 Essential (primary) hypertension; F31.9 Bipolar disorder, unspecified; E03.9 Hypothyroidism, unspecified; G40.909 Epilepsy, unspecified, not intractable, without status epilepticus; F03.90 Unspecified dementia, unspecified severity, without behavioral disturbance, psychotic disturbance, mood disturbance, and anxiety; F39 Unspecified mood [affective] disorder; Z82.49 Family history of ischemic heart disease and other diseases of the circulatory system
CPT/HCPCS: 36415-UA; 80053-TC; 80061-TC; 80164-TC; 80307; 80320-TC; 80329-TC; 81001-TC; 83036-90; 84443-TC; 84484-TC; 85025-TC; 86592-TC; 87086-90; 90899; 93005; G0410; J1200; J1630; J2060; Z7610

== ENCOUNTER 2018-05-08 11:43 | Emergency (ER) | payer MEDICARE, MEDICAID ==
[2018-05-08 12:21] LABS: % BASOPHILS 0.4 % (0.0-2.0); % EOSINOPHILS 1.7 % (0.0-5.0); % LYMPHOCYTES 21.6 % (20.0-50.0); % MONOCYTES 9.4 % (2.0-10.0); % NEUTROPHILS 66.9 % (40.0-80.0); EOSINOPHILE ABSOLUTE 0.1 Th/cmm (0.1-0.4); HEMATOCRIT 33.4 % (41.0-60); HEMOGLOBIN 11.5 gm/dL (12-16); LYMPHOCYTE ABSOLUTE 1.3 Th/cmm (1.5-3.0); MEAN CELL VOLUME 96.8 fl (81-100); MEAN CORPUSCULAR HEMOGLOBIN 33.3 pg (27.0-31.0); MEAN CORPUSCULAR HGB CONC 34.4 pg (28.0-36.0); MEAN PLATELET VOLUME 6.7 fl; MONOCYTE ABSOLUTE 0.5 Th/cmm (0.3-1.0); NEUTROPHILE ABSOLUTE 3.9 Th/cmm (1.8-8.0); PLATELET COUNT 135 Th/cmm (150-400); RED BLOOD COUNT 3.45 Mil/cmm (3.80-5.10); RED CELL DISTRIBUTION WIDTH 13.7 % (11.5-20.0); WHITE BLOOD COUNT 5.8 Th/cmm (4.8-10.8)
[2018-05-08 12:29] LABS: URINE SOURCE CLEAN C
[2018-05-08 12:32] LABS: ACETAMINOPHEN < 10.0 ug/mL (10.0-30.0); ALB/GLOB RATIO 0.9 (1.0-1.8); ALBUMIN 3.4 gm/dL (3.7-5.3); ALKALINE PHOSPHATASE 48 U/L (34-104); ANION GAP 8.6 (7.0-16.0); BILIRUBIN,TOTAL 0.2 mg/dL (0.3-1.0); CALCIUM SERUM 9.9 mg/dL (8.6-10.3); CARBON DIOXIDE 30.1 mEq/L (21.0-31.0); CHLORIDE 105 mEq/L (98-107); CHOLESTEROL 169 mg/dL (<200); GLUCOSE 77 mg/dL (70-105); HDL -HIGH DENSITY LIPOPROTEIN 79 mg/dL (23-92); POTASSIUM SERUM 4.7 mEq/L (3.5-5.1); SALICYLATES (ASPIRIN) < 25.0 mg/L (30.0-100.0); SGOT 21 U/L (13-39); SGPT/ALT 12 U/L (7-52); SODIUM SERUM 139 mEq/L (136-145); TRIGLYCERIDES 73 mg/dL (<150)
[2018-05-08 12:36] LABS: URINE BILIRUBIN NEGATIVE (NEGATIVE); URINE BLOOD TRACE (NEGATIVE); URINE GLUCOSE (UA) NEGATIVE (NEGATIVE); URINE KETONE NEGATIVE (NEGATIVE); URINE LEUKOCYTE ESTERASE NEGATIVE (NEGATIVE); URINE MICROSCOPIC INDICATED? YES; URINE NITRATE NEGATIVE (NEGATIVE); URINE PROTEIN NEGATIVE (NEGATIVE); URINE UROBILINOGEN 0.2 E.U./dL (0.2 - 1.0)
[2018-05-08 12:54] LABS: AMPHETAMINE URINE NEGATIVE (NEGATIVE); BARBITURATES URINE NEGATIVE (NEGATIVE); COCAINE METABOLITE QUAL URINE NEGATIVE (NEGATIVE); METHAMPHETAMINES QUAL URINE NEGATIVE (NEGATIVE); PHENCYCLIDINE (PCP) URINE NEGATIVE (NEGATIVE)
[2018-05-08 12:55] LABS: BENZODIAZEPINES QUAL URINE NEGATIVE (NEGATIVE); CANNABINOID THC NEGATIVE (NEGATIVE); METHADONE URINE NEGATIVE (NEGATIVE); OPIATES (MORPHINE) QUAL. URINE NEGATIVE (NEGATIVE); TRICYCLICS (TCA) QUAL. URINE NEGATIVE (NEGATIVE)
[2018-05-08 13:08] LABS: URINE CLARITY CLEAR (CLEAR); URINE COLOR YELLOW
--- NOTE | 2018-05-08 13:08 | ED Physician Chart ---
ED Chief Complaint/HPI - Patient Information Date Seen:: 05/08/18 Time Seen:: 11:50 Chief Complaint:: Agitation History of Present Illness:: onset x 2 days of agitation and hostile behavior; no report of trauma, SIs, H/As , S/T, neck pain, cough, C/P, SOB, Abd. Pain, A/N/V/D/C, fever, chills, or urinary s/s Allergies:: Allergies Allergy/AdvReac Type Severity Reaction Status Date / Time No Known Allergies Allergy Verified 01/31/18 13:20 Vitals:: Vital Signs - 8 hr 05/08/18 11:51 Temp 97.8 F HR 57 RR 17 BP 133/79 O2 Sat % 100 Historian:: Patient, EMS Review:: Nurse's Note Reviewed, Old Chart Reviewed, EMS run form Reviewed ED Review of Systems - Review of Systems General/Constitutional: No fever, No chills, No weight loss, No weakness, No diaphoresis, No edema, No loss of appetite Skin: No skin lesions, No rash, No bruising Head: No headache, No light-headedness Eyes: No loss of vision, No pain, No diplopia ENT: No earache, No nasal drainage, No sore throat, No tinnitus Neck: No neck pain, No swelling, No thyromegaly, No stiffness, No mass noted Cardio Vascular: No chest pain, No palpitations, No PND, No orthopnea, No edema Pulmonary: No SOB, No cough, No sputum, No wheezing GI: No nausea, No vomiting, No diarrhea, No pain, No melena, No hematochezia, No constipation, No hematemesis G/U: No dysuria, No frequency, No hematuria Musculoskeletal: No bone or joint pain, No back pain, No muscle pain Endocrine: No polyuria, No polydipsia Psychiatric: Prior psych history, No depression, Anxiety, No suicidal ideation, No homicidal ideation, Auditory hallucination, No visual hallucination Hematopoietic: No bruising, No lymphadenopathy Allergic/Immuno: No urticaria, No angioedema Neurological: No syncope, No focal symptoms, No weakness, No paresthesia, No headache, No seizure, No dizziness, No confusion, No vertigo ED Past Medical History - Past Medical History Obtainable: Yes Past Medical History: Thyroid disorder Family History: None Social History: Non Smoker, No Alcohol, No Drug Use, Single, Care Facility Surgical History: None Psychiatricy History: Schizophrenia Medication: Reviewed Family Medical History - Family Member Mother History Unknown: Yes ED Physical Exam - Physical Examination General/Constitutional: Awake, Well-developed, well-nourished, Alert, No distress, GCS 15, Non-toxic appearing, Ambulatory Head: Atraumatic Eyes: Lids, conjuctiva normal, PERRL, EOMI Skin: Nl inspection, No rash, No skin lesions, No ecchymosis, Well hydrated, No lymphadenopathy ENMT: External ears, nose nl, TM canals nl, Nasal exam nl, Lips, teeth, gums nl , Oropharynx nl, Tonsils nl Neck: Nontender, Full ROM w/o pain, No JVD, No nuchal rigidity, No bruit, No mass, No stridor Respiratory: Nl effort/Exclusion, Clear to Auscultation, No Wheeze/Rhonchi/Rales Cardio Vascular: RRR, No murmur, gallop, rubs, NL S1 S2, Carotid/Femoral/Distal pulses equal bilaterally GI: No tenderness/rebounding/guarding, No organomegaly, No hernia, Normal BS's, Nondistended, No mass/bruits, No McBurney tenderness : No CVA tenderness Extremities: No tenderness or effusion, Full ROM, normal strength in all extremities, No edema, Normal digits & nails Neuro/Psych: Alert/oriented, DTR's symmetric, Normal sensory exam, Normal motor strength, Judgement/insight normal, Mood normal, Normal gait, No focal deficits Other Neuro/Psych comments:: + Psychomotor Agitation; no SIs; Mood/Affect: Stable Misc: Normal back, No paraspinal tenderness ED Labs/Radiology/EKG Results - Lab Results Results: Laboratory Tests 05/08/18 05/08/18 12:08 12:20 WBC 5.8 RBC 3.45 L Hgb 11.5 L Hct 33.4 L MCV 96.8 MCH 33.3 H MCHC Differential 34.4 RDW 13.7 Plt Count 135 L MPV 6.7 Neutrophils % 66.9 Lymphocytes % 21.6 Monocytes % 9.4 Eosinophils % 1.7 Basophils % 0.4 Urine Opiates Screen NEGATIVE Urine Methadone Screen NEGATIVE Ur Barbiturates Screen NEGATIVE Ur Tricyclics Screen NEGATIVE Ur Phencyclidine Scrn NEGATIVE Amphetamines Screen NEGATIVE U Methamphetamines Scrn NEGATIVE U Benzodiazepines Scrn NEGATIVE U Cocaine Metab Screen NEGATIVE U Cannabinoids Screen NEGATIVE Comments:: Reviewed - EKG Interpretations EKG Time:: 12:30 Rate & Rhythm: 57; SB Comments:: LVH; non-specific st-t changes ED Septic Shock - . Is Septic Shock (SBP<90, OR Lactate>4 mmol\L) present?: No - <6hrs of presentation: Vital Signs: Vital Signs - 8 hr 05/08/18 11:51 Temp 97.8 F HR 57 RR 17 BP 133/79 O2 Sat % 100 ED Reassessment (Disposition) - Reassessment Reassessment Condition:: Improved - Diagnosis Diagnosis:: Dx: Agitation; Psychosis; Medical Clearance; Schizophrenia; Bipolar Disorder - Aftercare/Follow up Instructions Aftercare/Follow-Up Instructions:: Counseled pt regarding lab results/diagnosis & need follow up, Counseled pt & family regarding lab results/diagnosis & need follow up - Patient Disposition Discharge/Transfer:: Acute Care w/in this hosp Admitted to:: [facility] Condition at Disposition:: Stable, Improved
[2018-05-08 13:09] LABS: URINE RBC NONE SEEN /hpf (0-5)
[2018-05-08 13:10] LABS: URINE BACTERIA MODERATE /hpf (NONE SEEN); URINE EPITHELIAL CELLS OCCASIONAL /lpf (FEW); URINE WBC 0-2 /hpf (0-5)
[2018-05-08 13:25] LABS: BUN - UREA NITROGEN 42 mg/dL (7-25); CREATININE - SERUM 1.2 mg/dL (0.6-1.2); GFR AFRICAN-AMERICAN 58.5 ml/min (>90); GFR NON AFRICAN-AMERICAN 48.4 ml/min
== END 2018-05-08 15:00 | disposition home or self-care (01) ==
LOC: ER 11:43
DX: F29 Unspecified psychosis not due to a substance or known physiological condition (principal); F20.9 Schizophrenia, unspecified; F31.9 Bipolar disorder, unspecified; E07.9 Disorder of thyroid, unspecified; R94.31 Abnormal electrocardiogram [ECG] [EKG]
CPT/HCPCS: 36415-UA; 80053-TC; 80061-TC; 80307; 80320-TC; 80329-TC; 81001-TC; 84443-TC; 84484-TC; 85025-TC; 86592-TC; 87086-90; 93005; Z7502